=== PATIENT | female | born 2005 | race Caucasian/White ===

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

== ENCOUNTER 2023-04-10 14:03 | Outpatient (CLI) | payer BC, SELFPAY ==
[2023-04-10 16:20] LABS: HCG,Quantitative 98476 mIU/ml (0-5.42)
== END 2023-04-10 23:59 ==
LOC: LAB 14:04
PROVIDERS: Visit Provider Nurse Practitioner Family
DX: Z34.91 Encounter for supervision of normal pregnancy, unspecified, first trimester; Z3A.08 8 weeks gestation of pregnancy
CPT/HCPCS: 36415; 84144; 84702

== ENCOUNTER 2023-04-12 16:45 | Outpatient (CLI) | payer BC, SELFPAY ==
[2023-04-12 17:33] LABS: Basophils % 0.4 % (0.1-2.0); Eosinophils # 0.4 K/mm3 (0.0-0.4); Eosinophils % 4.2 % (0.1-12.0); Hematocrit 38.5 % (37.0-47.0); Hemoglobin 13.5 g/dL (12.2-16.2); Lymphocytes # 2.3 K/mm3 (0.7-4.5); Lymphocytes % 24.5 % (10-50); Mean Corpuscular HGB Conc 35.1 g/dL (31.8-35.4); Mean Corpuscular Hemoglobin 30.9 pg (27.0-31.2); Mean Corpuscular Volume 88.1 fl (81-99); Mean Platelet Volume 9.9 fl (7.4-10.4); Monocytes # 0.4 K/mm3 (0.1-1.0); Monocytes % 4.3 % (1.7-9.3); Neutrophils # 6.4 K/mm3 (1.8-7.8); Neutrophils % 66.6 % (37.0-80.0); Platelet Count 188 K/mm3 (142-424); Red Blood Count 4.37 M/mm3 (4.20-5.40); Red Cell Distribution Width 13.3 % (11.5-17.5); White Blood Count 9.6 K/mm3 (4.5-13.0)
[2023-04-13 11:36] LABS: Rapid Plasma Reagin Ab Titer Non Reactive titer (NonRea<1:1)
[2023-04-14 06:43] LABS: Neisseria gonorrhoeae, NAA Negative (Negative)
[2023-04-15 10:41] LABS: HIV Screen 4th Generation wRfx Non Reactive; Hepatitis B Surface Antigen Negative; Hepatitis C Antibody Non Reactive
[2023-04-15 10:42] LABS: Rubella Antibodies, IgG 1.45
== END 2023-04-12 23:59 ==
LOC: LAB 16:48
PROVIDERS: Visit Provider Obstetrics & Gynecology
DX: Z34.91 Encounter for supervision of normal pregnancy, unspecified, first trimester (principal); Z3A.08 8 weeks gestation of pregnancy
CPT/HCPCS: 36415; 85025; 86593; 86703; 86762; 86850; 87086; 87340; 87380; 87491; 87591; G0432

== ENCOUNTER 2023-04-13 16:01 | Outpatient (CLI) | payer BC, SELFPAY ==
--- NOTE | 2023-04-13 16:04 | US_ITS ---
PROCEDURE: US OB <= 14 WEEKS FETUS CLINICAL INDICATION: US OB Before 14 wks for Dates COMPARISON: No exams were available for comparison FINDINGS: Transvaginal sonographic images of the pelvis were obtained. From her last menstrual period she is 13weeks 3days. An intrauterine gestational sac is present with a pole with a crown-rump length of 2.2cm This correlates to a gestational age of 8weeks 6days. heart tones are present with an FHR of 172bpm. Yolk sac is noted. The yolk sac measures 6.9mm. The right ovary is seen and appears normal. The left ovary is seen and appears normal. A corpus luteum is seen in the left ovary. There is trace fluid in the cul-de-sac. IMPRESSION: 1. Viable fetus within the uterine cavity. There is heart rate activity. 2. The fetus measures 8 weeks 6 days. 3. Both ovaries are seen and appear normal. 4. Her dates are off by 5 weeks and her due date should be revised to reflect this. Her revised DIEGO will be 11/17/2023. Dictated by: Navneet White MD 04/14/2023 12:56 Navneet White MD in OV 04/14/2023 12:56
== END 2023-04-13 23:59 ==
LOC: RAD 16:01
PROVIDERS: Visit Provider Obstetrics & Gynecology
DX: Z34.91 Encounter for supervision of normal pregnancy, unspecified, first trimester (principal); Z3A.08 8 weeks gestation of pregnancy
CPT/HCPCS: 76801

== ENCOUNTER 2023-05-13 00:12 | Emergency (ER) | payer BC, SELFPAY ==
--- NOTE | 2023-05-13 00:16 | HMH.EDGENADL ---
Discharge Plan Disposition Patient Disposition: Home, Self-Care Chief Complaint: Eye Problems Prescriptions Prescriptions: No Action progesterone micronized [Prometrium] 100 mg capsule 100 mg vaginal DAILY 21 Days Qty: 30 2RF Rx Instructions: Please place one tablet vaginally each night until 12 weeks gestation ondansetron 4 mg tablet,disintegrating 4 mg PO Q6H Qty: 30 1RF [id number] acid 1 EACH tablet,chewable 1 tab PO DAILY Activity Restrictions/Add. Instructions Additional Instructions/Restrictions: Use erythromycin ointment 4 times per day for the next few days in case you have a scratch on the eye. This is most likely allergic however, recommend taking xryo-xpi-smeavdz allergy medication and avoiding exposure to the allergen. Please follow-up with your primary care provider. Please return to the emergency department if you develop any new or worsening symptoms or become concerned for your health. Clinical Impressions Clinical Impression: Acute allergic conjunctivitis of left eye Discharge ED Provider: Yosvany Martínez Adult HPI General Stated complaint: Left eye redness Time Seen by Provider: 05/13/23 00:15 History of Present Illness HPI narrative: 17-year-old female, reportedly actively , presents with left eye redness. She reports this happened about 10 minutes ago. She is allergic to dogs and then touched her left eye and then it started getting a little swollen. She reports she feels like there might be something in it. She denies significant pain. She denies vision changes. Related Data Home Medications Medication Instructions Recorded Confirmed vitamin no.115-iron 29 1 tab PO DAILY 07/20/20 05/10/23 mg-folic acid 1 mg chewable tablet Previous Rx's Medication Instructions Recorded progesterone micronized 100 mg 100 mg vaginal DAILY 21 days #30 04/12/23 capsule (Prometrium) caps ondansetron 4 mg disintegrating 4 mg PO Q6H #30 tabs 04/23/23 tablet Allergies Allergy/AdvReac Type Severity Reaction Status Date / Time No Known Allergies Allergy Verified 05/10/23 13:25 [facility] Disclaimer: The information contained in this section may have been updated after the patient was seen, as this information can be updated by other users. Medical History No significant past medical history Surgical History No history of previous surgery Social History Smoking Status: Current every day smoker tobacco type: cigarettes packs per day: 1 second hand exposure: Yes alcohol intake: never substance use type: marijuana current occupational status: other Travel in the last 8 weeks: None household members: family housing: house ROS Obtained: Yes All systems reviewed & no additional complaints except as documented Physical Exam General General appearance: alert and in no apparent distress Head Head exam: atraumatic and normocephalic Eye Eye exam: Present PERRL, EOMI and other (Mild left conjunctival injection and mucous membrane swelling. No evidence of corneal abrasion or foreign body on fluorescein staining.) ENT ENT exam: Present normal oropharynx and normal external ear exam Neck Neck exam: Present normal inspection and full ROM Chest Chest inspection: Present normal inspection and symmetric chest wall rise; Absent tenderness Respiratory Respiratory exam: Present normal lung sounds bilaterally; Absent respiratory distress Cardiovascular Cardiovascular exam: Present regular rate and normal rhythm Abdominal Exam Abdominal exam: Present soft; Absent distention, tenderness or guarding Extremities Exam Extremities exam: Present normal inspection; Absent edema or joint swelling Back Exam Back exam: Present normal inspection; Absent tenderness Neurological Exam Neurological exam: Present alert and oriented X3; Absent motor sensory deficit Psychiatric Psychiatric exam: Present normal affect and normal mood Skin Skin exam: Present warm, dry and normal color Lymphatic Lymphatic Findings: no adenopathy Medical Decision Making Medical Records Medical records reviewed: Yes I reviewed the patient's medical records. Corey Inquiry Pt receiving controlled substance: No Corey was queried for this patient: No Lab Data Lab results reviewed: Yes I reviewed the patient's lab results. Medical Decision Narrative: 17-year-old female, patient complicated with , presents with left eye redness for the last 10 minutes after she touched a dog and then touched her left eye. She is allergic to dogs. Differential diagnosis includes is not limited to allergic conjunctivitis, foreign body, corneal abrasion. Fluorescein staining performed and shows no evidence of corneal abrasion or foreign body. Exam is consistent with allergic conjunctivitis. Low concern for emergent pathology at this time. Patient was given erythromycin ointment out of an abundance of caution and instructed to use [id number]-[id number] antihistamines and avoid exposure to the allergen. Patient discharged in stable condition. Procedures Risk/Benefits of Procedure(s) Were Explained: Yes Critical Care Critical Care Time Critical Care Time: No
[2023-05-13 00:21] VITALS: BP 145/92; PULSE 104; RESP 18; TEMP 36.6; O2SAT 98; BMI 27.8
[2023-05-13] MEDS: ERYTHROMYCIN BASE 1 GM OINT...G. OP (00:30)
[2023-05-13] MEDS: FLUORESCEIN SODIUM 1MG STRIP 1 MG OP (00:30)
[2023-05-13] MEDS: TETRACAINE 0.5% OPTH SOL 15ML OP (00:30)
[2023-05-13 00:44] VITALS: BP 128/81; PULSE 100; RESP 18; TEMP 36.6; O2SAT 98
== END 2023-05-13 00:37 | disposition home or self-care (01) ==
PROVIDERS: Emergency Provider Emergency Medicine
DX: H10.12 Acute atopic conjunctivitis, left eye (principal); F17.210 Nicotine dependence, cigarettes, uncomplicated
CPT/HCPCS: 99283

== ENCOUNTER 2023-07-28 00:25 | Emergency (ER) | payer BC, SELFPAY ==
[2023-07-28] VITALS (9 sets, daily range): BP systolic 98–135; BP diastolic 52–84; PULSE 74–90; RESP 15–20; TEMP 36.6; O2SAT 95–98; BMI 28.9
--- NOTE | 2023-07-28 00:34 | ECG_ITS ---
APPROVED REPORT Exam: Resting ECG HR:90 bpm ECG Measurements Heart Rate 90 AXES IN 129 P 11 QRSd 92 QRS 68 QT 357 T 16 QTc 405 Conclusion SINUS RHYTHM NONSPECIFIC T-WAVE ABNORMALITY BORDERLINE ECG No STEMI Electronically signed by : RADHA NELSON, 07/28/2023 06:07:37
--- NOTE | 2023-07-28 00:58 | XR_ITS ---
PROCEDURE INFORMATION: Exam: XR Chest Exam date and time: 07/28/2023 1:09 AM Age: 18 years old Clinical indication: Pain; Chest pressure; Additional info: Cp TECHNIQUE: Imaging protocol: Radiologic exam of the chest. Views: 1 view. COMPARISON: CR CXR2V XR chest 2V 06/03/2017 9:03 PM FINDINGS: Lungs: Low lung volumes without definite focal airspace consolidation. Pleural spaces: No pneumothorax. Heart/Mediastinum: Unremarkable cardiomediastinal silhouette. Bones/joints: No acute osseous findings. IMPRESSION: Low lung volumes without definite focal airspace consolidation.
[2023-07-28 01:06] LABS: Basophils # 0.1 K/mm3 (0-0.2); Basophils % 0.7 % (0.1-2.0); Eosinophils # 0.3 K/mm3 (0.0-0.4); Eosinophils % 3.2 % (0.1-12.0); Hematocrit 35.8 % (37.0-47.0); Lymphocytes # 2.2 K/mm3 (0.7-4.5); Lymphocytes % 25.2 % (10-50); Mean Corpuscular HGB Conc 33.5 g/dL (31.8-35.4); Mean Corpuscular Hemoglobin 31.6 pg (27.0-31.2); Mean Corpuscular Volume 94.4 fl (81-99); Mean Platelet Volume 9.6 fl (7.4-10.4); Monocytes # 0.4 K/mm3 (0.1-1.0); Monocytes % 4.6 % (1.7-9.3); Neutrophils # 5.7 K/mm3 (1.8-7.8); Neutrophils % 66.3 % (37.0-80.0); Platelet Count 189 K/mm3 (142-424); Red Cell Distribution Width 14.1 % (11.5-17.5); White Blood Count 8.6 K/mm3 (4.5-13.0)
[2023-07-28] MEDS: BELLADONNA ALKALOIDS 60 ML ML PO (01:06)
[2023-07-28 01:07] LABS: Chloride 106 mmol/L (98-107); Potassium 3.7 mmoL/L (3.5-5.1); Sodium 135 mmol/L (136-145)
[2023-07-28 01:09] LABS: Alanine Aminotransferase 159 U/L (12-78); Alkaline Phosphatase 107 U/L (38-126); Aspartate Amino Transferase 174 U/L (14-36); Bilirubin,Total 0.6 mg/dl (0.2-1.3); Blood Urea Nitrogen 5 mg/dl (7-17); Creatinine Clearance Estimated 254 mL/min (50-200); Estimated Glomerular Filt Rate 203 ml/min (>60); GFR (African American) 246 ML/MIN (>60)
[2023-07-28 01:10] LABS: Albumin Level 3.8 g/dl (3.5-5.0); Albumin/Globulin Ratio 1.2 (1.1-1.8); Anion Gap 10.7 mEq/L (5-15); Calcium 9.2 mg/dl (8.4-10.2); Carbon Dioxide 22 mmol/L (22.0-30.0); Globulin 3.1 g/dL (1.3-3.2); Glucose 97 mg/dl (74-100); Lipase 87 U/L (23-300); Total Protein,Serum 6.9 g/dl (6.3-8.2)
--- NOTE | 2023-07-28 01:18 | ED_ITS ---
Discharge Plan Disposition Patient Disposition: Home, Self-Care Condition: Good Prescriptions Prescriptions: New famotidine 20 mg tablet 20 mg PO DAILY Qty: 14 0RF No Action [id number] 1 EACH tablet,chewable 1 tab PO DAILY Referrals Follow up/Referrals: Phoebe Cifuentes DO [Staff Physician] - See instructions (needs close follow up for chest pain, dyspepsia, biliary symptoms in , urine follow up) Ventura Watson MD [Staff Physician] - See instructions (24w , biliary colic, biliary sludge) Matthew Gandhi MD [Staff Physician] - See instructions (24w chest pain) Provider,MD Tru [Primary Care Provider] - See instructions Activity Restrictions/Add. Instructions Additional Instructions/Restrictions: You were evaluated in the ER. You are appropriate for discharge at this time. Take the prescribed famotidine (Pepcid) as directed. Avoid using Tums if possible. Drink plenty of water. Call OB and make an appointment for follow-up as soon as possible. Also follow-up with cardiology and general surgery regarding your chest pain and sludge in the gallbladder. Return to the ER with new, worsening, or otherwise concerning symptoms. Clinical Impressions Clinical Impression: Sludge in gallbladder, Chest pain Discharge ED Provider: Nichole Thorne General Chief Complaint: Chest Pain Stated Complaint: cp past 3 days,thru back,soa,nausea,24wks antepart Time Seen by Provider: 07/28/23 00:46 Mode of Arrival: Ambulatory Source of Information: Patient Limitations: No Limitations Description of Symptoms (Recalled from ER Triage Doc. by RN): Pt presents to ED for CP/epigastric pain X 3 days. Pt is 24 weeks . Pt has no other complaints at this time. Pt is A&O*4. History of Present Illness HPI narrative: 18-year-old female presents to the ER with complaints of what she describes as chest pain however she points to her epigastric region for 3 days. Patient is 24 weeks . She states her pain has been going on for the last 3 to 4 days. She mentioned it to her OB at her most recent follow-up appointment. I reviewed this record and they did not have specific concerns for her discomfort at that time. Patient states she has been taking Tums without significant relief. She states laying down does make it worse, being upright improves it. She states her pain gets significantly worse with eating. She is not having any vomiting. 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 Patient reports to me that she is not having any dysuria or hematuria but states she had a questionable urinary tract infection a few weeks ago in [place]. 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 Review of her most recent OB note demonstrates they were going to send her urine for culture. Related Data Home Medications Medication Instructions Recorded Confirmed vitamin no.115-iron 29 1 tab PO DAILY 07/20/20 07/26/23 mg-folic acid 1 mg chewable tablet Previous Rx's Medication Instructions Recorded famotidine 20 mg tablet 20 mg PO DAILY #14 tabs 07/28/23 Allergies Allergy/AdvReac Type Severity Reaction Status Date / Time No Known Allergies Allergy Verified 07/26/23 10:35 [facility] Disclaimer: The information contained in this section may have been updated after the patient was seen, as this information can be updated by other users. Medical History No significant past medical history Surgical History No history of previous surgery Social History Smoking Status: Never smoker second hand exposure: Yes alcohol intake: never substance use type: marijuana current occupational status: other Travel in the last 8 weeks: None household members: family housing: house ROS Obtained: Yes All systems reviewed & no additional complaints except as documented Constitutional Constitutional: Denies chills, Denies fever(s), Denies headache(s) and Denies weakness Eyes Eyes: Denies change in vision ENT Ears, Nose, Mouth, and Throat: Denies dizziness, Denies headache(s), Denies nasal congestion and Denies sore throat Cardiovascular Cardiovascular: Reports chest pain (Lower chest, epigastric), Denies dyspnea and Denies leg edema Respiratory Respiratory: Denies cough and Denies dyspnea Gastrointestinal Gastrointestingal: Reports abdominal pain, belching, heartburn and nausea; Denies constipation, diarrhea or vomiting Genitourinary Female Genitourinary: Denies dysuria Musculoskeletal Musculoskeletal: Denies arthralgias, Denies myalgias, Denies numbness and Denies tingling Integumentary/Breasts Skin/Breast: Denies change in pigmentation Neurologic Neurologic: Denies dizziness, Denies headache(s), Denies numbness, Denies tingling and Denies weakness Physical Exam General General appearance: alert and in no apparent distress Head Head exam: atraumatic and normocephalic Eye Eye exam: Present PERRL and EOMI ENT ENT exam: Present mucous membranes moist Neck Neck exam: Present normal inspection and full ROM Chest Chest inspection: Present symmetric chest wall rise; Absent tenderness Respiratory Respiratory exam: Present normal lung sounds bilaterally; Absent respiratory distress, wheezes or stridor Cardiovascular Cardiovascular exam: Present regular rate and normal rhythm Abdominal Exam Abdominal exam: Present soft and tenderness (Epigastric, mild right upper quadrant); Absent distention, guarding or rebound Extremities Exam Extremities exam: Present full ROM Back Exam Back exam: Absent CVA tenderness (R) or CVA tenderness (L) Neurological Exam Neurological exam: Present alert and oriented X3; Absent motor sensory deficit Psychiatric Psychiatric exam: Present normal affect and normal mood Skin Skin exam: Present warm and dry HEART Score HEART Score HEART Score assessment performed?: Yes History (anamnesis): Slightly suspicious ECG: Normal Age: <45 years Risk factors: No known risk factors Troponin: </= normal limit HEART Score: 0 Procedures Miscellaneous Procedure Procedure Performed: Limited RUQ ultrasound Indication: Abdominal pain, nausea Identified structures: -Gallbladder -Gallbladder wall -Liver Findings: Sonographic Stubbs sign: Absent Gallstones: Absent Sludge: Present Pericholecystic fluid: Absent Maximal GB wall thickness (mm): [normal is </= 3mm] Normal, 2 mm Common bile duct width (mm): [normal is </= 6mm] Unable to be visualized, not measured Gallbladder width (cm): [normal is < 4cm] Normal Gallbladder length (cm): [normal is < 10cm] Normal Impression: Biliary sludge without findings of cholecystitis Images were saved to permanent archive The study was technically adequate CPT 02503-37 This study was performed by me, and I personally interpreted all images/videos. Based on my clinical judgement, these images were adequate and did not necessitate further imaging. Critical Care Critical Care Time Critical Care Time: No Medical Decision Making Medical Records Medical records reviewed: Yes I reviewed the patient's medical records. MR Comment: See HPI for details of review of recent OB note Corey Inquiry Pt receiving controlled substance: No Vital Signs Vital Signs: 07/28/23 00:28 07/28/23 00:45 07/28/23 00:51 Temperature 97.9 F Temperature Source Oral Pulse Rate 88 90 Pulse Rate [Left] 90 Respiratory Rate 15 15 Blood Pressure 135/84 Blood Pressure [Right Arm] 135/84 Blood Pressure Mean Blood Pressure Mean [Right Arm] 101 02 Sat by Pulse Oximetry 98 98 Oxygen Delivery Method Room Air 07/28/23 01:01 07/28/23 01:35 07/28/23 02:00 Temperature Temperature Source Pulse Rate 84 84 74 Pulse Rate [Left] Respiratory Rate 16 15 20 Blood Pressure 122/80 106/71 L 106/52 L Blood Pressure [Right Arm] Blood Pressure Mean 89 Blood Pressure Mean [Right Arm] 02 Sat by Pulse Oximetry 98 95 95 Oxygen Delivery Method Room Air Room Air 07/28/23 02:30 07/28/23 02:59 Temperature Temperature Source Pulse Rate 86 89 Pulse Rate [Left] Respiratory Rate 17 20 Blood Pressure 98/56 L 103/68 L Blood Pressure [Right Arm] Blood Pressure Mean Blood Pressure Mean [Right Arm] 02 Sat by Pulse Oximetry 95 97 Oxygen Delivery Method Room Air Room Air Lab Data Labs: Lab Results 07/28/23 00:40: WBC 8.6, RBC 3.80 L, Hgb 12.0 L, Hct 35.8 L, MCV 94.4, MCH 31.6 H, MCHC 33.5, RDW 14.1, Plt Count 189, MPV 9.6, Neut % (Auto) 66.3, Lymph % (Auto) 25.2, [place] % (Auto) 4.6, Eos % (Auto) 3.2, Baso % (Auto) 0.7, Neut # (Auto) 5.7, Lymph # (Auto) 2.2, [place] # (Auto) 0.4, Eos # (Auto) 0.3, Baso # (Auto) 0.1, Sodium 135 L, Potassium 3.7, Chloride 106, Carbon Dioxide 22, Anion Gap 10.7, BUN 5 L, Creatinine 0.40 L, Estimated Creat Clear 254, Estimated GFR 203, Est GFR ( Amer) 246, Glucose 97, Calcium 9.2, Total Bilirubin 0.6, A ST 174 H, ALT 159 H, Alkaline Phosphatase 107, Troponin I < 0.01, Total Protein 6.9, Albumin 3.8, Globulin 3.1, Albumin/Globulin Ratio 1.2, Lipase 87 07/28/23 01:33: Urine Color Yellow, Urine Appearance Clear, Urine pH 7.0, Ur Specific [place] 1.015, Urine Protein Negative, Urine Glucose (UA) Negative, Urine Ketones Negative, Urine Blood Negative, Urine Nitrate Negative, Urine Bilirubin Negative, Urine Urobilinogen 1.0, Ur Leukocyte Esterase Trace, Urine RBC None, Urine WBC 3-5, Ur Squamous Epith Cells 3-5, Urine Bacteria Trace 07/28/23 00:40 07/28/23 00:40 Response Orders (Tests/Meds): ED MEDICATIONS Discontinued Medications Generic Name Dose Route Start Last Admin Trade Name Freq PRN Reason Stop Dose Admin Acetaminophen 1,000 mg 07/28/23 01:24 07/28/23 01:36 Acetaminophen 1,000mg/100ml Vial IV 07/28/23 01:25 1,000 mg ONCE ONE Administration Belladonna Alkaloids 60 ml 07/28/23 00:58 07/28/23 01:06 Belladonna Alkaloids 60 Ml Ml PO 07/28/23 00:59 60 ml ONCE ONE Administration Ondansetron HCl 4 mg 07/28/23 01:24 07/28/23 01:36 Ondansetron 4mg/2ml Vial IV 07/28/23 01:25 4 mg ONCE ONE Administration ORDERS Category Date Time Status CXR --portable [XR chest portable] Stat Exams 07/28/23 00:58 Completed POCUS Point of Care (ER Only) Stat Exams 07/28/23 00:58 Taken CBC w/Auto Diff [Complete Blood Count Auto Diff] Stat Lab 07/28/23 00:40 Completed CMP [Comprehensive Metabolic Panel] Stat Lab 07/28/23 00:40 Completed Lipase Stat Lab 07/28/23 00:40 Completed Trop I [Troponin I] Stat Lab 07/28/23 00:40 Completed Troponin I Q3H Lab 07/28/23 04:00 Ordered Troponin I Q3H Lab 07/28/23 07:00 Ordered Urinalysis and Microscopic Stat Lab 07/28/23 01:33 Completed Urine Culture Stat Micro 07/28/23 01:33 Received MDM Narrative Medical Decision Narrative: In summary, this 18year old female G4, P1, 24 weeks presents to the emergency department today with epigastric abdominal pain, chest pain. On initial evaluation patient is hemodynamically stable, afebrile, she has frequent belching and tenderness in the epigastric region without rebound or guarding, nonacute abdomen, reassuring cardiopulmonary exam. Differential diagnosis includes but is not limited to ACS, esophageal spasm, pneumothorax, I considered other etiologies such as dyspepsia, cholecystitis, cholelithiasis, hepatitis, I have increased concerning for esophageal spasm and other findings consistent with gastritis/dyspepsia since patient has postprandial pain. I did consider PE however patient is not tachycardic, hypotensive, I have much lower suspicion for this. Given patient's history of possible UTI during , I also considered this as an etiology for her nausea and belching. Based on these concerns, I ordered cardiac workup, chest x-ray, I also personally performed [id number] bedside ultrasound. ECG personally interpreted demonstrates normal sinus rhythm, rate 90, normal axis, KS and QTc normal, no STEMI. Patient received GI cocktail, Zofran, Ofirmev for treatment. Labs personally reviewed demonstrate no leukocytosis, mild anemia with hemoglobin 12.0, sodium slightly low at 135, potassium and chloride normal, BUN and creatinine with good kidney function, mildly elevated AST and ALT but normal alkaline phosphatase, initial troponin undetectably low at less than 0.01, reassuring against acute cardiac abnormality or PE causing heart strain. Further reassurance against PE. Urinalysis demonstrates contamination with squamous cells, trace bacteria, few WBCs. I sent urine culture, I discussed this with OB and they have a urine ID pending. She does not recommend antibiotics at this time. XR personally interpreted demonstrates no acute intrathoracic abnormality on my personal interpretation. See radiology read for final interpretation Bedside ultrasound demonstrates biliary sludge but no cholecystitis. See procedure note. On reassessment after GI cocktail, patient has had some improvement of symptoms. She then received Zofran and Ofirmev and had further improvement. I discussed this case with OB regarding patient's symptoms and reassuring workup thus far. They are going to schedule the patient for reevaluation to follow-up urine studies as well as further discuss her symptoms. Dr. Cifuentes also recommended prescription for Pepcid. She also recommends follow-up with cardiology just to close the loop about patient's chest pain prior to delivery. I provided the patient referrals for follow-up with cardiology as well as general surgery. She is going to call OB Sunday morning to schedule close follow-up with them. She has ultrasound scheduled for 07/30 with OB. Pepcid was prescribed. Patient was given instructions on symptomatic management, follow up instructions, and return precautions for the emergency department. Patient indicated understanding and was discharged in stable condition.
[2023-07-28 01:23] LABS: Troponin I < 0.01 ng/ml (0.00-0.034)
[2023-07-28] MEDS: ONDANSETRON 4MG/2ML VIAL 4 MG IV (01:36)
[2023-07-28] MEDS: ACETAMINOPHEN 1,000MG/100ML VIAL 1000 MG IV (01:36)
[2023-07-28 01:40] LABS: Appearance,Urine CLEAR (Clear); Bilirubin,Urine Negative (Negative); Blood, Urine Negative (Negative); Color,Urine YELLOW (Yellow); Glucose,Urine (UA) Negative (Negative); Ketones,Urine Negative (Negative); Leukocyte Esterase,Urine TRACE (Negative); Microscopic, Urine URINE MICROSCOPIC (MICROSCOPIC); Nitrate,Urine Negative (Negative); Protein,Urine Negative (Negative); Specific Gravity, Urine 1.015 (1.005-1.030)
[2023-07-28 01:51] LABS: Bacteria,Urine Trace /lpf
== END 2023-07-28 03:18 | disposition home or self-care (01) ==
PROVIDERS: Emergency Provider Emergency Medicine
DX: O26.892 Other specified pregnancy related conditions, second trimester (principal); R07.89 Other chest pain; R10.13 Epigastric pain; K82.8 Other specified diseases of gallbladder; B96.89 Other specified bacterial agents as the cause of diseases classified elsewhere; Z3A.24 24 weeks gestation of pregnancy
CPT/HCPCS: 71045; 80053; 81001; 83690; 84484; 85025; 87086; 93005; 96374; 96375; 99285; J0131; J2405

== ENCOUNTER 2023-07-31 08:19 | Outpatient (CLI) | payer BC, SELFPAY ==
--- NOTE | 2023-07-31 08:23 | US_ITS ---
PROCEDURE: US OB /MATERNAL DETAIL CLINICAL INDICATION: 20 wk + Anatomy Scan US OB Complete COMPARISON: US US OB <= 14 WEEKS FETUS from 04/13/2023 FINDINGS: Transabdominal sonographic images of the pelvis were obtained. From her established due date she is 24 weeks 3 days. Single viable intrauterine gestation. Breech position. Placenta: Anteriorplacenta grade 1. There is an average amount of fluid. The cervix appears satisfactory. Closed and measuring 5.4 cm in length. Complete survey performed and was unremarkable on the submitted images as in PACS. No discrete anomalies identified on survey imaging by technologist. Active fetus. Three-vessel cord with satisfactory umbilical cord insertion. 4- chamber heart noted. Situs, aortic arch, LVOT, RVOT, three-vessel view appear normal. Survey of brain & ventricles Unremarkable. Cerebellum, thalamus, choroid plexus, cisterna magna appear normal. Face and neck survey unremarkable. Profile, nasion, lips and nose appeared normal. Diaphragm and chest views unremarkable. Abdomen: Both kidneys noted and unremarkable. Stomach and bladder noted and satisfactory. Spine: Survey of the spine suboptimal with no anomalies identified nor imaged. Cervical, thoracic, lower spine appear normal. Views were suboptimal. Both arms and legs noted. Amniotic Fluid: Adequate. Due to position Measurements: Average ultrasound age 25weeks. Estimated due date by ultrasound age 0811/13/2023. Estimated weight 740g BPD = 25weeks 3days HC = 24weeks 3days AC = 25weeks 3days FL = 24weeks 2days Growth Percentile= 60 Heart Rate = 139bpm Cerebellum = 23weeks 2days Humerus = 25weeks 0 days HC/AC is 1.07 FL/BPD is 0.69 FL/AC is 0.21 IMPRESSION: 1. Viable fetus in the breech presentation with an anterior placenta grade 1. 2. The fluid is within normal limits. 3. Anatomical scan appears normal. 4. biometry is consistent with the dates. 5. The spine appears normal but we did not get optimal views due to position. Would suggest repeat views in 2 weeks. Dictated by: Navneet White MD 07/31/2023 10:59 Navneet White MD in [facility] 07/31/2023 10:59
== END 2023-07-31 23:59 | disposition home or self-care (01) ==
LOC: RAD 08:20
PROVIDERS: Visit Provider Obstetrics & Gynecology
DX: O09.32 Supervision of pregnancy with insufficient antenatal care, second trimester (principal); Z3A.24 24 weeks gestation of pregnancy; Z36.3 Encounter for antenatal screening for malformations
CPT/HCPCS: 76811

== ENCOUNTER 2023-08-14 15:14 | Outpatient (CLI) | payer BC, SELFPAY | END 2023-08-14 23:59 | disposition home or self-care (01) | LOC: RT 15:15 | PROVIDERS: Visit Provider Physician Assistant | DX: R06.00 Dyspnea, unspecified (principal); R07.9 Chest pain, unspecified; R94.31 Abnormal electrocardiogram [ECG] [EKG]; Z82.49 Family history of ischemic heart disease and other diseases of the circulatory system | CPT/HCPCS: 93225; 93227 ==

== ENCOUNTER 2023-08-15 11:29 | Outpatient (CLI) | payer BC, SELFPAY ==
[2023-08-15 12:03] LABS: Basophils # 0.1 K/mm3 (0-0.2); Basophils % 0.5 % (0.1-2.0); Eosinophils # 0.4 K/mm3 (0.0-0.4); Eosinophils % 3.8 % (0.1-12.0); Hematocrit 34.4 % (37.0-47.0); Hemoglobin 11.7 g/dL (12.2-16.2); Lymphocytes # 2.2 K/mm3 (0.7-4.5); Lymphocytes % 21.7 % (10-50); Mean Corpuscular Hemoglobin 32.1 pg (27.0-31.2); Mean Corpuscular Volume 94.4 fl (81-99); Mean Platelet Volume 9.9 fl (7.4-10.4); Monocytes # 0.3 K/mm3 (0.1-1.0); Monocytes % 3.2 % (1.7-9.3); Neutrophils # 7.3 K/mm3 (1.8-7.8); Neutrophils % 70.8 % (37.0-80.0); Platelet Count 189 K/mm3 (142-424); Red Blood Count 3.65 M/mm3 (4.20-5.40); Red Cell Distribution Width 13.8 % (11.5-17.5); White Blood Count 10.2 K/mm3 (4.5-13.0)
[2023-08-15 12:28] LABS: Glucose,Fasting 118 mg/dl (74-100)
--- NOTE | 2023-08-15 13:06 | US_ITS ---
PROCEDURE: US OB FOLLOW UP CLINICAL INDICATION: Spine of fetus, did not get optimal views COMPARISON: US US OB /MATERNAL DETAIL from 07/31/2023 FINDINGS: Transabdominal sonographic images of the pelvis were obtained. The following parameters are obtained: From her established due date she is 26weeks 4days Viable fetus in the cephalic presentation with an anterior placenta grade 1. The cervix measures 3.4 cm. heart rate: 142bpm bpm. BPD: 27weeks 3days, 67 percentile HC: 27weeks 6days, 65 percentile AC: 26weeks 5days, 46 percentile FL: 26weeks 5days, 38 percentile HC/AC: 1.15 FL/BPD: 0.73 FL/AC: 0.22 Growth percentile: 49 Amniotic fluid index: Appears normal, MVP 4.18 cm. No obvious anomalies evident. profile seen, nasion, stomach, bladder, kidneys, three-vessel cord, four chamber heart appear normal. Cervical, thoracic and lower spine appear normal today. IMPRESSION: 1. Viable fetus in the cephalic presentation with an anterior placenta grade 1. 2. The fluid is within normal limits with an MVP of 4.18 cm. 3. There has been good interval growth with the fetus currently 49th percentile. 4. Limited anatomical scan appears normal. Detailed scan of the spine appears normal. Dictated by: Navneet White MD 08/15/2023 15:19 Navneet White MD in [facility] 08/15/2023 15:19
[2023-08-15 13:49] LABS: Glucose 1 Hour 137 mg/dL (74-100)
== END 2023-08-15 23:59 | disposition home or self-care (01) ==
LOC: RAD 11:31
PROVIDERS: Visit Provider Obstetrics & Gynecology
DX: O26.892 Other specified pregnancy related conditions, second trimester (principal); Z36.2 Encounter for other antenatal screening follow-up; O32.1XX0 Maternal care for breech presentation, not applicable or unspecified; Z3A.25 25 weeks gestation of pregnancy
CPT/HCPCS: 36415; 76816; 82951; 85025

== ENCOUNTER 2023-09-03 13:49 | Outpatient (CLI) | payer BC, SELFPAY ==
--- NOTE | 2023-09-03 13:50 | CA_ITS ---
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 2D Dimensions LVEF (Hurst's) 50.00 % F: 54 - 74 LV Volume 99.00 mL F: 46 - 106 LV Volume Index 56.3 mL/m2 F: 29 - 61 LA Volume 31.60 mL LA Volume Index 17.95 mL/m2 (M/F) 16-34 EF AP4 53.00 % EF AP2 52.3 % EF BP 50.0 % GL Strain -17.6 % M-Mode Dimensions RVDd 2.21 cm (0.9-2.6) LA Diam 2.93 cm (1.9-4.0) LVDd 4.22 cm (3.5-5.7) LVDs 3.15 cm (3.5-5.7) IVSd 0.77 cm (0.6-1.1) PWd 0.60 cm (0.6-1.1) EF (Teich) 50.40% FS 25.40% EDV (Teich) 79.50 mL ESV (Teich) 39.40 mL LV Diastology E Decel Time 150 (160-240 msec) E/A Ratio 1.3 Mitral Valve MV E Max Musa. 94.0 (40-130 cm/s) MV A Velocity 71.0 (40-130 cm/s) E/A Ratio 1.33 MV PHT 44.0 ms Tricuspid Valve TR P. Velocity 170.00 cm/s RAP Estimate 10.00 mmHg RVSP 21.60 mmHg Left Ventricle The left ventricle is normal size. The left ventricular systolic function is normal. The left ventricular ejection fraction is within the normal range. There is normal left ventricular wall thickness. There is normal LV segmental wall motion. The left ventricular diastolic function is normal. LVEF is 55%. Right Ventricle The right ventricle is normal size. The right ventricular systolic function is normal. Atria The left atrium size is normal. The right atrium size is normal. The interatrial septum is not well-visualized. Aortic Valve The aortic valve opens well. There is no aortic valvular stenosis. Trace aortic regurgitation is present. Mitral Valve The mitral valve is normal in structure. No evidence of mitral valve stenosis. Trace mitral valve regurgitation noted. Tricuspid Valve The tricuspid valve leaflets are thin and pliable. Mild tricuspid regurgitation. RVSP is 20-25 mmHg. Pulmonic Valve The pulmonary valve is normal in structure. Mild pulmonic regurgitation. Great Vessels The aortic root is normal in size. The ascending aorta is not well-visualized. IVC is normal in size and collapses >50% with inspiration. Pericardium There is no pericardial effusion. Other Information Study Quality: Fair Conclusion Normal biventricular systolic function. Mild TR, mild PI. Electronically signed by : Peyton Nicole MD 09/04/2023 11:56:03
== END 2023-09-03 23:59 | disposition home or self-care (01) ==
LOC: RT 13:50
PROVIDERS: Visit Provider Physician Assistant
DX: R07.9 Chest pain, unspecified (principal); R06.00 Dyspnea, unspecified; R94.31 Abnormal electrocardiogram [ECG] [EKG]; Z82.49 Family history of ischemic heart disease and other diseases of the circulatory system
CPT/HCPCS: 93306

== ENCOUNTER 2023-09-14 01:14 | Outpatient (CLI) | payer BC, SELFPAY ==
[2023-09-14 01:46] VITALS: BP 115/70; PULSE 96; RESP 16; TEMP 36.9; O2SAT 98; BMI 30.2
[2023-09-14 01:56] LABS: Microscopic, Urine URINE MICROSCOPIC (MICROSCOPIC)
[2023-09-14 01:57] LABS: Bilirubin,Urine Negative (Negative); Blood, Urine Negative (Negative); Color,Urine YELLOW (Yellow); Glucose,Urine (UA) Negative (Negative); Ketones,Urine Negative (Negative); Leukocyte Esterase,Urine 2+ (Negative); Nitrate,Urine Negative (Negative); Protein,Urine Negative (Negative); Specific Gravity, Urine 1.015 (1.005-1.030); Urobilinogen,Urine 0.2 EU/dl (0.2)
[2023-09-14 02:01] LABS: Appearance,Urine Slightly Cloudy (Clear)
[2023-09-14 02:06] LABS: Bacteria,Urine 1+ /lpf
[2023-09-14 02:08] LABS: Barbiturates Screen,Urine Negative ng/ml (<200)
[2023-09-14 02:09] LABS: Amphetamine/Metha Screen,Urine Negative ng/ml (<1000); Benzodiazepines Screen,Urine Negative ng/ml (<200)
[2023-09-14 02:10] LABS: Cocaine Screen,Urine Negative ng/ml (<300); Methadone Screen,Urine Negative ng/ml (<300)
[2023-09-14 02:11] LABS: Cannabinoid Screen,Urine Negative ng/ml (<50)
[2023-09-14 02:12] LABS: Opiate Screen,Urine Negative ng/ml (<300); Phencyclidine Screen,Urine Negative ng/ml (<25)
== END 2023-09-14 02:37 | disposition home or self-care (01) ==
LOC: OBOUT 01:16 → OB 01:18
PROVIDERS: Visit Provider Obstetrics & Gynecology
DX: O36.8190 Decreased fetal movements, unspecified trimester, not applicable or unspecified (principal)
CPT/HCPCS: 59025; 80307; 81001; 87086

== ENCOUNTER 2023-10-19 16:06 | Outpatient (CLI) | payer BC, SELFPAY | END 2023-10-19 23:59 | disposition home or self-care (01) | LOC: LAB.DROPOF 16:06 | PROVIDERS: PCP Obstetrics & Gynecology; Visit Provider Obstetrics & Gynecology | DX: Z34.90 Encounter for supervision of normal pregnancy, unspecified, unspecified trimester (principal); Z3A.19 19 weeks gestation of pregnancy | CPT/HCPCS: 86403 ==

== ENCOUNTER 2023-11-12 01:50 | Inpatient (IN) | payer BC, SELFPAY ==
[2023-11-12] VITALS (8 sets, daily range): BP systolic 117–148; BP diastolic 59–88; PULSE 60–103; RESP 15–17; TEMP 36.4–37; O2SAT 96–100; BMI 31.1; BMI 31.2
[2023-11-12 01:29] LABS: Microscopic, Urine URINE MICROSCOPIC (MICROSCOPIC)
[2023-11-12 01:31] LABS: Blood, Urine Negative (Negative); Glucose,Urine (UA) Negative (Negative); Ketones,Urine 2+ (Negative); Leukocyte Esterase,Urine TRACE (Negative); Nitrate,Urine Negative (Negative); Protein,Urine TRACE (Negative); Specific Gravity, Urine >= 1.030 (1.005-1.030)
[2023-11-12 01:37] LABS: Bilirubin,Urine 1+ (Negative)
[2023-11-12 01:39] LABS: Fetal Membrane Rupture (Rapid) Negative (Negative)
[2023-11-12 01:43] LABS: Barbiturates Screen,Urine Negative ng/ml (<200)
[2023-11-12 01:44] LABS: Amphetamine/Metha Screen,Urine Negative ng/ml (<1000); Benzodiazepines Screen,Urine Negative ng/ml (<200)
[2023-11-12 01:45] LABS: Methadone Screen,Urine Negative ng/ml (<300)
[2023-11-12 01:46] LABS: Cannabinoid Screen,Urine Negative ng/ml (<50); Cocaine Screen,Urine Negative ng/ml (<300)
[2023-11-12 01:47] LABS: Opiate Screen,Urine Negative ng/ml (<300)
[2023-11-12 01:48] LABS: Phencyclidine Screen,Urine Negative ng/ml (<25)
[2023-11-12 01:50] LABS: Appearance,Urine Cloudy (Clear); Color,Urine Dark Yellow (Yellow)
[2023-11-12 01:51] LABS: Bacteria,Urine 1+ /lpf
[2023-11-12 02:26] LABS: Basophils % 0.4 % (0.1-2.0); Eosinophils # 0.1 K/mm3 (0.0-0.4); Eosinophils % 0.9 % (0.1-12.0); Hematocrit 31.7 % (37.0-47.0); Hemoglobin 10.7 g/dL (12.2-16.2); Lymphocytes # 2.5 K/mm3 (0.7-4.5); Lymphocytes % 28.2 % (10-50); Mean Corpuscular HGB Conc 33.9 g/dL (31.8-35.4); Mean Corpuscular Volume 88.5 fl (81-99); Monocytes # 0.4 K/mm3 (0.1-1.0); Monocytes % 4.2 % (1.7-9.3); Neutrophils # 5.8 K/mm3 (1.8-7.8); Neutrophils % 66.3 % (37.0-80.0); Platelet Count 186 K/mm3 (142-424); Red Blood Count 3.58 M/mm3 (4.20-5.40); White Blood Count 8.7 K/mm3 (4.5-13.0)
[2023-11-12 02:32] LABS: Albumin Level 3.7 g/dl (3.5-5.0); Chloride 108 mmol/L (98-107)
[2023-11-12 02:33] LABS: Potassium 3.6 mmoL/L (3.5-5.1); Sodium 135 mmol/L (136-145)
[2023-11-12 02:35] LABS: Blood Urea Nitrogen 3 mg/dl (7-17); Creatinine Clearance Estimated 273 mL/min (50-200); Estimated Glomerular Filt Rate 203 ml/min (>60); GFR (African American) 246 ML/MIN (>60)
[2023-11-12 02:36] LABS: Alanine Aminotransferase 181 U/L (12-78); Albumin/Globulin Ratio 1.1 (1.1-1.8); Alkaline Phosphatase 213 U/L (38-126); Anion Gap 11.6 mEq/L (5-15); Aspartate Amino Transferase 207 U/L (14-36); Bilirubin,Total 0.7 mg/dl (0.2-1.3); Calcium 8.7 mg/dl (8.4-10.2); Carbon Dioxide 19 mmol/L (22.0-30.0); Globulin 3.4 g/dL (1.3-3.2); Glucose 90 mg/dl (74-100); Total Protein,Serum 7.1 g/dl (6.3-8.2)
[2023-11-12 04:56] LABS: Cord Blood PH 7.41 (7.35-7.45)
--- NOTE | 2023-11-12 05:12 | EXP.HP ---
History of Present Illness *Admission Date: 11/12/23 *Reason for visit:: labor *History of present illness: Grace Childress is a 18yo [id number] 39 weeks and 2 days gestation who presented to labor and delivery with suspected ruptured membranes, amnisure negative. She was scheduled for an IOL today. When she was placed on the monitor she had a prolonged decleration to about 130bpm. The recovered. Monitoring was continued and was observed to continue to have an intermittent cat 2 strip with late declerations. Her cervix had only minimally changed from 2cm to 3cm. Decision was made to proceed with delivery. Her has been complicated by being a Cystic fibrosis carrier, FOB unable to be tested. On presentation patient endorsed good movement. B+, antibody negative, rubella immune, hepatitis B negative, hepatitis C negative, RPR negative, HIV negative 1 hour GTT: 137 GBS negative PFSH PFS Disclaimer: The information contained in this section may have been updated after the patient was seen, as this information can be updated by other users. Medical History Family history of ischemic heart disease (IHD) Abnormal electrocardiogram [ECG] [EKG] No significant past medical history Surgical History No history of previous surgery Family History (Updated 11/12/23 @ 02:22 by Phoebe Young RN) Other No significant family history Social History (Updated 11/12/23 @ 02:23 by Phoebe Young RN) Smoking Status: Never smoker second hand exposure: Yes alcohol intake: never substance use type: marijuana current occupational status: unemployed Travel in the last 8 weeks: None household members: family housing: house Review of Systems Review of Systems Review of systems (narrative): Review of Systems Constitutional: Denies fever, chills, and sweats Eyes: Denies vision change/ pain Respiratory: Denies cough and shortness of breath Cardiovascular: Denies chest pain and lightheadedness Gastrointestinal: denies abdominal pain with contractions. Denies nausea, vomiting. Genitourinary: Denies dysuria and incontinence Musculoskeletal: Denies shoulder pain and back pain Neurological: Denies change in speech or headaches Meds Home Medications and Allergies Home Medications ?Medication ?Instructions ?Recorded ?Confirmed ?Type vitamin no.115-iron 29 1 tab PO DAILY 07/20/20 11/12/23 History mg-folic acid 1 mg chewable tablet New Prescriptions to Start Prescriptions: Allergies Allergy/AdvReac Type Severity Reaction Status Date / Time No Known Allergies Allergy Verified 11/09/23 09:17 Exam Data for Last 24 hours Vital signs and Labs for Last 24 Hours: Temp Pulse Resp BP O2 Del Method 98.6 F 103 H 17 124/71 Room Air 11/12/23 01:27 11/12/23 01:27 11/12/23 01:27 11/12/23 01:27 11/12/23 01:27 Laboratory Results - last 24 hr 11/12/23 01:10: Urine Color Dark yellow, Urine Appearance Cloudy, Urine pH 6.0, Ur Specific [place] >= 1.030, Urine Protein Trace, Urine Glucose (UA) Negative, Urine Ketones 2+, Urine Blood Negative, Urine Nitrate Negative, Urine Bilirubin 1+ A, Urine Urobilinogen 1.0, Ur Leukocyte Esterase Trace, Urine RBC None, Urine WBC 5-10, Ur Squamous Epith Cells 5-10, Urine Bacteria 1+, Membrane Rupture Negative, Urine Opiates Screen Negative, Urine Methadone Screen Negative, Ur Barbituates Screen Negative, Ur Phencyclidine Scrn Negative, Ur Amphetamines Screen Negative, U Benzodiazepines Scrn Negative, Urine Cocaine Screen Negative, U Marijuana (THC) Screen Negative 11/12/23 02:15: WBC 8.7, RBC 3.58 L, Hgb 10.7 L, Hct 31.7 L, MCV 88.5, MCH 30.0, MCHC 33.9, RDW 14.0, Plt Count 186, MPV 11.0 H, Neut % (Auto) 66.3, Lymph % (Auto) 28.2, [place] % (Auto) 4.2, Eos % (Auto) 0.9, Baso % (Auto) 0.4, Neut # (Auto) 5.8, Lymph # (Au
--- NOTE | 2023-11-12 05:26 | EXP.OP.NOTE ---
Date of procedure: 11/12/23 Pre-op Diagnosis:: 1. 39 weeks 2days gestation, Johnson 2. Cystic fibrosis carrier 3. Nonreassuring heart tones 4. Remote from delivery 5. GBS negative 6. Rh Positive Post-op Diagnosis:: 1. 39 weeks 2days gestation, Johnson 2. Cystic fibrosis carrier 3. Nonreassuring heart tones 4. Remote from delivery 5. GBS negative 6. Rh Positive Procedure performed:: Primary Delivery Surgeon:: Phoebe Cifuentes DO Film Vault Supervisor(s):: Sadaf Mendieta HUMANE AGENT:: Vince Olson Anesthesia: spinal Estimated blood loss (mL): 700 Operative findings:: 1. Live viable male infant: Nelida. Weight: 7pounds 9ounces. Apgars 8 and 9 at 1 and 5 minutes respectively 2. Normal-appearing fallopian tubes and ovaries bilaterally 3. Arterial cord pH: 7.41 Operative note:: Medications: 2 g of Ancef, 500mg IV Azithromycin, 1g tranexamic acid Summary: Procedure explained in its entirety. The patient was counseled on the risks and benefits of section including bleeding, vascular injury, infection, and injury to the surrounding structures. Hemorrhage requiring life saving blood transfusion resulting in blood born viral infection or allergic reaction was explained and the patient consented to blood transfusion. Possible need for further operative measures prolonging recovery time and hospitalization reviewed to include hysterectomy. Procedure explained in its entirety and patient had no further questions. Consented to procedure. The patient was taken back to the operating room where adequate spinal anesthesia was obtained. Pneumatic compression stockings applied to lower extremities. Above-listed antibiotics were administered for infection prophylaxis. She was placed in the dorsal supine position Urinary catheter was placed and found to be draining clear urine. The patient was prepped and draped in sterile fashion. Anesthesia was tested and and found to be adequate. A Pfannenstiel skin incision was made with the scalpel. Subcutaneous bleeding vessels were cauterized with the bovie. The incision was taken down to the fascia with the bovie. The fascia was knicked in the midline and sharply extended laterally. The superior aspect of the fascia was grasped with Maryjo clamps and the rectus muscle was taken down with the Bovie. The rectus muscle was sharply dissected from the midline with Mayos. This process was repeated inferiorly. The rectus muscles were in the midline, peritoneum was identified and entered bluntly. Jalil manactor was placed and the bladder was noted to be out of the operative field. A bladder flap was created with Metzenbaum scissors and Georgian pickups. The lower uterine segment was easily identified, sharply incised, and entered bluntly with the surgeon's index finger. Incision was then extended in a superior and inferior fashion by blunt separation. Membranes were ruptured revealing meconium stained fluid. The fetus was in cephalic presentation. The head was carefully elevated out of the pelvis. Fundal pressure was applied when head was brought into incision. The infants head was delivered without difficulty. The shoulder and body followed without complication. Delivery occurred at 0442. The mouth and nose were suctioned with a bulb. The umbilical cord was clamped and cut after approximately one minute of delayed cord clamping. was taken to warmer for evaluation by the cork insulator. Cord blood and gas was collected. The placenta was delivered via fundal massage. IV Pitocin was initiated. Inside of the uterus was gently cleared of blood and clots with lap sponge. The hysterotomy was closed with #1 Vicryl in a running locked fashion. It was felt there was >500mL of blood loss and QBL was not yet calculated so decision was made to give TXA. Dr. Mendieta arrived after the first layer of the hysterotomy was closed. There was a small area of bleeding at the left apex that was made hemostatic wi
--- NOTE | 2023-11-12 05:36 | P.PNANES_ITS ---
[facility] Disclaimer: The information contained in this section may have been updated after the patient was seen, as this information can be updated by other users. Medical History Family history of ischemic heart disease (IHD) Abnormal electrocardiogram [ECG] [EKG] No significant past medical history Surgical History No history of previous surgery Family History Other No significant family history Social History Smoking Status: Never smoker second hand exposure: Yes alcohol intake: never substance use type: marijuana current occupational status: unemployed Travel in the last 8 weeks: None household members: family housing: house [facility] Anesthesia Checklist Patient Identification Patient Identification: Arm Band and Verbal (Name & ) Structural Data Admitted From: Inpatient Planned Operative Procedure/s: Primary C/S Consent for Planned Operative Procedure(s) Verified: Yes Verified Documents: Surgical Consent and History and Physical NPO Status Verified Time NPO: 00:00 Chart Verification Results Verified: CBC Additional verifications Patient : Yes Anesthesia Reactions: No Airway Assessment Mallampati Score:: Class II C-Spine Mobility Assessed: Yes TMJ Mobility Assessed: Yes Dentition: Good Dentition Neurological Assessment Level of Consciousness: Awake Hx Seizures: No Numbness or tingling in extremities: No Anesthesia Plan Anesthesia Risk discussed: Yes Anesthesia Plan: Verified ASA Class: II (E) Anesthesia Type: Spinal
--- NOTE | 2023-11-12 12:15 | EXP.ANES.II ---
[facility] Anesthesia Record Part II Anesthesia Record Part II Discharge Time: 06:00 Destination: Obstetric PACU nurse assessment reviewed?: Yes Patient Condition:: Good Anesthesia Complications:: None Swallowing reflex intact?: Yes Airway Patency: Patent Cyanosis?: No Blood Pressure: 134/60 SaO2: 96 Respiratory Rate: 16 Pulse Rate: 85 Temperature: 98.3 F Mental Status: Alert & Oriented Pain level:: 0 Nausea and/or vomitting:: None Intake, IV Amount: 0 Hydration: Adequate
[2023-11-13 05:39] VITALS: BP 118/77; PULSE 83; RESP 16; TEMP 36.7; O2SAT 99
[2023-11-13 06:57] LABS: Basophils % 0.4 % (0.1-2.0); Eosinophils # 0.2 K/mm3 (0.0-0.4); Hematocrit 27.3 % (37.0-47.0); Hemoglobin 8.8 g/dL (12.2-16.2); Lymphocytes # 2.3 K/mm3 (0.7-4.5); Lymphocytes % 24.9 % (10-50); Mean Corpuscular HGB Conc 32.2 g/dL (31.8-35.4); Mean Corpuscular Hemoglobin 29.1 pg (27.0-31.2); Mean Corpuscular Volume 90.6 fl (81-99); Monocytes # 0.5 K/mm3 (0.1-1.0); Monocytes % 5.1 % (1.7-9.3); Neutrophils # 6.3 K/mm3 (1.8-7.8); Neutrophils % 67.6 % (37.0-80.0); Platelet Count 146 K/mm3 (142-424); Red Blood Count 3.01 M/mm3 (4.20-5.40); White Blood Count 9.3 K/mm3 (4.5-13.0)
[2023-11-13 09:00] VITALS: BP 111/71; PULSE 88; RESP 16; TEMP 36.6; O2SAT 98
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
[2023-11-13 12:20] LABS: Rapid Plasma Reagin Ab Titer Non Reactive titer (NonRea<1:1)
--- NOTE | 2023-11-13 17:11 | EXP.PN ---
Subjective *Date: 11/13/23 *Time: 17:11 Interval history: Grace is a G4, P2022 day #1 following a primary delivery at 39wks gestation. Routine delivery and course. She is doing well, sitting up in bed, and pumping this morning. She does feel tearful and very stressed and anxious. She has showered and is passing flatus -Reports pain is well-controlled -Reports she is tolerating p.o. without nausea or vomiting. -Reports her lochia is scant. -She is breast-feeding her male infant -Ambulating, voiding difficulty or dysuria. Denies chest pain shortness of breath or pain in her legs. No further complaints at this time. Exam Data for Last 24 hours Vital signs and Labs for Last 24 Hours: Temp Pulse Resp BP Pulse Ox O2 Del Method 97.8 F 88 16 111/71 98 Room Air 11/13/23 09:00 11/13/23 09:00 11/13/23 09:00 11/13/23 09:00 11/13/23 09:00 11/13/23 09:00 Laboratory Results - last 24 hr 11/12/23 02:15: RPR Titer Non reactive 11/13/23 06:15: WBC 9.3, RBC 3.01 L, Hgb 8.8 L, Hct 27.3 L, MCV 90.6, MCH 29.1, MCHC 32.2, RDW 14.0, Plt Count 146, MPV 11.0 H, Neut % (Auto) 67.6, Lymph % (Auto) 24.9, [place] % (Auto) 5.1, Eos % (Auto) 2.0, Baso % (Auto) 0.4, Neut # (Auto) 6.3, Lymph # (Auto) 2.3, [place] # (Auto) 0.5, Eos # (Auto) 0.2, Baso # (Auto) 0.0 I & O for Last 24 hours: Intake & Output 11/10/23 11/11/23 11/12/23 11/13/23 23:59 23:59 23:59 23:59 Intake Total 0 / 0 Balance 0 / 0 Weight 170 lb 0.01 oz Narrative: General: patient is alert oriented in no acute distress and responds appropriately to questions. Appears to be in minimal pain. Sitting up in the chair and doing well HEENT: NCAT, EOMI, moist mucous membranes, neck supple with full ROM Cardiovascular: RRR +S1/S2, no murmurs or rubs Pulmonary: Clear to auscultation bilaterally, nonlabored breathing, symmetric chest rise Abdominal: Fundus below the umbilicus, firm, and tenderness appropriate for the period. Extremities: trace edema, no tenderness or cyanosis noted Skin: Normal turgor, intact, warm. Negative for erythema, pallor, petechia, or lesions well-healing Pfannenstiel skin incision open to air. No signs of erythema, drainage, or infection. Neurologic: Negative for sensory or motor deficit Psychiatric: Normal affect, normal thought process, good judgment and insight, no depression or anxious mood appreciated. Assessment and Plan *Assessment and plan (1) 39 weeks gestation of : Status: Acute Category: Medical Code(s): Z3A.39 - 39 weeks gestation of (2) Non-reassuring electronic monitoring tracing: Status: Acute Category: Medical Code(s): O36.8390 - Maternal care for abnormalities of the heart rate or rhythm, unspecified trimester, not applicable or unspecified (3) Gallbladder disease: Status: Acute Category: Medical Code(s): K82.9 - Disease of gallbladder, unspecified (4) Depression: Status: Acute Category: Medical Code(s): F32.A - Depression, unspecified (5) delivery delivered: Status: Acute Category: Medical Code(s): O82 - Encounter for delivery without indication (6) Anxiety: Status: Acute Category: Medical Code(s): F41.9 - Anxiety disorder, unspecified (7) Cystic fibrosis carrier: Status: Acute Category: Medical Code(s): Z14.1 - Cystic fibrosis carrier (8) Anemia: Status: Acute Qualifiers: Other causes of anemia: acute posthemorrhagic Anemia type: other cause Qualified Code(s): D62 - Acute posthemorrhagic anemia Category: Medical Code(s): D64.9 - Anemia, unspecified Plan Stable. POD#1 s/p PCS -Doing well. VSS. Serial lochia and fundal checks. -Continue with perineal ice packs for discomfort -Hemoglobin: 10.7--> 8.8 - asymptomatic anemia noted. Vitals st
[2023-11-14 08:03] VITALS: BP 119/65; PULSE 93; RESP 16; TEMP 36.7; O2SAT 99
--- NOTE | 2023-11-14 12:20 | EXP.PN ---
Subjective *Date: 11/14/23 *Time: 12:20 Interval history: Grace is a G4, P2022 day #2 following a primary delivery at 39wks gestation. Routine delivery and course. She is sleeping this morning when i saw her and difficult to arouse. Infant being cared for at nursing station. unable to obtain interval hx as patient is too tired to keep her eyes open. Per nursing pain is contolled, she is tolerating p.o., and her bleeding is appropriate. -She is breast-feeding her male infant Exam Data for Last 24 hours Vital signs and Labs for Last 24 Hours: Temp Pulse Resp BP Pulse Ox O2 Del Method 98.1 F 93 H 16 119/65 99 Room Air 11/14/23 08:03 11/14/23 08:03 11/14/23 08:03 11/14/23 08:03 11/14/23 08:03 11/14/23 08:03 Laboratory Results - last 24 hr 11/12/23 02:15: RPR Titer Non reactive I & O for Last 24 hours: Intake & Output 11/11/23 11/12/23 11/13/23 11/14/23 23:59 23:59 23:59 23:59 Intake Total 0 / 0 Balance 0 / 0 Weight 170 lb 0.01 oz Narrative: General: patient is alert oriented in no acute distress and responds appropriately to questions. Appears to be in minimal pain. Sitting up in the chair and doing well HEENT: NCAT, EOMI, moist mucous membranes, neck supple with full ROM Cardiovascular: RRR +S1/S2, no murmurs or rubs Pulmonary: Clear to auscultation bilaterally, nonlabored breathing, symmetric chest rise Abdominal: Fundus below the umbilicus, firm, and tenderness appropriate for the period. Extremities: trace edema, no tenderness or cyanosis noted Skin: Normal turgor, intact, warm. Negative for erythema, pallor, petechia, or lesions well-healing Pfannenstiel skin incision open to air. No signs of erythema, drainage, or infection. healing well Neurologic: Negative for sensory or motor deficit Psychiatric: Normal affect, normal thought process, good judgment and insight, no depression or anxious mood appreciated. Assessment and Plan *Assessment and plan (1) 39 weeks gestation of : Status: Acute Category: Medical Code(s): Z3A.39 - 39 weeks gestation of (2) Non-reassuring electronic monitoring tracing: Status: Acute Category: Medical Code(s): O36.8390 - Maternal care for abnormalities of the heart rate or rhythm, unspecified trimester, not applicable or unspecified (3) Gallbladder disease: Status: Acute Category: Medical Code(s): K82.9 - Disease of gallbladder, unspecified (4) Depression: Status: Acute Category: Medical Code(s): F32.A - Depression, unspecified (5) delivery delivered: Status: Acute Category: Medical Code(s): O82 - Encounter for delivery without indication (6) Anxiety: Status: Acute Category: Medical Code(s): F41.9 - Anxiety disorder, unspecified (7) Cystic fibrosis carrier: Status: Acute Category: Medical Code(s): Z14.1 - Cystic fibrosis carrier (8) Anemia: Status: Acute Qualifiers: Anemia type: other cause Other causes of anemia: acute posthemorrhagic Qualified Code(s): D62 - Acute posthemorrhagic anemia Category: Medical Code(s): D64.9 - Anemia, unspecified Plan Stable. POD#2 s/p PCS -Doing well. VSS. Serial lochia and fundal checks. -Continue with perineal ice packs for discomfort -Hemoglobin: 10.7--> 8.8 - asymptomatic anemia noted. Vitals stable. Continue monitoring. DC with Fe -B+/antibody negative -, male infant -Desires circumcision, consents signed and risks reviewed -Contraception: undecided -Follow-up 2 weeks for routine visit -Dispo: home in 1-3 days pending mother/infant status behavioral health consulted for pt voiced concerns for depression/ rage. I did discuss with the patient at length throughout the the risks of depre
--- NOTE | 2023-11-14 17:20 | PC.NURSE ---
Addendum entered by Mikaela Waddell RN 11/14/23 18:55: 18:30 - per DCBS worker Angélica Zelaya, pt. okay to discharge home with NB. No prevention plan/safety plan needed, DCBS will follow up at home. Nurse v/u. Original Note: Angélica Young DCBS worker in room.
--- NOTE | 2023-11-14 17:26 | EXP.BH.CONS ---
History of Present Illness *Admission Date: 11/12/23 *Reason for visit:: depression *History of present illness: I was consulted on patient regarding depression. Interviewed in her room. Boyfriend at bedside. -she is alert and oriented -was up burping the baby when I walked in the room She states that this is her 2nd baby. -she has another little boy; he will be 3 years old next month -he will not be in the home -she states that it is very complicated; she doesn't see him -that the baby is currently with the baby's father's sister -that when baby was almost 1 years old; she was having a very hard time -the baby's father didn't have anything to do with her; through her or the after care of baby -she didn't have a job; no money; and was facing being homeless -so she asked if the baby's aunt would keep him for a little bit -she states that she then went to [place] for a while -with her current boyfriend -cause he has an aunt that lives down there and they let them stay down there rent free and was helping them get back up on their feet -she states that while down there the baby's aunt took her to court to get guardianship of her 1st baby -she attended these by zoom; cause she was still in [place] -that the court took custody from her and gave it to the baby's aunt -she states that she hopes she will be able to get him back eventually -when they were in [place]; she found out that she was again with the baby that she just delivered Reports that she moved back up here to [place] in April 2023. -they currently live with her mom; the patient and her boyfriend do -it is them; her mom; step-father; and 2 younger brothers -she states that she is in her old room that was hers in high school -doesn't have to pay rent; just focus on the baby -reports she has a good support at home -her boyfriend works evening shift at [employer] She denies that she has struggled with depression or anidty in the past. -that she has had some since being here -cause the baby was having some heart rate issues -she had to have an emergency -cord was wrapped around his neck -she states that she didn't have any issues with depression or anxiety before this With her 1st baby she was a single mom and did everything by herself. -now she has a supportive partner -so she watches him and this makes her anxious -cause he does things with the baby different than she would -she states that she feels he does it wrong; and she is having to learn to let it go -state that her [employer]IVE put her on zoloft in her 3rd trimester of -she got this from the pharmacy but never took this -cause she wanted to stay as healthy for baby as possible -she states that she might take it now -she is not sure; when she gets home -she is willing to come back and see me to check on her mental health -denies ever having any SI/SH/HI -denies ever engaging in SH -boyfriend reports that he will be home with her for a few days cause he has time off from his job [facility] [facility] Disclaimer: The information contained in this section may have been updated after the patient was seen, as this information can be updated by other users. Medical History (Updated 11/13/23 @ 17:16 by Phoebe Cifuentes DO) Cystic fibrosis carrier Family history of ischemic heart disease (IHD) Abnormal electrocardiogram [ECG] [EKG] No significant past medical history Surgical History No history of previous surgery Family History Other No significant family history Social History Smoking Status: Never smoker second hand exposure: Yes alcohol intake: never substance use type: marijuana current occupational status: unemployed Travel in the last 8 weeks: None household members: family dorinda
--- NOTE | 2023-11-15 09:15 | EXP.DC.SUM ---
General Admission date:: 11/12/23 Discharge date: 11/15/23 HPI HPI HPI: Grace Childress is a 18yo [id number] 39 weeks and 2 days gestation who presented to labor and delivery with suspected ruptured membranes, amnisure negative. She was scheduled for an IOL today. When she was placed on the monitor she had a prolonged decleration to about 130bpm. The infant recovered. Monitoring was continued and infant was observed to continue to have an intermittent cat 2 strip with late declerations. Her cervix had only minimally changed from 2cm to 3cm. Decision was made to proceed with delivery. Her has been complicated by being a Cystic fibrosis carrier, FOB unable to be tested. On presentation patient endorsed good movement. B+, antibody negative, rubella immune, hepatitis B negative, hepatitis C negative, RPR negative, HIV negative 1 hour GTT: 137 GBS negative Hospital Course Hospital Course Hospital Course: Grace is a G4, P2022 day #3 following a primary delivery at 39wks gestation. Routine delivery and course. Patient is caring for her this morning. Reports that she is very very tired and just feels so fatigued and like she cannot wake up and is in a constant drowsy state. She is breast-feeding and supplementing with formula. Patient reports her pain is controlled. She does endorse some crampy abdominal pain. She is tolerating p.o. She is ambulating and voiding without difficulty. Her bleeding is appropriate. It was noted that she scored a 14 on her ED PS. She was consulted with behavioral health. We have struggled with this throughout and she was prescribed Zoloft which she did not start. She will have short interval follow-up. Baby blues and depression reviewed with the patient in detail on multiple days during her admission and prior to discharge. Patient will follow-up if she has any difficulties in the immediate period bonding with baby, or severe anxiety or depression. Patient voiced understanding Patient desires discharge home today. Routine discharge structures reviewed with patient in detail and she voiced understanding. Printed instructions were also reviewed with the patient. She will have short interval follow-up is aware to call the office with any questions or concerns Exam Data for Last 24 hours Vital signs and Labs for Last 24 Hours: Temp Pulse Resp BP Pulse Ox O2 Del Method 98.1 F 93 H 16 119/65 99 Room Air 11/14/23 08:03 11/14/23 08:03 11/14/23 08:03 11/14/23 08:03 11/14/23 08:03 11/14/23 08:03 I & O for Last 24 hours: Intake & Output 11/12/23 11/13/23 11/14/23 11/15/23 23:59 23:59 23:59 23:59 Intake Total 0 / 0 Balance 0 / 0 Weight 170 lb 0.01 oz Narrative: General: patient is alert oriented in no acute distress and responds appropriately to questions. Appears to be in minimal pain. Sitting up in the chair and doing well HEENT: NCAT, EOMI, moist mucous membranes, neck supple with full ROM Cardiovascular: RRR +S1/S2, no murmurs or rubs Pulmonary: Clear to auscultation bilaterally, nonlabored breathing, symmetric chest rise Abdominal: Fundus below the umbilicus, firm, and tenderness appropriate for the period. Extremities: trace edema, no tenderness or cyanosis noted Skin: Normal turgor, intact, warm. Negative for erythema, pallor, petechia, or lesions well-healing Pfannenstiel skin incision open to air. No signs of erythema, drainage, or infection. healing well Neurologic: Negative for sensory or motor deficit Psychiatric: Normal affect, normal thought process, good judgment and insight, no depression or anxious mood appreciated. DS: Diagnosis Discharge Diagnosis (1) Depression: Status: Acute Code(s): F32.A - Depression, unspecified Meds Home Medications and Allergies Home Medications ?Medication ?Instructions ?Recorded ?Confirmed ?Type prenata
== END 2023-11-15 14:33 | disposition home or self-care (01) | DRG 788 ==
LOC: OBOUT 01:51 → OB 01:51
PROVIDERS: Admitting Provider Obstetrics & Gynecology; Visit Provider Obstetrics & Gynecology
PROC: 10D00Z1 Extraction of Products of Conception, Low, Open Approach (ICD-10-PCS; CPT 59514; principal; 2023-11-12 04:30)
DX: O76 Abnormality in fetal heart rate and rhythm complicating labor and delivery (principal); Z3A.39 39 weeks gestation of pregnancy; Z14.1 Cystic fibrosis carrier; Z37.0 Single live birth; O99.344 Other mental disorders complicating childbirth; F32.A Depression, unspecified; O90.6 Postpartum mood disturbance
CPT/HCPCS: 59514; 36415; 59025; 80053; 80307; 81001; 82800; 84112; 85025; 86593; 86850; 94761; C9290; G0283; J0456; J1170; J1885; J2405; J7050; J7120

== ENCOUNTER 2024-06-08 23:19 | Emergency (ER) | payer OTHER, SELFPAY ==
[2024-06-08 23:37] VITALS: BP 149/96; PULSE 100; RESP 20; TEMP 36.9; O2SAT 99; BMI 26.5
[2024-06-08 23:47] LABS: Microscopic, Urine URINE MICROSCOPIC (MICROSCOPIC)
[2024-06-08 23:50] LABS: Bilirubin,Urine Negative (Negative); Blood, Urine LARGE (Negative); Glucose,Urine (UA) Negative (Negative); Ketones,Urine Negative (Negative); Leukocyte Esterase,Urine MODERATE (Negative); Nitrate,Urine Negative (Negative); Protein,Urine 30 (Negative); Specific Gravity, Urine 1.015 (1.005-1.030); Urobilinogen,Urine 0.2 EU/dl (0.2)
[2024-06-08 23:53] LABS: Appearance,Urine Clear (Clear); Color,Urine Amber (Yellow)
[2024-06-08 23:59] LABS: RBC,Urine 50-100 #/hpf (0-3); WBC,Urine 20-50 #/hpf (0-3)
[2024-06-09] LABS: Bacteria,Urine Trace /lpf
--- NOTE | 2024-06-09 00:19 | PC.NURSE ---
Pelvic exam done by MD with RN assistance . Pt tolerated well
[2024-06-09] MEDS: CEFDINIR 300MG CAPSULE 300 MG PO (00:25)
--- NOTE | 2024-06-09 00:28 | HMH.EDGENADL ---
Discharge Plan Disposition Patient Disposition: Home, Self-Care Condition: Good Prescriptions Prescriptions: New cefdinir 300 mg capsule 300 mg PO BID 7 Days Qty: 14 0RF No Action [id number] 1 EACH tablet,chewable 1 tab PO DAILY acetaminophen 500 mg tablet 500 mg PO Q6H PRN (Reason: fever or pain) Qty: 30 3RF ferrous sulfate 325 mg (65 mg iron) tablet,delayed release (DR/EC) 325 mg PO DAILY Qty: 30 3RF sennosides [Senna Lax] 8.6 mg Tablet 8.6 mg PO BIDP PRN (Reason: Constipation) Qty: 60 2RF ibuprofen 800 mg tablet 800 mg PO Q8H PRN (Reason: pain) Qty: 60 2RF oxycodone 5 mg tablet 5 mg PO Q8H PRN (Reason: pain) Qty: 20 0RF simethicone 125 mg tablet 125 mg PO DAILY PRN (Reason: abdominal distention) Qty: 60 2RF Referrals Follow up/Referrals: Phoebe Cifuentes DO [Staff Physician] - See instructions (please see for follow up of hematuria, STD concerns) Lorri Galan APRN [Nurse Practitioner] - See instructions (Patient would like to discuss depression, relationship problems) Provider,Referral, MD [Primary Care Provider] - See instructions Activity Restrictions/Add. Instructions Additional Instructions/Restrictions: You were evaluated in the ER and are appropriate for discharge at this time. Take the prescribed antibiotics as directed, do not skip doses, do not stop taking them early. If your antibiotics need to be changed or if you have to be on additional medications after the other urine studies result, you will receive a phone call. Please make an appointment with Dr. Cifuentes for reevaluation. Also call Lorri Galan office for a counseling appointment. Return to the ER with any new, worsening, or otherwise concerning symptoms. Clinical Impressions Clinical Impression: UTI (urinary tract infection), Hematuria Instructions Patient Instructions: DI for Acute Abdominal Pain Print Language Print Language: Syriac Discharge ED Provider: Nichole Thorne Adult HPI General Chief complaint: Abdominal Pain Stated complaint: abd pain, pain and blood with urination Time Seen by Provider: 06/08/24 23:43 Mode of Arrival: Ambulatory Source of Information: Patient Description of Symptoms (Recalled from ER Triage Doc. by RN): Pt states she has had low abdominal pain today as well as blood in her urine Pt also concerned about STI History of Present Illness HPI narrative: Otherwise healthy 18-year-old female presents to the ER with dysuria, hematuria, urgency, frequency. Patient reports she started having symptoms in the last 24 hours and has noticed blood in her urine so she came to the ER. She thinks it may be a urinary tract infection but also is concerned for possible STD. She states she slept with a lexy approximately 1 month ago and had bumps on her legs in a rash pattern after that. She states this is resolving but she was worried with the blood in her urine it could be related to STD. She has had mild nausea but no other associated symptoms. No fevers, chills, chest pain, difficulty breathing, cough, congestion, vomiting, back pain, or other associated symptoms. Related Data Home Medications ?Medication ?Instructions ?Recorded ?Confirmed vitamin no.115-iron 29 1 tab PO DAILY 07/20/20 11/12/23 mg-folic acid 1 mg chewable tablet Previous Rx's ?Medication ?Instructions ?Recorded acetaminophen 500 mg tablet 500 mg PO Q6H PRN fever or pain 11/15/23 #30 tabs ferrous sulfate 325 mg (65 mg 325 mg PO DAILY #30 tabs 11/15/23 iron) tablet,delayed release ibuprofen 800 mg tablet 800 mg PO Q8H PRN pain #60 tabs 11/15/23 oxycodone 5 mg tablet 5 mg PO Q8H PRN pain #20 tabs 11/15/23 sennosides 8.6 mg tablet (Senna 8.6 mg PO BIDP PRN Constipation 11/15/23 Lax) #60 tabs simethicone 125 mg tablet 125 mg PO DAILY PRN abdominal 11/15/23 distention #60 tabs cefdinir 300 mg capsule 300 mg PO BID 7 days #14 caps 06/09/24 Allergies Allergy/AdvReac Type Severity Reaction Status Date / Time No Known Allergies Allergy Verified 11/09/23 09:17 [facility] Disclaimer: The information contained in this section may have been updated after the patient was seen, as this information can be updated by other users. Medical History (Updated 06/09/24 @ 00:25 by Nichole Thorne MD) Family history of ischemic heart disease (IHD) Abnormal electrocardiogram [ECG] [EKG] No significant past medical history Surgical History No history of previous surgery Family History Other No significant family history Social History Smoking Status: Never smoker second hand exposure: Yes alcohol intake: never substance use type: marijuana current occupational status: unemployed Travel in the last 8 weeks: None household members: family housing: house Have you lived/traveled outside US in past 30 days?: No Contact w/someone who lives/traveled outside US past 30 days?: No Exposure to someone with infectious disease in past 14 days?: No Do you have a fever (greater than 100.4 F or 38 C)?: No Have you tested positive for COVID-19: No Exposed to someone with COVID-19 in past 14 days?: No Do you have a sore throat?: No Do you have a cough?: No Do you have any weakness?: No Do you have any diarrhea?: No Are you experiencing any unusual bleeding?: No Do you have any muscle aches/pain?: No Do you have any abdominal pain?: Yes Are you experiencing loss of taste or smell?: No Other Medical History Have you received the Flu Vaccine for this season: No Have you received the Pneumonia Vaccine: No ROS Obtained: Yes Systems reviewed as appropriate & no additional complaints except as documented Per HPI Physical Exam General General appearance: alert and in no apparent distress Head Head exam: atraumatic and normocephalic Eye Eye exam: Present PERRL and EOMI ENT ENT exam: Present mucous membranes moist Neck Neck exam: Present normal inspection and full ROM Chest Chest inspection: Present symmetric chest wall rise Respiratory Respiratory exam: Present normal lung sounds bilaterally; Absent respiratory distress, wheezes or stridor Cardiovascular Cardiovascular exam: Present regular rate and normal rhythm Abdominal Exam Abdominal exam: Present soft and tenderness (Mild suprapubic); Absent distention, guarding or rebound External exam: Present normal external exam; Absent erythema, tenderness, swelling or lesions Speculum exam: Present normal speculum exam and erythema; Absent vaginal discharge, cervical discharge or vaginal bleeding Bimanual exam: Present normal bimanual exam Extremities Exam Extremities exam: Present full ROM Back Exam Back exam: Absent CVA tenderness (R) or CVA tenderness (L) Neurological Exam Neurological exam: Present alert and oriented X3; Absent motor sensory deficit Psychiatric Psychiatric exam: Present normal affect and normal mood Skin Skin exam: Present warm and dry Medical Decision Making Medical Records Medical records reviewed: Yes I reviewed the patient's medical records. Screening: Per USPSTF and CDC recommendations, given the prevalence of disease in our region, it is our hospital?s policy to screen for HIV and viral Hepatitis for all patients aged 18 and over and those with ongoing risk factors. Corey Inquiry Pt receiving controlled substance: No Vital Signs: 06/08/24 23:37 Temperature 98.4 F Temperature Source Oral Pulse Rate [Right Brachial] 100 H Respiratory Rate 20 Blood Pressure [Right Arm] 149/96 H Blood Pressure Mean [Right Arm] 113 Blood Pressure Source [Right Arm] Automatic Cuff Blood Pressure Position [Right Arm] Sitting 02 Sat by Pulse Oximetry 99 Oxygen Delivery Method Room Air Lab Data Lab Results 06/08/24 23:35: Urine Color Lacy, Urine Appearance Clear, Urine pH 6.0, Ur Specific [place] 1.015, Urine Protein 30, Urine Glucose (UA) Negative, Urine Ketones Negative, Urine Blood Large, Urine Nitrate Negative, Urine Bilirubin Negative, Urine Urobilinogen 0.2, Ur Leukocyte Esterase Moderate, Urine RBC 50-100, Urine WBC 20-50, Ur Squamous Epith Cells None, Urine Bacteria Trace Orders (Tests/Meds): ED MEDICATIONS Discontinued Medications Generic Name Dose Route Start Last Admin Trade Name Freq PRN Reason Stop Dose Admin Cefdinir 300 mg 06/09/24 00:22 06/09/24 00:25 Cefdinir 300mg Capsule PO 06/09/24 00:23 300 mg DAILY ONE Administration ORDERS Category Date Time Status HIV Combo Routine Lab 06/08/24 23:41 Ordered Hepatitis C Ab Qual. W/ RFX Routine Lab 06/08/24 23:41 Ordered Urinalysis and Microscopic Stat Lab 06/08/24 23:35 Completed Urine Chlam/Gono/Trich, PREMA Stat Lab 06/08/24 23:35 Received Urine Culture Stat Micro 06/08/24 23:35 Received Medical Decision Narrative: In summary, this 18-year-old female presents to the emergency department today with concerns of dysuria, hematuria, urgency Frequency. On initial evaluation patient is hemodynamically stable, afebrile, resting comfortably, mild suprapubic tenderness to palpation without rebound or guarding, no evidence of peritonitis, no CVA tenderness, exam was performed demonstrating no lesions, no chancres, no abnormal vaginal discharge, swelling, or irritation. Differential diagnosis includes but is not limited to urinary tract infection, also consider the possibility of STI like gonorrhea, chlamydia, trichomonas though I have lower suspicion for these. I had originally considered the possibility of syphilis and herpes zoster since patient was concerned about rash on her legs but there is no evidence of these and her description of a rash is not consistent with either of those. Based on these concerns, I ordered urinary studies including STI testing. I personally interpreted demonstrates findings of infection including multiple WBCs, RBCs, and bacteria. Nitrate negative. Patient was treated with cefdinir. I had shared decision-making discussion with her about starting empiric treatment for STD versus waiting for the results. She would prefer to wait for results at this time to avoid antibiotic resistance and unnecessary antibiotic treatment. I believe this is reasonable. Patient was offered Azo but states she has this at home. I prescribed cefdinir for outpatient management. Patient reports she has been dealing with depression and would like to see a therapist, she denies suicidal or homicidal ideation. I referred her to Lorri Galan for this purpose. She states she follows with Dr. Cifuentes with OB and I instructed her to follow-up with her closely to review labs and ensure her hematuria resolves. Patient was given instructions on symptomatic management, follow up instructions, and return precautions for the emergency department. Patient indicated understanding and was discharged in stable condition. Critical Care Critical Care Time Critical Care Time: No
[2024-06-09 00:30] VITALS: BP 140/80; PULSE 80; RESP 20; TEMP 36.8; O2SAT 98
[2024-06-10 04:50] LABS: Chlamydia trachomatis Negative (Negative); Neisseria gonorrhoeae Negative (Negative); Trichomonas vaginalis Negative (Negative)
--- NOTE | 2024-06-13 08:09 | PC.NURSE ---
Discussed urine culture with , no new orders
== END 2024-06-09 00:31 | disposition home or self-care (01) ==
PROVIDERS: Emergency Provider Emergency Medicine
DX: N39.0 Urinary tract infection, site not specified (principal); R10.30 Lower abdominal pain, unspecified; R31.9 Hematuria, unspecified; R30.0 Dysuria; R35.0 Frequency of micturition; R11.0 Nausea
CPT/HCPCS: 81001; 87086; 87088; 87186; 87491; 87591; 87661; 99283

== ENCOUNTER 2024-10-20 01:41 | Emergency (ER) | payer OTHER, SELFPAY ==
[2024-10-20 01:50] VITALS: BP 136/95; PULSE 91; RESP 16; TEMP 37.2; O2SAT 99; BMI 26.5
--- OUTSIDE RECORDS SUMMARY | 2024-10-20 01:54 | XMS_ITS | Encounter Summary ---
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 Name Role Phone Unavailable Primary Care Provider Unavailabl e Encounter Details Date Type Department Care Team (Late st Contact Info) Description 12/11/2020 Transcribed Document [facility] Family Medicine [facility] [place] [address] ProviderJimbo MD [address] [place] [address] Social History Tobacco Use Types Packs/Day Years Used Date Smoking Tobacco: Never Assessed Comments Unknown Sex and Gender Information Value Date Recorded Sex Assigned at Female 09/13/2021 5:08 PM CDT Legal Sex Female 5:08 PM CDT Gender Identity Female 09/13/2021 5:08 PM CDT Sexual Orientation Not on file documented as of this encounter Miscellaneous Notes * Cerner Conversion Note - Jimbo ProviderMD - 12/11/2020 8:45 AM CDT Initial Discharge Planning Entered On: 12/11/2020 8:59 EDT Performed On: 12/11/2020 8:45 EDT by ALANNAH ROSAS SW Initial Assessment I Previously Documented Living Environment : No qualifying data available. Living Situation : Home Patient Lives With : Significant other(s), Other: sig. other's parents Is the Patient a Caregiver at Home? : Yes Emergency Contact #1 : Yeni Lamb Emergency Contact #1 Emergency Contact #1 Relationship : mother Enter Doctors Name : Dr. Rojas Does Patient have PCP Listed? : Yes Legal Guardian : No ALANNAH ROSAS SW - 12/11/2020 8:45 EDT Initial Assessment II Sensory and Motor Deficits : None Current Home Treatments and Equipment : None ALANNAH ROSAS SW - 12/11/2020 8:45 EDT Discharge Needs I Anticipated Discharge Date : 12/12/2020 EDT Anticipated Discharge To, CM : Home independently Current Home Treatment/Equipment : Current Home Treatment/Equipment No qualifying data available. Post Acute/Home Treatments : None Documentation Status Complete : Yes ALANNAH ROSAS SW - 12/11/2020 8:45 EDT Discharge Needs II Professional Skilled Services : Professional Skilled Services No qualifying data available. Services and Community Resources : [facility] Children [facility] (WIC), Other: [facility] Needs Assistance with Transportation : No Patient Discharge Goal : Home ALANNAH ROSAS SW - 12/11/2020 8:45 EDT Narrative Note Narrative Note : Met with pt to assess needs/provide support. Pt is 15 year old female who delivered her first child, a male she named Moisés. Pt reports she is currently residing with [facility] and his parents at this time at [address] [place] [address] [address] in [facility]. Prior to that she was living with her mother, Yeni, in [place]. She reports that she has been able to get all she needs for infant's care. She has been struggling with , however has been working with . PAU is familiar with pt as PAU spoke with pt during a visit regarding some anxiety and depression she was having during . During that time, PAU spoke with pts mother about getting pt into counselling and she agreed to do so. Discussed this with pt. She states she has not yet gotten a counselor but still desires this. With pts permission, PAU called and scheduled appoitnment with yamil Gordon for at 1pm. Pt aware and states she has transportation to this. pt states she is currently in the [facility] program and has WIC in place. She Plans to use Dr. solomon for pediatricain. She states she has good support. She denies any other needs at this time. km ALANNAH ROSASPAU - 12/11/2020 9:16 EDT documented in this encounter Plan of Treatment Not on file documented as of this encounter Visit Diagnoses Not on filedocumented in this encounter
--- OUTSIDE RECORDS SUMMARY | 2024-10-20 01:54 | XMS_ITS | Encounter Summary ---
Author Organization [employer] ([place], [place], [place], [place]) Address [address] [place] [address] Care Team Providers Care Plasma Center Nurse Name Role Phone Unavailable Primary Care Provider Unavailabl e Encounter Details Date Type Department Care Team (Late st Contact Info) Description 12/09/2020 Transcribed Document [facility] [place] [facility] [place] [address] ProviderJimbo MD [facility] [place] [address] Social History Tobacco Use Types Packs/Day Years Used Date Smoking Tobacco: Never Assessed Comments Unknown Sex and Gender Information Value Date Recorded Sex Assigned at Female 09/13/2021 5:08 PM CDT Legal Sex Female 5:08 PM CDT Gender Identity Female 09/13/2021 5:08 PM CDT Sexual Orientation Not on file documented as of this encounter Miscellaneous Notes * Cerkendall Conversion Note - Jimbo ProviderMD - 12/09/2020 9:24 AM CDT Patient: GRACE ARDON Age: 15 years Sex: Female : 2005 Associated Diagnoses: None Author: LAURITA SMART MD-LASER CUTTER Preprocedure diagnosis: 1. 15-year-old 1 at 40-0/7 weeks gestational age in active spontaneous labor 2. Teenage Postprocedure diagnosis: Same Procedure: nonstress test Findings: 120/reactive/no decels/moderate variability [place]: Contractions every 2-5 minutes Plan: Admit for labor documented in this encounter Plan of Treatment Not on file documented as of this encounter Visit Diagnoses Not on filedocumented in this encounter
--- OUTSIDE RECORDS SUMMARY | 2024-10-20 01:54 | XMS_ITS | Encounter Summary ---
Author Organization [employer] ([place], [place], [place], [place]) Address [address] [place] [address] Care Team Providers Care Commercial Loan Processor Name Role Phone Unavailable Primary Care Provider Unavailabl e Encounter Details Date Type Department Care Team (Late st Contact Info) Description 11/28/[address] [facility] [place] [facility] [place] [address] ProviderJimbo MD [address] [place] [address] Social History Tobacco Use Types [...] Cerner Conversion Note - Jimbo ProviderMD - 11/28/2020 12:02 AM CDT [place] [id number] GRACE ARDON :2005 Visit Time:11/27/2020 Your Visit Summary Your Care Team Admitting Physician - SULTANA ROJAS, DO Attending Physician - SULTANA ROJAS, DO Primary Care Physician - SULTANA ROJAS, DO Referring Physician - SULTANA ROJAS, DO Your Diagnosis 38 weeks gestation of Encounter for supervision of normal first , unspecified trimester, Encounter for supervision of normal first , unspecified trimester False labor after 37 weeks of gestation without delivery Supervision of normal first teen in third trimester Vaginal discharge during in third trimester These Are Your Goals No qualifying data available. Discharge Vitals Temperature 36.8 ??C Respiratory Rate 16 Blood Pressure 126/82 What to do next Instructions From Your Care Team Discharge Activity: Discharge Activity: Rest and relax today Diet: Discharge Diet: Drink 8-10 glasses water/day Follow-Up Appointments Follow Up with SULTANA ROJAS When Within 3 to 5 days Comments Keep your scheduled office appointment this week. Call Dr Rojas for regular contractions every 5 minutes, any leaking of water, bleeding, abdominal pain, uterine pain, fever or decreased movement. Where: [address] [id number]- [employer] (1) Medications What How Much When Instructions Next Dose multivitamin, (PNV ) Every Day Take your medications faithfully. Do NOT skip medication. Do NOT stop taking medications without the direction of a physician. Carry a list of your medications with you at all times, and take this medication list with you to your first follow up visit. Report any side effects. Avoid herbal remedies unless discussed with your physician. As part of your treatment plan, your physician may have prescribed a limited course of a controlled substance. This medication may be given to help people with moderate or severe pain or for other medical conditions, but there are risks involved with treatment. Common side effects may include nausea, constipation, drowsiness, sweating, itching, dry mouth, and rash. More serious side effects may include cognitive and motor impairment, like problems with thinking, concentrating, alertness, and movement (e.g. slowed reflexes), and driving and operating heavy machinery can be dangerous. It is important for you to talk to your physician if you have these side effects or questions. These controlled substances can produce physical dependence and be habit-forming if taken for an extended period of time, which means that the body has gotten used to them and may experience withdrawal symptoms if they are abruptly stopped. Withdrawal symptoms can include runny nose, sweating, goose bumps, diarrhea, abdominal cramping, rapid heartbeat, difficulty sleeping, and nervousness. Please dispose of unused and medications per your retail pharmacy guidance. Allergies No Known Allergies No Known Medication Allergies Immunizations This Visit No Immunizations [employer] Third Trimester of The third trimester of is from week 28 through week 40 (months 7 through 9). This trimester is when your unborn baby (fetus) is growing very fast. At the end of the ninth month, the unborn baby is about 20 inches long. It weighs about 6???10 pounds. Body changes during your third trimester During the third trimester, your body will continue to go through many changes. The changes vary from woman to woman. Physical changes ??? Your weight will continue to increase. You may gain 25???35 pounds (11???16 kg) by the end of the . ??? You may start to get stretch troncoso on your hips, belly (abdomen), and breasts. ??? Your breasts will continue to grow and get more tender. ??? Your hair may get thicker or thinner, or it may have a different texture. Your hair will likely return to normal after your baby is born. ??? Your belly button may stick out. ??? You may notice more swelling in your hands, face, or ankles. Health changes ??? You may start to have or continue to have heartburn. ??? You may get or continue to have trouble pooping (constipation). ??? You may get hemorrhoids. These are swollen veins in the butt that can itch or get painful. ??? You may begin to have swollen veins (varicose veins) in your legs. ??? You may have more body aches in the pelvis, back, or thighs. ??? You may have more tingling or numbness in your hands, arms, and legs. The skin on your belly may also feel numb. ??? You may feel short of breath as your womb (uterus) gets bigger. Other changes ??? You may pee (urinate) more often. ??? You may have more problems sleeping. ??? You may notice the fetus dropping, or moving lower in your belly. ??? You may have more fluid coming from your vagina. ??? Your joints may feel loose, and you may have pain around your pelvic bone. What to expect at visits You will see your doctor every 2 weeks until week 36. After week 36, you will see your doctor every week. During these visits, your doctor will: ??? Do a physical exam. This includes checking: ? Your weight. ? The baby's heartbeat. ? Your cervix, if you are near your due date. ??? Do tests, such as: ? Blood tests. ? Group B streptococcus test. ? A nonstress test (NST). The NST checks the health of your baby to make sure there are no signs of problems. ??? Ask you questions about your health, your , and your plan. What are the signs of labor? If you have any of these signs, call your doctor right away, even if it is before your due date. ??? Cramps in the belly. ??? Regular tightenings or contractions. These contractions may start at 10 minutes apart and get stronger and more frequent with time. ??? Contractions that start on the top of the womb and spread down to the lower belly and the back. ??? More pressure in the pelvis and dull pain in the lower back. ??? A watery or bloody mucus that comes from the vagina. ??? Water breaking. This could be a slow trickle or a gush. Let your doctor know if it has a color or strange odor. What is false labor? False labor is a condition in which you feel small, irregular contractions that usually go away with rest, changing position, or drinking water. Contractions may last for hours, days, or even weeks before true labor sets in. See your doctor if these contractions: ??? Come at regular periods of time. ??? Get stronger. ??? Get painful. Follow these instructions at home: Medicines ??? Take [id number] and prescription medicines only as told by your doctor. Some medicines are safe and some medicines are not safe during . ??? Take a vitamin that contains at least 600 micrograms (mcg) of folic acid. Eating and drinking ??? Eat healthy meals that include: ? Fresh fruits and vegetables. ? Whole grains. ? Good sources of protein, such as meat, eggs, or tofu. ? Low-fat dairy products. ??? Avoid raw meat and uncooked cheese. ??? If you do not get enough calcium from the food you eat, talk to your doctor about taking a daily calcium supplement. ??? Eat 4 or 5 small meals rather than 3 large meals a day. ??? You may need to take these actions to prevent or treat trouble pooping: ? Drink enough fluids to keep your pee (urine) pale yellow. ? Take iqzq-csu-oqjuqvf or prescription medicines. ? Eat foods that are high in fiber. These include beans, whole grains, and fresh fruits and vegetables. ? Limit foods that are high in fat and sugar. These include fried or sweet foods. Activity ??? Exercise only as told by your doctor. Stop exercising if you start to have cramps in your womb. ??? Avoid heavy lifting. ??? Do not exercise if it is too hot or too humid, or if you are in a place of great height (high altitude). ??? Wear low-heeled shoes. Sit and stand up straight. ??? You may continue to have sex unless your doctor tells you not to. Relieving pain and discomfort ??? Take breaks often, and rest with your legs raised (elevated) if you have leg cramps or low back pain. ??? Take warm water baths (sitz baths) to soothe pain or discomfort caused by hemorrhoids. Use hemorrhoid cream if your doctor approves. ??? Wear a good support bra if your breasts are tender. ??? If you develop bulging, swollen veins in your legs: ? Wear support hose or compression stockings as told by your doctor. ? Raise your feet for 15 minutes, 3???4 times a day. ? Limit salt in your food. care ??? Write down your questions. Take them to your visits. ??? Keep all your visits as told by your doctor. This is important. Safety ??? Do not travel far distances unless you must, and only if your doctor says it is okay. ??? Do not use hot tubs, steam rooms, or saunas. ??? Do not drink alcohol. ??? Do not cross your legs for long periods of time. ??? Do not douche or use tampons or scented sanitary pads. ??? Wear your seat belt at all times when driving. ??? Talk to your doctor if you are concerned about domestic abuse. Preparing for your baby's arrival To prepare for the arrival of your baby: ??? Take classes. ??? Visit the hospital and tour the maternity area. ??? Buy a rear-facing car seat. Learn how to install it in your car. ??? Prepare the baby's room. Take out all pillows and stuffed animals from the baby's crib. These items can prevent the baby from breathing well. General instructions ??? Avoid cat litter boxes and soil used by cats. These carry germs that can cause defects in the baby and can cause a loss of your baby (miscarriage) or stillbirth. ??? Do not use any products that contain nicotine or tobacco, such as cigarettes, e-cigarettes, and chewing tobacco. If you need help quitting, ask your doctor. You may get counseling or other support to help you quit. ??? Do not use herbal medicines, street drugs, or medicines that were not given by your doctor. Chemicals in these products can affect your baby. Where to find more information ??? [place] Association: americanpregnancy.org Contact a doctor if: ??? You have a fever. ??? You have mild cramps or pressure in your lower belly. ??? You have a nagging pain in your belly area. ??? You vomit, or you have watery poop (diarrhea). ??? You have bad smelling fluid coming from your vagina. ??? You have pain when you pee, or your pee smells bad. ??? You have a headache that does not go away when you take medicine. ??? You have changes in how you see, or you see spots in front of your eyes. Get help right away if: ??? Your water breaks. ??? You have regular contractions that are less than 5 minutes apart. ??? You are spotting or bleeding from your vagina. ??? You have very bad belly cramps or pain. ??? You have trouble breathing. ??? You have chest pain. ??? You have not felt the baby move as told by your doctor. Summary ??? The third trimester is from week 28 through week 40 (months 7 through 9). This is the time when your unborn baby is growing very fast. ??? During this time, your discomfort may increase as you gain weight and as your baby grows. ??? Get ready for the arrival of your baby by taking classes, getting all the baby items ready, and preparing the baby's room. ??? Get help right away if you are bleeding from your vagina, you have chest pain and trouble breathing, or you have not felt your baby move as told by your doctor. This information is not intended to replace advice given to you by your health care provider. Make sure you discuss any questions you have with your health care provider. Document Revised: 11/25/2019 Document Reviewed: 11/25/2019 [employer]So Protect Me Patient Education ?? 2020 DGTS. Emergency Awareness and Preventative Care STROKE is an EMERGENCY Every Minute Counts Act FAST and Check for these signs: FACE Does the face look uneven? ARM Does one arm drift down? SPEECH Does their speech sound strange? TIME Call at any sign of stroke Stroke Risk Factors Atrial Fibrillation (irregular heartbeat) Diabetes Family history of stroke Heart Disease Heavy alcohol use High Blood Pressure High Cholesterol Physical inactivity and obesity Smoking Cigarette Smoking The facts are clear, cigarette smoking will shorten your life. Smoking can cause many illnesses along the way. As a healthcare provider, we recommend that you stop smoking. Assistance with quitting is available by contacting 0-984-PJTW-NOW. This is a free resource providing counseling, support, and referral. Or you may contact your personal physician. National Suicide Prevention Lifeline: The National Suicide Prevention Lifeline is a national network of local crisis centers that provides free and confidential emotional support to people in suicidal crisis or emotional distress 24 hours a day, 7 days a week. Don't Wait! Stop a Heart Attack Before it Starts What is a heart attack? A heart attack is damage or to a part of the heart from severely decreased or lack of blood flow to the heart. Over time, arteries can become narrow from the buildup of fat and cholesterol, which is called plaque. The plaque can rupture causing a blood clot to form. When the blood clot forms, the artery can become severely narrowed or completely blocked, causing a heart attack. Heart attack is the leading cause of in the [place]. 85% of muscle damage occurs within the first 2 hours. Delay in the recognition of heart attack symptoms increases the chances of . Know the early symptoms of a heart attack: Nausea Feeling of fullness in chest Jaw Pain Pain that travels down one or both arms Fatigue/being tired Anxiety Back Pain Chest pressure, squeezing, or discomfort Shortness of breath Sweating, or a cold sweat Feeling of impending doom There are unusual signs of a heart attack, too! Women, the elderly, and diabetics may present with atypical symptoms: Fainting/dizziness Weakness Confusion Risk Factors for a Heart Attack Some heart disease risk factors, such as age and family history, cannot be changed. Others, like smoking and lack of exercise, can be changed. Smoking High Cholesterol High Blood Pressure Family History Obesity Age Gender (Males are at higher risk) Lack of Exercise Diabetes Diet Stress Excessive Alcohol Intake If you or someone you know is experiencing the signs and symptoms of a heart attack, DON???T DELAY. Call immediately and seek help. If someone collapses, perform CPR! Do not attempt to drive if you are having symptoms of heart attack. Hands-Only CPR Why Hands-Only CPR? Hands-Only CPR has been shown to be as effective as conventional CPR for cardiac arrests that occur outside of a hospital. Survival depends on immediately receiving CPR from someone nearby. How do you perform Hands-Only CPR? There are two easy steps: Call if you see a teen or adult collapse Push hard and fast in the center of the chest at a beat of 100 beats per minute. Save a life! 4 WAYS TO GET AHEAD OF SEPSIS SEPSIS is a MEDICAL EMERGENCY. Time matters! Infections put you and your family at risk for a life-threatening condition called sepsis. Sepsis is the body's extreme response to an infection. It is life-threatening, and without timely treatment, sepsis can rapidly lead to tissue damage, organ failure, and . Sepsis happens when an infection you already have-in your skin, lungs, urinary tract or somewhere else-triggers a chain reaction throughout your body. 1 PREVENT INFECTIONS Take good care of chronic conditions. Talk to your doctor about getting the recommended vaccines. 2 PRACTICE GOOD HYGIENE Wash your hands frequently. Keep cuts or open sores clean and covered until they are healed. 3 KNOW THE SYMPTOMS Confusion or disorientation Shortness of breath High heart rate Fever, shivering, or feeling very cold Extreme pain or discomfort Clammy or sweaty skin 4 ACT FAST Get medical care IMMEDIATELY if you suspect sepsis or if you have an infection that is not getting better or is getting worse. To learn more about sepsis and how to prevent infections, visit www.cdc.gov/sepsis. Test Results Laboratory or Other Results This Visit (last charted value for your 11/27/2020 visit) Urinalysis 11/27/2020 10:58 PM Ur RBC: None Seen Urine Nitrite: Negative Urine Leukocyte Esterase: Small Urine Appearance: Clear Urine Glucose Dipstick: Negative Urine Blood Dipstick: Negative Urine Urobilinogen Dipstick: 1.0 EU/dL -- Normal range between ( 0.2 and 1.0 ) Urine Protein Dipstick: Negative Ur Bacteria: Trace Ur Squamous Epithelial Cells: 2-5 /HPF Urine Color: Yellow Ur WBC: 2-5 /HPF Urine Ketones Dipstick: Negative Ur Mucous: Trace Urine pH Dipstick: 6.0 -- Normal range between ( 6.0 and 8.0 ) Urine Bilirubin Dipstick: Negative Urine Specific [place]: 1.015 -- Normal range between ( 1.005 and 1.030 ) Urine Type.: U CleanCatch Toxicology 11/27/2020 10:58 PM UDS Amp: Negative UDS Shaniqua: Negative UDS Benzo: Negative UDS Taya: Negative UDS Meth: Negative UDS Opi: Negative UDS Oxy: Negative UDS PCP: Negative UDS TCA: Negative UDS THC: Negative Buprenorphine Screen, Urine: Negative Heroin Metab (6AM) by LC-MS/MS, Urine: Negative SpGravity, Urine: 1.015 Propoxyphene, Urine: Negative UDS pH: 6.4 UDS Creatinine, Toxicology: 70.4 mg/dL Maternal Screening 11/27/2020 10:58 PM Amniotic Fluid ROM: Negative Patient Name:EVIE ARDONKenia JAIME I have received and understand this information and was given the opportunity to ask questions. Patient/Wafer Cutter Name: Patient/Wafer Cutter Signature: Relationship to Patient: Clinician/Hospital Wafer Cutter Signature: Date: Electronically signed by Clyde, [facility] Conversion Flame Channeler Charlotte at 07/03/2022 6:23 PM CDT documented in this encounter Plan of Treatment Not on file documented as of this encounter Visit Diagnoses Not on filedocumented in this encounter
--- OUTSIDE RECORDS SUMMARY | 2024-10-20 01:54 | XMS_ITS | Encounter Summary ---
Author Organization [employer] ([place], [place], [place], [place]) Address [address] [place] [address] Care Team Providers Care Volcanologist Name Role Phone Unavailable Primary Care Provider Unavailabl e Encounter Details Date Type Department Care Team (Late st Contact Info) Description 12/09/[address] [facility] [place] [facility] [place] [address] ProviderJimbo MD [facility] [place] [address] Social History Tobacco Use Types [...] Cerner Conversion Note - Jimbo ProviderMD - 12/09/2020 6:53 AM CDT Admission Data, OB Entered On: 12/09/2020 7:00 EDT Performed On: 12/09/2020 6:53 EDT by Rosi Barnhart, Nurse RN Advance Directive Patient has Advance Directive *Q : No, patient refuses Advance Directive information Rosi Barnhart Nurse RN - 12/09/2020 6:53 EDT Height and Weight Height Source : Measured Height Entry Format : Gazelle Height, Feet : 5 ft(Converted to: 152 cm, 60 Inch) Clinical Height : 157.48 cm Height, Inches : 2 Inch(Converted to: 0 ft 2 Inch, 5.08 cm) Weight Source : Standing scale Weight Entry Format : Gazelle Weight, Pounds : 160 lb Clinical Dosing Weight : 72.73 kg Body Surface Area (BSA) : 1.74 m2 Body Mass Index : 29.3 kg/m2 (HI) [place] Body Weight (IBW) : 49.73 kg Rosi Barnhart, Nurse RN - 12/09/2020 6:53 EDT Health Histories Smoking Status : Never (less than 100 in lifetime; none in last 30 days) Smokeless Tobacco Status : Never Rosi Barnhart, Nurse RN - 12/09/2020 6:53 EDT Social History (As Of: 12/09/2020 07:00:53 EDT) Anemia Management Care Prior to 32 wks? : Prior to 32 wks Received Iron Transufsion : No Rosi Barnhart Nurse RN - 12/09/2020 6:53 EDT Gestational Age Gestational Age Person Gestational Age At : 40 weeks Method : Comment : Tetanus Immunization Status Previous Tetanus Immunizations : No qualifying data available. Tetanus Immunization : Less than 5 years Rosi Barnhart Nurse RN - 12/09/2020 6:53 EDT Influenza Vaccine Asmt, Adult Previous Vaccines from Immunization Schedule : No qualifying data available. Influenza Immunization, Current Season : Outside of influenza season Rosi Barnhart, Nurse RN - 12/09/2020 6:53 EDT Pneumococcal Vaccine Previous Vaccines from Immunization Schedule : No qualifying data available. Pneumonia Immunization Received : No Pneumococcal Risk Assessment < Age 65 : None Rosi Barnhart Nurse RN - 12/09/2020 6:53 EDT Order Details Transport Mode Order Detail : Ambulatory Isolation Precautions Order Detail : Standard Precautions Order Detail : 1 IV Order Detail : 0 Oxygen Order Detail : 0 Nurse Collect Order Detail : 0 Lift/Transfer : Independent Central Line Order Detail : No Room Service : Appropriate Arterial Line : No Patient Needs Meds Crushed/Liquid : No Rosi Barnhart, Nurse RN - 12/09/2020 6:53 EDT Vital Measurements Temperature Source : Oral Temperature Mode : Fahrenheit Temperature, Fahrenheit : 97.8 Deg F Clinical Temperature, C : 36.6 Deg C Pulse Method : Non-Invasive BP Device Pulse Source : Apical Peripheral Pulse Rate : 75 bpm Pulse Rhythm : Regular Respiratory Rate : 18 Breaths/Min Blood Pressure Location : Arm, right upper Blood Pressure Source : Non-Invasive BP Device Blood Pressure Position : Sitting Systolic Blood Pressure : 128 mmHg Diastolic Blood Pressure : 81 mmHg Rosi Barnhart Nurse RN - 12/09/2020 6:53 EDT Infectious Disease History Does patient have symptoms of COVID-19? : No Has the Patient Been Tested for COVID-19 in the last 14 days? : No, Patient stated Does the Patient state known exposure to a COVID-19 positive case in the last 14 days? : No Patient Vaccinated for COVID-19 : Not vaccinated Does Patient want a COVID-19 Vaccine? : No Rosi Barnhart, Nurse RN - 12/09/2020 6:53 EDT Infectious Disease Risk Screening Grid Cough < 2 wks of unknown origin : NO Cough > 2 weeks : NO Blood in Sputum : NO Fever or self-reported Fever : Yes Rash of unknown origin : NO Headache : NO Stiff neck : NO Night Sweats : NO Unexplained Weight Loss : NO Diarrhea (3 episode per day) : NO Rosi Barnhart, Nurse RN - 12/09/2020 6:53 EDT Physical contact outside [place] in the last 30 days : No Hospitalized in Foreign Country : No Infectious Disease History : None INF Disease TB Screening Calc : 1 INF Disease Recent Travel Calc : 0 Rosi Barnhart, Nurse RN - 12/09/2020 6:53 EDT [place] Suicide Severity Rating Scale (C-SSRS) CSSRS Past Month Wish to be : No CSSRS Past Month Suicidal Thoughts : No CSSRS Lifetime Suicide Behavior : No Suicide Severity Rating Score : 0 Suicide Severity Rating : No Additional Care Required at this time Rosi Barnhart Nurse RN - 12/09/2020 6:53 EDT documented in this encounter Plan of Treatment Not on file documented as of this encounter Visit Diagnoses Not on filedocumented in this encounter
--- OUTSIDE RECORDS SUMMARY | 2024-10-20 01:54 | XMS_ITS | Encounter Summary ---
Author Organization [employer] ([place], [place], [place], [place]) Address [address] [place] [address] Care Team Providers Care Clinical Business Analyst Name Role Phone Unavailable Primary Care Provider Unavailabl e Encounter Details Date Type Department Care Team (Late st Contact Info) Description 12/11/2020 Transcribed Document [facility] [place] [facility] [place] [address] ProviderJimbo MD [address] [place] [address] Social History Tobacco Use Types Packs/Day [...] Conversion Note - Jimbo ProviderMD - 12/11/2020 11:58 AM CDT Patient: GRACE CHILDRESS Age: 15 Years Sex: Female : 2005 Admit Date 12/09/2020 06:16 Discharge Date No Discharge Date on Record Primary Care Provider BETHANY RUELAS PRIM DR Discharge Diagnosis (spontaneous vaginal delivery) 12/09/2020 O80 ICD-10-CM High risk teen in third trimester 12/09/2020 O09.893 ICD-10-CM Procedures vaginal delivery Reason for Hospitalization childbirth Hospital Course as expected Vital Signs VSS, afebrile Physical Exam FF at u-1, lochia small, perineum intact Discharge Disposition Home Discharge Follow Up SULTANA DE ANDA - Within 6 weeks Discharge Medications (1) Active PNV , Oral, Daily Code Status Start: 12/09/20 20:20:00 EDT, Full Code, Continuous Order Condition on Discharge baby with mom Consulting Physicians No Consulting Physician on Record. Current Diet Order Diet, Adult - Ordered -- Start: 12/09/20 20:20:00 EDT, Regular Diet, Isolation: Standard Precautions Pending Labs No Labs on Record Time Spent on Discharge 15 minutes documented in this encounter Plan of Treatment Not on file documented as of this encounter Visit Diagnoses Not on filedocumented in this encounter
--- OUTSIDE RECORDS SUMMARY | 2024-10-20 01:54 | XMS_ITS | Encounter Summary ---
Author Organization [employer] ([place], [place], [place], [place]) Address [address] [place] [address] Care Team Providers Care Camp Cook Name Role Phone Unavailable Primary Care Provider Unavailabl e Encounter Details Date Type Department Care Team (Late st Contact Info) Description 12/09/[address] [facility] [place] [facility] [place] [address] ProviderJimbo MD [address] [place] [address] Social History Tobacco Use Types Packs/Day [...] Conversion Note - Jimbo ProviderMD - 12/09/2020 7:58 PM CDT Patient: GRACE CHILDRESS Age: 15 Years Sex: Female : 2005 Admit Date 12/09/2020 06:16 DELIVERY NOTE PREOPERATIVE DIAGNOSIS(ES): 15 yo G1 at 40 0/7, depression, labor POSTOPERATIVE DIAGNOSIS(ES): Same PROCEDURE: Spontaneous vaginal delivery. SURGEON: Dr. Milena Rojas ANESTHESIA: None COMPLICATIONS: None apparent. ESTIMATED BLOOD LOSS: 300 INDICATIONS: Labor SPECIMENS: None. FINDINGS: 1. Male infant at 1924, Apgars of 8,9 at 1, 5 minutes respectively. weight 3426 g. 2. An intact placenta that was disposed of. 3. Lacerations: abrasions-right labial and left sulcal that were not repaired at the patient's request PROCEDURE IN DETAIL: The patient did present to Labor and Delivery triage in spontaneous labor. She did have artificial rupture of membranes at 1252 with clear fluid. She proceeded to complete dilation and at 1924 delivered a live male over an intact perineum. Apgars 8, 9. weight 3426 g. Nuchal and body cord was noted, nuchal was double clamped and cut on the perineum. Cord blood was obtained and sent to the lab for analysis. The placenta did deliver at 1927 with trailing membranes and a three-vessel cord that was disposed of. An exam did reveal abrasions-left sulcal and right labial. The patient declined repair, but they were hemostatic. Please note that IV Pitocin was started following delivery of the placenta. No repair necessary for abrasions. The patient and her did remain in her room in stable condition. documented in this encounter Plan of Treatment Not on file documented as of this encounter Visit Diagnoses Not on filedocumented in this encounter
--- OUTSIDE RECORDS SUMMARY | 2024-10-20 01:54 | XMS_ITS | Encounter Summary ---
Author Organization [employer] ([place], [place], [place], [place]) Address [address] [place] [address] Care Team Providers Care Cad Developer Name Role Phone Unavailable Primary Care Provider Unavailabl e Encounter Details Date Type Department Care Team (Late st Contact Info) Description 12/08/2020 Transcribed Document [facility] [place] [facility] [place] [address] ProviderJimbo MD [address] [place], [place] [id number] Social History Tobacco Use Types Packs/Day Years Used Date Smoking Tobacco: Never Assessed Comments Unknown Sex and Gender Information Value Date Recorded Sex Assigned at Female 09/13/2021 5:08 PM CDT Legal Sex Female 5:08 PM CDT Gender Identity Female 09/13/2021 5:08 PM CDT Sexual Orientation Not on file documented as of this encounter Miscellaneous Notes * Cerner Conversion Note - Historical ProviderMD - 12/08/2020 4:12 AM CDT Stroke/Warfarin Instructions Entered On: 12/08/2020 4:12 EDT Performed On: 12/08/2020 4:12 EDT by Cassia Nava Stroke/Warfarin Instructions Stroke/TIA Discharge Ins : N/A Warfarin Discharge Ins : N/A Cassia Nava - 12/08/2020 4:12 EDT documented in this encounter Plan of Treatment Not on file documented as of this encounter Visit Diagnoses Not on filedocumented in this encounter
--- OUTSIDE RECORDS SUMMARY | 2024-10-20 01:54 | XMS_ITS | Encounter Summary ---
Author Organization [employer] ([place], [place], [place], [place]) Address [address] [place] [address] Care Team Providers Care Conference Translator Name Role Phone Unavailable Primary Care Provider Unavailabl e Encounter Details Date Type Department Care Team (Late st Contact Info) Description 12/08/2020 Transcribed Document [facility] [place] [facility] [place] [address] ProviderJimbo MD [address] [place] [address] Social History Tobacco Use Types [...] Cerner Conversion Note - Jimbo ProviderMD - 12/08/2020 4:15 AM CDT [place] [id number] GRACE ARDON :2005 Visit Time:12/07/2020 Your Visit Summary Your Care Team Admitting Physician - SULTANA ROJAS, Attending Physician - SULTANA ROJAS, DO Primary Care Physician - BETHANY RUELAS DR Referring Physician - JESSENIA, SELF REFERRED Your Diagnosis 39 weeks gestation of False labor after 37 weeks of gestation without delivery Supervision of normal first teen in third trimester These Are Your Goals No qualifying data available. Discharge Vitals Temperature 36.8 ??C Respiratory Rate 16 Blood Pressure 117/60 What to do next Instructions From Your Care Team Discharge Activity: Discharge Activity: Rest and relax today Diet: Discharge Diet: Drink 8-10 glasses water/day Follow-Up Appointments Follow Up with SULTANA ROJAS When Within 1 day Comments Keep your office appointment today at 2:45. Call Dr Rojas or return for regular contractions every 5 minutes, leaking water, bleeding, abdominal pain, uterine pain, fever or decreased movement. Where: [address] [facility] (1) Medications What How Much When Instructions [...] This Visit No Immunizations Found Education Materials Signs and Symptoms of Labor Labor is your body's natural process of moving your baby, placenta, and umbilical cord out of your uterus. The process of labor usually starts when your baby is full-term, between 37 and 40 weeks of . How will I know when I am close to going into labor? As your body prepares for labor and the of your baby, you may notice the following symptoms in the weeks and days before true labor starts: ??? Having a strong desire to get your home ready to receive your new baby. This is called nesting. Nesting may be a sign that labor is approaching, and it may occur several weeks before . Nesting may involve cleaning and organizing your home. ??? Passing a small amount of thick, bloody mucus out of your vagina (normal bloody show or losing your mucus plug). This may happen more than a week before labor begins, or it might occur right before labor begins as the opening of the cervix starts to widen (dilate). For some women, the entire mucus plug passes at once. For others, smaller portions of the mucus plug may gradually pass over several days. ??? Your baby moving (dropping) lower in your pelvis to get into position for (lightening). When this happens, you may feel more pressure on your bladder and pelvic bone and less pressure on your ribs. This may make it easier to breathe. It may also cause you to need to urinate more often and have problems with bowel movements. ??? Having practice contractions ([place] contractions) that occur at irregular (unevenly spaced) intervals that are more than 10 minutes apart. This is also called false labor. False labor contractions are common after exercise or sexual activity, and they will stop if you change position, rest, or drink fluids. These contractions are usually mild and do not get stronger over time. They may feel like: ? A backache or back pain. ? Mild cramps, similar to menstrual cramps. ? Tightening or pressure in your abdomen. Other early symptoms that labor may be starting soon include: ??? Nausea or loss of appetite. ??? Diarrhea. ??? Having a sudden burst of energy, or feeling very tired. ??? Mood changes. ??? Having trouble sleeping. How will I know when labor has begun? Signs that true labor has begun may include: ??? Having contractions that come at regular (evenly spaced) intervals and increase in intensity. This may feel like more intense tightening or pressure in your abdomen that moves to your back. ? Contractions may also feel like rhythmic pain in your upper thighs or back that comes and goes at regular intervals. ? For first-time mothers, this change in intensity of contractions often occurs at a more gradual pace. ? Women who have given before may notice a more rapid progression of contraction changes. ??? Having a feeling of pressure in the vaginal area. ??? Your water breaking (rupture of membranes). This is when the sac of fluid that surrounds your baby breaks. When this happens, you will notice fluid leaking from your vagina. This may be clear or blood-tinged. Labor usually starts within 24 hours of your water breaking, but it may take longer to begin. ? Some women notice this as a gush of fluid. ? Others notice that their underwear repeatedly becomes damp. Follow these instructions at home: ??? When labor starts, or if your water breaks, call your health care provider or nurse care line. Based on your situation, they will determine when you should go in for an exam. ??? When you are in early labor, you may be able to rest and manage symptoms at home. Some strategies to try at home include: ? Breathing and relaxation techniques. ? Taking a warm bath or shower. ? Listening to music. ? Using a heating pad on the lower back for pain. If you are directed to use heat: ? Place a towel between your skin and the heat source. ? Leave the heat on for 20???30 minutes. ? Remove the heat if your skin turns bright red. This is especially important if you are unable to feel pain, heat, or cold. You may have a greater risk of getting burned. Get help right away if: ??? You have painful, regular contractions that are 5 minutes apart or less. ??? Labor starts before you are 37 weeks along in your . ??? You have a fever. ??? You have a headache that does not go away. ??? You have bright red blood coming from your vagina. ??? You do not feel your baby moving. ??? You have a sudden onset of: ? Severe headache with vision problems. ? Nausea, vomiting, or diarrhea. ? Chest pain or shortness of breath. These symptoms may be an emergency. If your health care provider recommends that you go to the hospital or center where you plan to deliver, do not drive yourself. Have someone else drive you, or call emergency services (911 in the [place] Summary ??? Labor is your body's natural process of moving your baby, placenta, and umbilical cord out of your uterus. ??? The process of labor usually starts when your baby is full-term, between 37 and 40 weeks of . ??? When labor starts, or if your water breaks, call your health care provider or nurse care line. Based on your situation, they will determine when you should go in for an exam. This information is not intended to replace advice given to you by your health care provider. Make sure you discuss any questions you have with your health care provider. Document Revised: 12/03/2017 Document Reviewed: 08/10/2017 [employer] Patient Education ?? 2020 [employer]. Emergency Awareness and Preventative Care STROKE is [...] Assistance with quitting is available by contacting 9-358-LTBY-NOW. This is a free resource providing counseling, [...] This Visit (last charted value for your 12/07/2020 visit) No Laboratory or Other Results This Visit Patient Name:GRACE ARDON I have received and understand this information and was given the opportunity to ask questions. Patient/Clinical Assistant Name: Patient/Clinical Assistant Signature: Relationship to Patient: Clinician/Hospital Clinical Assistant Signature: Date: documented in this encounter Plan of Treatment Not on file documented as of this encounter Visit Diagnoses Not on filedocumented in this encounter
--- OUTSIDE RECORDS SUMMARY | 2024-10-20 01:54 | XMS_ITS | Encounter Summary ---
Author Organization [employer] ([place], [place], [place], [place]) Address [address] [place] [address] Care Team Providers Care Grinder Set Up Operator Thread Tool Name Role Phone Unavailable Primary Care Provider Unavailabl e Encounter Details Date Type Department Care Team (Late st Contact Info) Description 12/09/2020 Transcribed Document [facility] [place] [facility] [place] [address] ProviderJimbo MD [address] [place] [address] Social History Tobacco Use Types Packs/Day [...] Conversion Note - Jimbo ProviderMD - 12/09/2020 9:20 AM CDT Patient: GRACE ARDON Age: 15 Years Sex: Female : 2005 Chief Complaint Contractions Primary Care Provider BETHANY RUELAS DR History of Present Illness Patient presented with contractions beginning during the night. She denies vaginal bleeding or leakage of fluid. She states her contractions are becoming more intense and more frequent. She has had care with Dr. Rojas. has been uncomplicated. Review of Systems Constitutional: No fevers, chills, sweats Eye: No recent visual problems, denies blurry vision HEENT: No ear pain, nasal congestion, sore throat, voice changes Respiratory: No shortness of breath, cough, pain on breathing Cardiovascular: No Chest pain, palpitations Gastrointestinal: No nausea, vomiting, diarrhea, constipation Genitourinary: No hematuria, dysuria, lesions on genitalia Otoniel/Lymph: Negative for bruising, no edema Endocrine: Negative for excessive thirst, excessive hunger, heat or cold intolerance Musculoskeletal: No joint pain, muscle pain, decreased range of motion Integumentary: No rash, pruritus, abrasions, lesions Neurologic: No weakness, numbness, frequent headaches Psychiatric: No anxiety, depression, mood changes Vital Signs T: 36.6 ??C HR: 75(Peripheral) RR: 18 BP: 128/81 HT: 157.48 cm WT: 72.73 kg BMI: 29.3 Oxygen Settings (Last) No qualifying data available. Physical Exam General: No acute distress, awake and oriented x3 HEENT: Normocephalic atraumatic, moist mucous membranes Eyes: Pupils equal round reactive to light and accommodation, extraocular muscles intact Respiratory: Normal work of breathing, good air movement Abdomen: Gravid, soft, nontender Pelvic exam: Normal external female genitalia, no lesions, no leakage of fluid Cervix: Initially 2 cm dilated and 50% effaced, per the nurse at presentation around 6:45 AM. Now, 3-4 cm dilated, 80% effaced, -2 Cephalic by palpation of sutures Extremities: No calf tenderness, no lower extremity edema Psychiatric: Good judgment and insight, normal affect and mood Neurologic: Cranial nerves II through XII intact, no deficits Skin: No rashes or lesions Assessment/Plan Assessment: 1. 15-year-old 1 at 40-0/7 weeks gestational age in active spontaneous labor 2. status reassuring 3. GBS negative Plan: 1. We will admit for labor. Augment if necessary. Patient had epidural upon request. I have discussed this patient with Dr. Rojas, who agrees with the plan. Management from this point as per primary MOTOR SETTER. High risk teen in third trimester Orders: acetaminophen, 650 mg, Oral, Tab, Q4H, PRN for Pain (Mild 1-3), Routine, Start 12/09/20 9:48:00 EDT, 12/09/20 9:48:00 EDT acetaminophen, 1,000 mg, Oral, Tab, Q4H, PRN for Fever, Routine, Start 12/09/20 9:48:00 EDT, 12/09/20 9:48:00 EDT Al hydroxide/Mg hydroxide/simethicone, 30 mL, Oral, Liquid, Q8H, PRN for Heartburn, Routine, Start 12/09/20 9:48:00 EDT butorphanol, 2 mg, IV Push, Inj, Q2H, PRN for Pain (Moderate 4-6), Routine, Start 12/09/20 9:48:00 EDT, 12/09/20 9:48:00 EDT carboprost, 250 mcg, IntraMuscular, Inj, Q15Min, PRN for Other (See Comment), Routine, Start 12/09/20 9:48:00 EDT, 12/09/20 9:48:00 EDT Lactated Ringers Injection intravenous solution 1,000 mL, 1,000 mL, Bag Volume (mL) = 1,000, IntraVENous, Rate = 125 mL/Hr, start date 12/09/20 9:48:00 EDT, Routine, 1.78, m2 Lactated Ringers Injection intravenous solution 1,000 mL, 1,000 mL, Bag Volume (mL) = 1,000, IntraVENous, Rate = 1,000 mL/Hr, start date 12/09/20 9:48:00 EDT, Routine, X 1 Time(s), Stop 12/09/20 10:47:00 EDT, 1.78, m2 methylergonovine, 0.2 mg, IntraMuscular, Inj, 1-Time, PRN for Other (See Comment), Routine, Start 12/09/20 9:48:00 EDT, 12/09/20 9:48:00 EDT miSOPROStol, 1,000 mcg, Oral, Tab, 1-Time, PRN for Other (See Comment), Routine, Start 12/09/20 9:48:00 EDT, 12/09/20 9:48:00 EDT ondansetron, 4 mg, IV Push, Inj, Q4H, PRN for Other (See Comment), Routine, Start 12/09/20 9:48:00 EDT, 12/09/20 9:48:00 EDT oxytocin, 10 Units, IntraMuscular, Inj, 1-Time, PRN for Other (See Comment), Routine, Start 12/09/20 9:48:00 EDT, 12/09/20 9:48:00 EDT oxytocin 20 Units + Lactated Ringers Premix Diluent 1,000 mL, 1,000 mL, Bag Volume (mL) = 1,000, IntraVENous, start date 12/09/20 9:48:00 EDT, Routine, titrate, 1.78, m2 oxytocin 20 Units + Lactated Ringers Premix Diluent 1,000 mL, 1,000 mL, Bag Volume (mL) = 1,000, IntraVENous, start date 12/09/20 9:48:00 EDT, Routine, after delivery of placenta, 999, 1.78, m2 promethazine, 12.5 mg, IV Push, Inj, Q4H, PRN for Nausea, Routine, Start 12/09/20 9:48:00 EDT, 12/09/20 9:48:00 EDT terbutaline, 0.25 mg, SubCutaneous, Inj, 1-Time, PRN for Other (See Comment), Routine, Start 12/09/20 9:48:00 EDT, 12/09/20 9:48:00 EDT ABORh Admit to Inpatient Antibody Screen - Tube CBC w/ Auto Diff Consult to Physician Digital Cervical Exam DVT VTE Prophylaxis Education Electronic Heart Rate External and TOCO Epidural Catheter Management Facility Protocol Scalp Electrode Intrauterine Pressure Catheter Insertion/Management Intrauterine Resuscitative Actions Lab Order Instructions to Nursing Nitrous Oxide/Oxygen Notify Provider of Change in Patient Condition NPO (immediate) OB UDSC Peripheral IV Insertion Peripheral IV Management Pulse Oximetry Spot Check (Nursing) Resuscitation Status Up Ad Paulina Urinary Catheter Insertion Urinary Catheter Insertion Urinary Catheter Management Vital Signs Weight (Routine) VTE Prophylaxis - Medical No VTE Prophylaxis Orders. Problem List/Past Medical History Ongoing Suicide risk Historical 21 weeks gestation of Procedure/Surgical History Denies Home Medications (1) Active PNV , Oral, Daily Allergies No Known Allergies No Known Medication Allergies Social History Denies tobacco, alcohol, drug use Family History Noncontributory Diagnostic Results NST: 120/reactive/moderate variability/no decelerations Tocometry: Contractions every 2-5 minutes Lab Results Test Name Test Result Date/Time Urine Type. U CleanCatch 12/09/2020 07:40 EDT Urine Color YELLOW2 12/09/2020 07:40 EDT Urine Appearance CLEAR2 12/09/2020 07:40 EDT Urine Specific [place] 1.024 12/09/2020 07:40 EDT Urine pH Dipstick 6.0 12/09/2020 07:40 EDT Urine Leukocyte Esterase TRACE2 (Abnormal) 12/09/2020 07:40 EDT Urine Nitrite NEGATIVE2 12/09/2020 07:40 EDT Urine Protein Dipstick NEGATIVE2 12/09/2020 07:40 EDT Urine Glucose Dipstick NEGATIVE2 12/09/2020 07:40 EDT Urine Ketones Dipstick NEGATIVE2 12/09/2020 07:40 EDT Urine Urobilinogen Dipstick 1.0 12/09/2020 07:40 EDT Urine Bilirubin Dipstick NEGATIVE2 12/09/2020 07:40 EDT Urine Blood Dipstick NEGATIVE2 12/09/2020 07:40 EDT Ur RBC None Seen 12/09/2020 07:40 EDT Ur WBC 2-5 (Abnormal) 12/09/2020 07:40 EDT Ur Bacteria Trace (Abnormal) 12/09/2020 07:40 EDT Ur Mucous 1+ (Abnormal) 12/09/2020 07:40 EDT Ur Squamous Epithelial Cells 2-5 (Abnormal) 12/09/2020 07:40 EDT Urine Culture if Indicated Culture Ordered 12/09/2020 07:40 EDT UDS pH 6.1 12/09/2020 07:40 EDT UDS Amp AUNEG 12/09/2020 07:40 EDT UDS Sahniqua AUNEG 12/09/2020 07:40 EDT UDS Benzo AUNEG 12/09/2020 07:40 EDT UDS Taya AUNEG 12/09/2020 07:40 EDT UDS Meth AUNEG 12/09/2020 07:40 EDT UDS Opi AUNEG 12/09/2020 07:40 EDT UDS Oxy AUNEG 12/09/2020 07:40 EDT UDS PCP AUNEG 12/09/2020 07:40 EDT UDS TCA AUNEG 12/09/2020 07:40 EDT UDS THC AUNEG 12/09/2020 07:40 EDT Buprenorphine Screen, Urine AUNEG 12/09/2020 07:40 EDT Heroin Metab (6AM) by LC-MS/MS, Urine AUNEG 12/09/2020 07:40 EDT Propoxyphene, Urine AUNEG 12/09/2020 07:40 EDT SpGravity, Urine 1.021 12/09/2020 07:40 EDT UDS Creatinine, Toxicology 141.6 mg/dL 12/09/2020 07:40 EDT SARS-CoV-2 (COVID19 PCR) Negative2 12/09/2020 07:40 EDT Additional Documentation Code Status Start: 12/09/20 9:18:00 EDT, Full Code, Continuous Order documented in this encounter Plan of Treatment Not on file documented as of this encounter Visit Diagnoses Not on filedocumented in this encounter
--- OUTSIDE RECORDS SUMMARY | 2024-10-20 01:54 | XMS_ITS | Encounter Summary ---
Author Organization [employer] ([place], [place], [place], [place]) Address [address] [place] [address] Care Team Providers Care Lasting Floorworker Name Role Phone Unavailable Primary Care Provider Unavailabl e Encounter Details Date Type Department Care Team (Late st Contact Info) Description 12/08/2020 Transcribed Document [facility] [place] [facility] [place] [address] ProviderJimbo MD [address] [place] [address] Social History Tobacco Use Types Packs/Day Years Used Date Smoking Tobacco: Never Assessed Comments Unknown Sex and Gender Information Value Date Recorded Sex Assigned at Female 09/13/2021 5:08 PM CDT Legal Sex Female 5:08 PM CDT Gender Identity Female 09/13/2021 5:08 PM CDT Sexual Orientation Not on file documented as of this encounter Miscellaneous Notes * Aayushner Conversion Note - Jimbo ProviderMD - 12/08/2020 4:12 AM CDT Nursing Discharge Summary Entered On: 12/08/2020 4:13 EDT Performed On: 12/08/2020 4:12 EDT by Cassia Nava Discharge Documentation Discharge Date/Time : 12/08/2020 4:15 EDT Patient Disposition, General : Discharge Discharge To : Home with ambulatory/outpatient follow-up Mode Of Departure, General Discharge : Ambulatory Accompanied By, Discharge : Care provider IV Discontinued : Not applicable Personal Belongings With Patient : Yes Pt's Own Supply of Medications Returned : No patient supply of medications to return Prescriptions Given to Patient : No Medications Given to Patient : No Discharge Instructions Reviewed With, Opportunity For Questions Given : Patient Patient Education Completed : Yes Teaching Method : Explanation, Printed materials Teaching Evaluation : Verbalizes understanding Cassia Nava - 12/08/2020 4:12 EDT Electronically signed by [employer] [facility] Conversion Seam Checker Cerner at 07/03/2022 6:38 PM CDT documented in this encounter Plan of Treatment Not on file documented as of this encounter Visit Diagnoses Not on filedocumented in this encounter
--- OUTSIDE RECORDS SUMMARY | 2024-10-20 01:54 | XMS_ITS | Encounter Summary ---
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 Name Role Phone Unavailable Primary Care Provider Unavailabl e Encounter Details Date Type Department Care Team (Late st Contact Info) Description 12/11/2020 Transcribed Document [facility] [place] [facility] [place] Formerly [facility], [facility] [place] [address] ProviderJimbo MD [address] [place] [address] Social History Tobacco Use Types [...] Conversion Note - Jimbo ProviderMD - 12/11/2020 1:36 PM CDT [place] [id number] GRACE ARDON :2005 Visit Time:12/09/2020 Your Visit Summary Your Care Team Admitting Physician - SULTANA DE ANDA DO Attending Physician - USLTANA DE ANDA, Primary Care Physician - BETHANY RUELAS DR Referring Physician - JESSENIA, SELF REFERRED Your Diagnosis 40 weeks gestation of Depression during in third trimester High risk teen in third trimester (spontaneous vaginal delivery) These Are Your Goals Patient Discharge Goal Patient Discharge Goal: Home What to do next Instructions From Your Care Team You have an appointment at [facility] for counseling on Sunday, December 15 at 1:00 pm. Please arrive 30 minutes early to complete new patient paperwork. Address is in [facility] at [address], [place], [place]. Phone number is to change appointment or for 24 hour crisis line. Follow-Up Appointments Follow Up with SULTANA DE ANDA When Within 6 weeks Where: [address] [place] [address]- Business (1) Medications What How Much When Instructions [...] medications per your retail pharmacy guidance. Allergies Bananas Carrots Coconut Kiwi No Known Medication Allergies Education Materials Care After Vaginal Delivery This sheet gives you information about how to care for yourself from the time you deliver your baby to up to 6???12 weeks after delivery ( period). Your health care provider may also give you more specific instructions. If you have problems or questions, contact your health care provider. Follow these instructions at home: Vaginal bleeding ??? It is normal to have vaginal bleeding (lochia) after delivery. Wear a sanitary pad for vaginal bleeding and discharge. ? During the first week after delivery, the amount and appearance of lochia is often similar to a menstrual period. ? Over the next few weeks, it will gradually decrease to a dry, yellow-brown discharge. ? For most women, lochia stops completely by 4???6 weeks after delivery. Vaginal bleeding can vary from woman to woman. ??? Change your sanitary pads frequently. Watch for any changes in your flow, such as: ? A sudden increase in volume. ? A change in color. ? Large blood clots. ??? If you pass a blood clot from your vagina, save it and call your health care provider to discuss. Do not flush blood clots down the toilet before talking with your health care provider. ??? Do not use tampons or douches until your health care provider says this is safe. ??? If you are not , your period should return 6???8 weeks after delivery. If you are feeding your child breast milk only (exclusive ), your period may not return until you stop . Perineal care ??? Keep the area between the vagina and the anus (perineum) clean and dry as told by your health care provider. Use medicated pads and pain-relieving sprays and creams as directed. ??? If you had a cut in the perineum (episiotomy) or a tear in the vagina, check the area for signs of infection until you are healed. Check for: ? More redness, swelling, or pain. ? Fluid or blood coming from the cut or tear. ? Warmth. ? Pus or a bad smell. ??? You may be given a squirt bottle to use instead of wiping to clean the perineum area after you go to the bathroom. As you start healing, you may use the squirt bottle before wiping yourself. Make sure to wipe gently. ??? To relieve pain caused by an episiotomy, a tear in the vagina, or swollen veins in the anus (hemorrhoids), try taking a warm sitz bath 2???3 times a day. A sitz bath is a warm water bath that is taken while you are sitting down. The water should only come up to your hips and should cover your buttocks. Breast care ??? Within the first few days after delivery, your breasts may feel heavy, full, and uncomfortable (breast engorgement). Milk may also leak from your breasts. Your health care provider can suggest ways to help relieve the discomfort. Breast engorgement should go away within a few days. ??? If you are : ? Wear a bra that supports your breasts and fits you well. ? Keep your nipples clean and dry. Apply creams and ointments as told by your health care provider. ? You may need to use breast pads to absorb milk that leaks from your breasts. ? You may have uterine contractions every time you breastfeed for up to several weeks after delivery. Uterine contractions help your uterus return to its normal size. ? If you have any problems with , work with your health care provider or review consultant. ??? If you are not : ? Avoid touching your breasts a lot. Doing this can make your breasts produce more milk. ? Wear a good-fitting bra and use cold packs to help with swelling. ? Do not squeeze out (express) milk. This causes you to make more milk. Intimacy and sexuality ??? Ask your health care provider when you can engage in sexual activity. This may depend on: ? Your risk of infection. ? How fast you are healing. ? Your comfort and desire to engage in sexual activity. ??? You are able to get after delivery, even if you have not had your period. If desired, talk with your health care provider about methods of control (contraception). Medicines ??? Take hogw-kur-ebpyqvk and prescription medicines only as told by your health care provider. ??? If you were prescribed an antibiotic medicine, take it as told by your health care provider. Do not stop taking the antibiotic even if you start to feel better. Activity ??? Gradually return to your normal activities as told by your health care provider. Ask your health care provider what activities are safe for you. ??? Rest as much as possible. Try to rest or take a nap while your baby is sleeping. Eating and drinking ??? Drink enough fluid to keep your urine pale yellow. ??? Eat high-fiber foods every day. These may help prevent or relieve constipation. High-fiber foods include: ? Whole grain cereals and breads. ? Brown rice. ? Beans. ? Fresh fruits and vegetables. ??? Do not try to lose weight quickly by cutting back on calories. ??? Take your vitamins until your checkup or until your health care provider tells you it is okay to stop. Lifestyle ??? Do not use any products that contain nicotine or tobacco, such as cigarettes and e-cigarettes. If you need help quitting, ask your health care provider. ??? Do not drink alcohol, especially if you are . General instructions ??? Keep all follow-up visits for you and your baby as told by your health care provider. Most women visit their health care provider for a checkup within the first 3???6 weeks after delivery. Contact a health care provider if: ??? You feel unable to cope with the changes that your child brings to your life, and these feelings do not go away. ??? You feel unusually sad or worried. ??? Your breasts become red, painful, or hard. ??? You have a fever. ??? You have trouble holding urine or keeping urine from leaking. ??? You have little or no interest in activities you used to enjoy. ??? You have not breastfed at all and you have not had a menstrual period for 12 weeks after delivery. ??? You have stopped and you have not had a menstrual period for 12 weeks after you stopped . ??? You have questions about caring for yourself or your baby. ??? You pass a blood clot from your vagina. Get help right away if: ??? You have chest pain. ??? You have difficulty breathing. ??? You have sudden, severe leg pain. ??? You have severe pain or cramping in your lower abdomen. ??? You bleed from your vagina so much that you fill more than one sanitary pad in one hour. Bleeding should not be heavier than your heaviest period. ??? You develop a severe headache. ??? You faint. ??? You have blurred vision or spots in your vision. ??? You have bad-smelling vaginal discharge. ??? You have thoughts about hurting yourself or your baby. If you ever feel like you may hurt yourself or others, or have thoughts about taking your own life, get help right away. You can go to the nearest emergency department or call: ??? Your local emergency services (911 in the [place] ??? A suicide crisis helpline, such as the National Suicide Prevention Lifeline at . This is open 24 hours a day. Summary ??? The period of time right after you deliver your up to 6???12 weeks after delivery is called the period. ??? Gradually return to your normal activities as told by your health care provider. ??? Keep all follow-up visits for you and your baby as told by your health care provider. This information is not intended to replace advice given to you by your health care provider. Make sure you discuss any questions you have with your health care provider. Document Revised: 03/08/2018 Document Reviewed: 12/17/2017 [employer] Patient Education ?? 2020 [employer]. Baby Blues The period begins right after the of a baby. During this time, there is often a lot of corrine and excitement. It is also a time of many changes in the life of the parents. No matter how many times a mother gives , each child brings new challenges to the family, including different ways of relating to one another. It is common to have feelings of excitement along with confusing changes in moods, emotions, and thoughts. You may feel happy one minute and sad or stressed the next. These feelings of sadness usually happen in the period right after you have your baby, and they go away within a week or two. This is called the baby blues. What are the causes? There is no known cause of baby blues. It is likely caused by a combination of factors. However, changes in hormone levels after childbirth are believed to trigger some of the symptoms. Other factors that can play a role in these mood changes include: ??? Lack of sleep. ??? Stressful life events, such as poverty, caring for a loved one, or of a loved one. ??? Genetics. What are the signs or symptoms? Symptoms of this condition include: ??? Brief changes in mood, such as going from extreme happiness to sadness. ??? Decreased concentration. ??? Difficulty sleeping. ??? Crying spells and tearfulness. ??? Loss of appetite. ??? Irritability. ??? Anxiety. If the symptoms of baby blues last for more than 2 weeks or become more severe, you may have depression. How is this diagnosed? This condition is diagnosed based on an evaluation of your symptoms. There are no medical or lab tests that lead to a diagnosis, but there are various questionnaires that a health care provider may use to identify women with the baby blues or depression. How is this treated? Treatment is not needed for this condition. The baby blues usually go away on their own in 1???2 weeks. Social support is often all that is needed. You will be encouraged to get adequate sleep and rest. Follow these instructions at home: Lifestyle ??? Get as much rest as you can. Take a nap when the baby sleeps. ??? Exercise regularly as told by your health care provider. Some women find yoga and walking to be helpful. ??? Eat a balanced and nourishing diet. This includes plenty of fruits and vegetables, whole grains, and lean proteins. ??? Do little things that you enjoy. Have a cup of tea, take a bubble bath, read your favorite magazine, or listen to your favorite music. ??? Avoid alcohol. ??? Ask for help with airplane cabin attendant, cooking, grocery shopping, or running errands. Do not try to do everything yourself. Consider hiring a brushing operator to help. This is a professional who specializes in providing support to new mothers. ??? Try not to make any major life changes during or right after giving . This can add stress. General instructions ??? Talk to people close to you about how you are feeling. Get support from your partner, family members, friends, or other new moms. You may want to join a support group. ??? Find ways to cope with stress. This may include: ? Writing your thoughts and feelings in a journal. ? Spending time outside. ? Spending time with people who make you laugh. ??? Try to stay positive in how you think. Think about the things you are grateful for. ??? Take xodn-mpq-hssixoh and prescription medicines only as told by your health care provider. ??? Let your health care provider know if you have any concerns. ??? Keep all visits as told by your health care provider. This is important. Contact a health care provider if: ??? Your baby blues do not go away after 2 weeks. Get help right away if: ??? You have thoughts of taking your own life (suicidal thoughts). ??? You think you may harm the baby or other people. ??? You see or hear things that are not there (hallucinations). Summary ??? After giving , you may feel happy one minute and sad or stressed the next. Feelings of sadness that happen right after the baby is born and go away after a week or two are called the baby blues. ??? You can manage the baby blues by getting enough rest, eating a healthy diet, exercising, spending time with supportive people, and finding ways to cope with stress. ??? If feelings of sadness and stress last longer than 2 weeks or get in the way of caring for your baby, talk to your health care provider. This may mean you have depression. This information is not intended to replace advice given to you by your health care provider. Make sure you discuss any questions you have with your health care provider. Document Revised: 06/27/2019 Document Reviewed: 05/01/2017 [employer] Patient Education ?? 2020 [email or web address] and Mastitis Mastitis is inflammation of the breast tissue. It can occur in women who are . This can make painful. Mastitis will sometimes go away on its own, especially if it is not caused by an infection (if it is noninfectious mastitis). A health care provider will help determine if medical treatment is needed. Treatment may be needed if the condition is caused by a bacterial infection (infectious mastitis). What are the causes? This condition is often associated with a blocked milkduct, which can happen when too much milk builds up in the breast. Causes of excess milk in the breast can include: ??? Poor latch. If your child is not latched on to your breast properly, he or she may not empty your breast completely while . ??? Allowing too much time to pass between feedings. ??? Wearing a bra or other clothing that is too tight. This puts extra pressure on your milk ducts so milk does not flow through them as it should. ??? Milk remaining in the breast because it is overfilled (engorged). ??? Stress and tiredness (fatigue). Mastitis is often caused by a bacterial infection. Bacteria may enter the breast tissue through cuts, cracks, or openings in the skin near the nipple area. Cracks in the skin often develop when your child does not latch on properly to your breast. What are the signs or symptoms? Symptoms of this condition include: ??? Swelling, redness, tenderness, and pain in an area of your breast. These usually affect the upper part of the breast, toward the armpit region. In most cases, these symptoms affect only one breast. In some cases, the symptoms may occur in both breasts at the same time and affect a larger portion of breast tissue. ??? Swelling of the glands under your arm on the same side. ??? Fatigue, headache, and flu-like muscle aches. ??? Fever. ??? Rapid pulse. Symptoms usually last 2???5 days. Breast pain and redness are at their worst on day 2 and day 3, and they usually go away by day 5. If an infection is left to worsen, a collection of pus (abscess) may develop. How is this diagnosed? This condition is usually diagnosed based on: ??? Your symptoms. ??? A physical exam. In some cases, tests may be done, such as: ??? Blood tests to determine whether your body is fighting a bacterial infection. ??? Mammogram or ultrasound tests to rule out other problems or diseases. ??? Fluid tests. If an abscess has developed, the fluid in the abscess may be removed with a needle. The fluid may be analyzed to determine whether bacteria are present. ??? Breast milk testing. A sample of your breast milk may be tested for bacteria. How is this treated? This condition will sometimes go away on its own with continued or pumping. Your health care provider may choose to wait 24 hours after first seeing you to decide whether treatment is needed. If treatment is needed, it may include: ??? Continuing to breastfeed or pump from both breasts to allow adequate milk flow and prevent an abscess from forming. Strategies to support include: ? from the affected side first. ? Using breast massage. ? Applying warmth to the affected area before . This can help with milk flow. Try a warm cloth or warm shower. ??? Self-care, such as rest and drinking more fluids. ??? Pain medicine. ??? Antibiotic medicine to treat a bacterial infection. ??? Using a needle to remove fluid from an abscess if one has developed. Follow these instructions at home: Medicines ??? Take zgiq-nin-pgyqweu and prescription medicines only as told by your health care provider. ??? If you were prescribed an antibiotic medicine, take it as told by your health care provider. Do not stop taking the antibiotic even if you start to feel better. tips ??? Continue to empty your breasts as often as possible, either by or using an electric breast pump. This is very important for preventing mastitis or treating it if it develops. Ask your health care provider whether you need to change your or pumping routine. ??? If directed, apply moist heat to the affected area of your breast right before or pumping. Use the heat source that your health care provider recommends. ??? During , empty the first breast completely before going to the other breast. If your child is not emptying your breasts completely, use a breast pump to empty your breasts. ??? Use breast massage during feeding or pumping sessions. ??? If directed, put ice on the affected area of your breast right after or pumping. To do this: ? Put ice in a plastic bag. ? Place a towel between your skin and the bag. ? Leave the ice on for 20 minutes. Breast care ??? Keep your nipples clean and dry. ??? If you go back to work, pump your breasts while at work to stay on your nursing schedule. ??? Do not allow your breasts to become engorged. ??? Do not wear a tight or underwire bra. Wear a soft, supportive bra. ??? Check your nipples for any cracks or blisters. If you find any, talk with your health care provider or specialist (review consultant) for treatment. General instructions ??? Drink enough fluid to keep your urine pale yellow. This is especially important if you have a fever. ??? Get plenty of rest. ??? Wash your hands often with soap and water for at least 20 seconds. ??? Wash pump parts with hot and soapy water. ??? Keep all follow-up visits as told by your health care provider. This is important. Where to find more information ??? La [employer]ec[employer]: llli.org Contact a health care provider if: ??? You have pus-like discharge from your breast. ??? You have a fever. ??? Your symptoms do not improve within 2 days of starting treatment. ??? Your symptoms return after you have recovered from a breast infection. Get help right away if: ??? Your pain and swelling are getting worse. ??? You have pain that is not controlled with medicine. ??? You have a red line going from your breast toward your armpit. Summary ??? Mastitis is inflammation of the breast tissue. It is often caused by a blocked milk duct or bacteria. ??? If needed, treatment may include continuing to breastfeed or pump, applying warmth or cold and other strategies, self-care, and medicines. ??? If you were prescribed an antibiotic medicine, take it as told by your health care provider. Do not stop taking the antibiotic even if you start to feel better. ??? Continue to empty your breasts as often as possible either by or using an electric breast pump. This information is not intended to replace advice given to you by your health care provider. Make sure you discuss any questions you have with your health care provider. Document Revised: 01/13/2020 Document Reviewed: 01/13/2020 [email or web address] Patient Education ?? 2020 [employer]. Choosing to breastfeed is one of the best decisions you can make for yourself and your baby. A change in hormones during causes your breasts to make breast milk in your milk-producing glands. Hormones prevent breast milk from being released before your baby is born. They also prompt milk flow after . Once has begun, thoughts of your baby, as well as his or her sucking or crying, can stimulate the release of milk from your milk-producing glands. Benefits of Research shows that offers many health benefits for infants and mothers. It also offers a cost-free and convenient way to feed your baby. For your baby ??? Your first milk (colostrum) helps your baby's digestive system to function better. ??? Special cells in your milk (antibodies) help your baby to fight off infections. ??? Breastfed babies are less likely to develop asthma, allergies, obesity, or type 2 diabetes. They are also at lower risk for sudden syndrome (SIDS). ??? Nutrients in breast milk are better able to meet your baby???s needs compared to formula. ??? Breast milk improves your baby's brain development. For you ??? helps to create a very special patrick between you and your baby. ??? is convenient. Breast milk costs nothing and is always available at the correct temperature. ??? helps to burn calories. It helps you to lose the weight that you gained during . ??? makes your uterus return faster to its size before . It also slows bleeding (lochia) after you give . ??? helps to lower your risk of developing type 2 diabetes, osteoporosis, rheumatoid arthritis, cardiovascular disease, and breast, ovarian, uterine, and endometrial cancer later in life. basics Starting ??? Find a comfortable place to sit or lie down, with your neck and back well-supported. ??? Place a pillow or a rolled-up blanket under your baby to bring him or her to the level of your breast (if you are seated). Nursing pillows are specially designed to help support your arms and your baby while you breastfeed. ??? Make sure that your baby's tummy (abdomen) is facing your abdomen. ??? Gently massage your breast. With your fingertips, massage from the outer edges of your breast inward toward the nipple. This encourages milk flow. If your milk flows slowly, you may need to continue this action during the feeding. ??? Support your breast with 4 fingers underneath and your thumb above your nipple (make the letter C with your hand). Make sure your fingers are well away from your nipple and your baby???s mouth. ??? Stroke your baby's lips gently with your finger or nipple. ??? When your baby's mouth is open wide enough, quickly bring your baby to your breast, placing your entire nipple and as much of the areola as possible into your baby's mouth. The areola is the colored area around your nipple. ? More areola should be visible above your baby's upper lip than below the lower lip. ? Your baby's lips should be opened and extended outward (flanged) to ensure an adequate, comfortable latch. ? Your baby's tongue should be between his or her lower gum and your breast. ??? Make sure that your baby's mouth is correctly positioned around your nipple (latched). Your baby's lips should create a seal on your breast and be turned out (everted). ??? It is common for your baby to suck about 2???3 minutes in order to start the flow of breast milk. Latching Teaching your baby how to latch onto your breast properly is very important. An improper latch can cause nipple pain, decreased milk supply, and poor weight gain in your baby. Also, if your baby is not latched onto your nipple properly, he or she may swallow some air during feeding. This can make your baby fussy. Burping your baby when you switch breasts during the feeding can help to get rid of the air. However, teaching your baby to latch on properly is still the best way to prevent fussiness from swallowing air while . Signs that your baby has successfully latched onto your nipple ??? Silent tugging or silent sucking, without causing you pain. 's lips should be extended outward (flanged). ??? Swallowing heard between every 3???4 sucks once your milk has started to flow (after your let-down milk reflex occurs). ??? Muscle movement above and in front of his or her ears while sucking. Signs that your baby has not successfully latched onto your nipple ??? Sucking sounds or smacking sounds from your baby while . ??? Nipple pain. If you think your baby has not latched on correctly, slip your finger into the corner of your baby???s mouth to break the suction and place it between your baby's gums. Attempt to start again. Signs of successful Signs from your baby ??? Your baby will gradually decrease the number of sucks or will completely stop sucking. ??? Your baby will fall asleep. ??? Your baby's body will relax. ??? Your baby will retain a small amount of milk in his or her mouth. ??? Your baby will let go of your breast by himself or herself. Signs from you ??? Breasts that have increased in firmness, weight, and size 1???3 hours after feeding. ??? Breasts that are softer immediately after . ??? Increased milk volume, as well as a change in milk consistency and color by the fifth day of . ??? Nipples that are not sore, cracked, or bleeding. Signs that your baby is getting enough milk ??? Wetting at least 1???2 diapers during the first 24 hours after . ??? Wetting at least 5???6 diapers every 24 hours for the first week after . The urine should be clear or pale yellow by the age of 5 days. ??? Wetting 6???8 diapers every 24 hours as your baby continues to grow and develop. ??? At least 3 stools in a 24-hour period by the age of 5 days. The stool should be soft and yellow. ??? At least 3 stools in a 24-hour period by the age of 7 days. The stool should be seedy and yellow. ??? No loss of weight greater than 10% of weight during the first 3 days of life. ??? Average weight gain of 4???7 oz (113???198 g) per week after the age of 4 days. ??? Consistent daily weight gain by the age of 5 days, without weight loss after the age of 2 weeks. After a feeding, your baby may spit up a small amount of milk. This is normal. frequency and duration Frequent feeding will help you make more milk and can prevent sore nipples and extremely full breasts (breast engorgement). Breastfeed when you feel the need to reduce the fullness of your breasts or when your baby shows signs of hunger. This is called on demand. Signs that your baby is hungry include: ??? Increased alertness, activity, or restlessness. ??? Movement of the head from side to side. ??? Opening of the mouth when the corner of the mouth or cheek is stroked (rooting). ??? Increased sucking sounds, smacking lips, cooing, sighing, or squeaking. ??? Ilcv-ay-xmxro movements and sucking on fingers or hands. ??? Fussing or crying. Avoid introducing a pacifier to your baby in the first 4-6 weeks after your baby is born. After this time, you may choose to use a pacifier. Research has shown that pacifier use during the first year of a baby's life decreases the risk of sudden infant syndrome (SIDS). Allow your baby to feed on each breast as long as he or she wants. When your baby unlatches or falls asleep while feeding from the first breast, offer the second breast. Because newborns are often sleepy in the first few weeks of life, you may need to awaken your baby to get him or her to feed. times will vary from baby to baby. However, the following rules can serve as a guide to help you make sure that your baby is properly fed: ??? Newborns (babies 4 weeks of age or younger) may breastfeed every 1???3 hours. ??? Newborns should not go without for longer than 3 hours during the day or 5 hours during the night. ??? You should breastfeed your baby a minimum of 8 times in a 24-hour period. Breast milk pumping Pumping and storing breast milk allows you to make sure that your baby is exclusively fed your breast milk, even at times when you are unable to breastfeed. This is especially important if you go back to work while you are still , or if you are not able to be present during feedings. Your review consultant can help you find a method of pumping that works best for you and give you guidelines about how long it is safe to store breast milk. Caring for your breasts while you breastfeed Nipples can become dry, cracked, and sore while . The following recommendations can help keep your breasts moisturized and healthy: ??? Avoid using soap on your nipples. ??? Wear a supportive bra designed especially for nursing. Avoid wearing underwire-style bras or extremely tight bras (sports bras). ??? Air-dry your nipples for 3???4 minutes after each feeding. ??? Use only cotton bra pads to absorb leaked breast milk. Leaking of breast milk between feedings is normal. ??? Use lanolin on your nipples after . Lanolin helps to maintain your skin's normal moisture barrier. Pure lanolin is not harmful (not toxic) to your baby. You may also hand express a few drops of breast milk and gently massage that milk into your nipples and allow the milk to air-dry. In the first few weeks after giving , some women experience breast engorgement. Engorgement can make your breasts feel heavy, warm, and tender to the touch. Engorgement peaks within 3???5 days after you give . The following recommendations can help to ease engorgement: ??? Completely empty your breasts while or pumping. You may want to start by applying warm, moist heat (in the shower or with warm, water-soaked hand towels) just before feeding or pumping. This increases circulation and helps the milk flow. If your baby does not completely empty your breasts while , pump any extra milk after he or she is finished. ??? Apply ice packs to your breasts immediately after or pumping, unless this is too uncomfortable for you. To do this: ? Put ice in a plastic bag. ? Place a towel between your skin and the bag. ? Leave the ice on for 20 minutes, 2???3 times a day. ??? Make sure that your baby is latched on and positioned properly while . If engorgement persists after 48 hours of following these recommendations, contact your health care provider or a review consultant. Overall health care recommendations while ??? Eat 3 healthy meals and 3 snacks every day. Well-nourished mothers who are need an additional 450???500 calories a day. You can meet this requirement by increasing the amount of a balanced diet that you eat. ??? Drink enough water to keep your urine pale yellow or clear. ??? Rest often, relax, and continue to take your vitamins to prevent fatigue, stress, and low vitamin and mineral levels in your body (nutrient deficiencies). ??? Do not use any products that contain nicotine or tobacco, such as cigarettes and e-cigarettes. Your baby may be harmed by chemicals from cigarettes that pass into breast milk and exposure to secondhand smoke. If you need help quitting, ask your health care provider. ??? Avoid alcohol. ??? Do not use illegal drugs or marijuana. ??? Talk with your health care provider before taking any medicines. These include toxw-ggo-ffopdze and prescription medicines as well as vitamins and herbal supplements. Some medicines that may be harmful to your baby can pass through breast milk. ??? It is possible to become while . If control is desired, ask your health care provider about options that will be safe while your baby. Where to find more information: [employer]: www.llli.org Contact a health care provider if: ??? You feel like you want to stop or have become frustrated with . ??? Your nipples are cracked or bleeding. ??? Your breasts are red, tender, or warm. ??? You have: ? Painful breasts or nipples. ? A swollen area on either breast. ? A fever or chills. ? Nausea or vomiting. ? Drainage other than breast milk from your nipples. ??? Your breasts do not become full before feedings by the fifth day after you give . ??? You feel sad and depressed. ??? Your baby is: ? Too sleepy to eat well. ? Having trouble sleeping. ? More than 1 week old and wetting fewer than 6 diapers in a 24-hour period. ? Not gaining weight by 5 days of age. ??? Your baby has fewer than 3 stools in a 24-hour period. ??? Your baby's skin or the white parts of his or her eyes become yellow. Get help right away if: ??? Your baby is overly tired (lethargic) and does not want to wake up and feed. ??? Your baby develops an unexplained fever. Summary ??? offers many health benefits for infant and mothers. ??? Try to breastfeed your infant when he or she shows early signs of hunger. ??? Gently tickle or stroke your baby's lips with your finger or nipple to allow the baby to open his or her mouth. Bring the baby to your breast. Make sure that much of the areola is in your baby's mouth. Offer one side and burp the baby before you offer the other side. ??? Talk with your health care provider or review consultant if you have questions or you face problems as you breastfeed. This information is not intended to replace advice given to you by your health care provider. Make sure you discuss any questions you have with your health care provider. Document Revised: 05/30/2018 Document Reviewed: 04/06/2017 Elsevier Patient Education ?? 2020 Elsevier Inc. Emergency Awareness and Preventative Care STROKE is [...] Assistance with quitting is available by contacting 6-988-ONRI-NOW. This is a free resource providing counseling, support, and referral. Or you may contact your personal physician. trueAnthem Suicide Prevention Lifeline: The National Suicide Prevention [...] This Visit (last charted value for your 12/09/2020 visit) Hematology 12/10/2020 4:00 AM WBC: 12.3 K/uL -- Normal range between ( 3.9 and 10.0 ) RBC: 3.09 Million/uL -- Normal range between ( 3.93 and 5.22 ) Hct: 25.6 % -- Normal range between ( 34.1 and 44.9 ) Hgb: 8.2 Gram/dL -- Normal range between ( 11.2 and 15.7 ) Platelet Count: 149 K/uL -- Normal range between ( 163 and 369 ) MCH: 26.5 pg -- Normal range between ( 25.6 and 32.2 ) MCHC: 32.0 Gram/dL -- Normal range between ( 32.3 and 36.5 ) MCV: 82.8 fL -- Normal range between ( 79.0 and 94.8 ) Slide Review: No RDW: 12.3 % -- Normal range between ( 11.6 and 14.4 ) MPV: 13.2 fL -- Normal range between ( 9.4 and 12.4 ) 12/09/2020 10:16 AM Eos %: 1.9 % -- Normal range between ( 1.0 and 7.0 ) [place] #: 0.58 K/uL -- Normal range between ( 0.24 and 0.82 ) Eos #: 0.22 K/uL -- Normal range between ( 0.04 and 0.54 ) [place] %: 5.1 % -- Normal range between ( 4.7 and 12.5 ) Baso %: 0.3 % -- Normal range between ( 0.0 and 1.0 ) Baso #: 0.03 K/uL -- Normal range between ( 0.01 and 0.08 ) Neut %: 72.7 % -- Normal range between ( 34.0 and 71.0 ) Neut #: 8.30 K/uL -- Normal range between ( 1.56 and 6.13 ) Lymph %: 19.6 % -- Normal range between ( 19.3 and 53.0 ) Lymph #: 2.24 K/uL -- Normal range between ( 1.18 and 3.74 ) IG#: 0 x10(3)/uL IG%: 0 % -- Normal range between ( 0 and 1 ) Urinalysis 12/09/2020 7:40 AM Ur RBC: None Seen Urine Nitrite: Negative Urine Leukocyte Esterase: Trace Urine Appearance: Clear Urine Glucose Dipstick: Negative Urine Blood Dipstick: Negative Urine Urobilinogen Dipstick: 1.0 EU/dL -- Normal range between ( 0.2 and 1.0 ) Urine Protein Dipstick: Negative Ur Bacteria: Trace Ur Squamous Epithelial Cells: 2-5 /HPF Urine Color: Yellow Ur WBC: 2-5 /HPF Urine Ketones Dipstick: Negative Ur Mucous: 1+ Urine pH Dipstick: 6.0 -- Normal range between ( 6.0 and 8.0 ) Urine Bilirubin Dipstick: Negative Urine Specific Accident: 1.024 -- Normal range between ( 1.005 and 1.030 ) Urine Type.: U CleanCatch Urine Culture if Indicated: Culture Ordered Microbiology 12/09/2020 7:40 AM Urine Culture: See Result SARS-CoV-2 (COVID19 PCR): Negative Blood Bank 12/09/2020 10:16 AM ABO/Rh: B POS Antibody Screen (Tube): Negative ABSC 12/09/2020 9:56 AM ABO/Rh Repeat: B POS Toxicology 12/09/2020 7:40 AM UDS Amp: Negative UDS Shaniqua: Negative UDS Benzo: Negative UDS Taya: Negative UDS Meth: Negative UDS Opi: Negative UDS Oxy: Negative UDS PCP: Negative UDS TCA: Negative UDS THC: Negative Buprenorphine Screen, Urine: Negative Heroin Metab (6AM) by LC-MS/MS, Urine: Negative SpGravity, Urine: 1.021 Propoxyphene, Urine: Negative UDS pH: 6.1 UDS Creatinine, Toxicology: 141.6 mg/dL Patient Name:GRACE ARDON ADDISON I have received and understand this information and was given the opportunity to ask questions. Patient/C4 Planner Name: Patient/C4 Planner Signature: Relationship to Patient: Clinician/Hospital C4 Planner Signature: Date: Electronically signed by Clyde, Mark Conversion Certified Medical Transcriptionist Cerner at 07/03/2022 6:27 PM CDT documented in this encounter Plan of Treatment Not on file documented as of this encounter Visit Diagnoses Not on filedocumented in this encounter
--- OUTSIDE RECORDS SUMMARY | 2024-10-20 01:54 | XMS_ITS | Referral Summary ---
Author Organization [employer] ([place], [place], [place], [place]) Address [address] [place] [address] Care Team Providers Care Gill Box Operator Name Role Phone Unavailable Primary Care Provider Unavailabl e Social History Tobacco Use Types Packs/Day Years Used Date Smoking Tobacco: Never Assessed Comments Unknown Sex and Gender Information Value Date Recorded Sex Assigned at Female 09/13/2021 5:08 PM CDT Legal Sex Female 5:08 PM CDT Gender Identity Female 09/13/2021 5:08 PM CDT Sexual Orientation Not on file Plan of Treatment Not on file
--- OUTSIDE RECORDS SUMMARY | 2024-10-20 01:54 | XMS_ITS | Encounter Summary ---
Author Organization [employer] ([place], [place], [place], [place]) Address [address] [place] [address] Care Team Providers Care Chief Clinical Officer Name Role Phone Unavailable Primary Care Provider Unavailabl e Encounter Details Date Type Department Care Team (Late st Contact Info) Description 08/03/2020 Transcribed Document [facility] Family [place] [facility] [place] [address] ProviderJimbo MD [address] [place] [address] Social History Tobacco Use Types [...] Cerner Conversion Note - Historical ProviderMD - 08/03/2020 1:59 AM CDT Patient: GRACE CHILDRESS Age: 15 Years Sex: Female : 2005 History of Present Illness No maternal information available. 15 yo G1 at 21 5/7 weeks, patient of Dr Rojas, c/o spotting. She saw pink discharge on tissue after urinating on two occasions this evening. Denies overt vaginal bleeding. Reports white vaginal discharge. No odor, itching or burning. Denies pelvic pain or dysuria. Denies intercourse recently. Fetus has been moving normally. No h/o STDs. Has never had a pelvic examination. Her mother is with her this morning. Review of Systems Constitutional: [No fevers, chills, sweats] Eye: [No recent visual problems, eye discharge, eye pain, redness] HEENT: [No ear pain, nasal congestion, sore throat, voice changes] Respiratory: [No shortness of breath, cough, pain on breathing, sputum production] Cardiovascular: [No Chest pain, palpitations, syncope, shortness of breath while laying flat] Gastrointestinal: [No nausea, vomiting, diarrhea, constipation] Genitourinary: [No hematuria, dysuria, incontinence, lesions on genitalia] Otoniel/Lymph: [Negative for bruising tendency, swollen lymph glands, nosebleeds, history of anticoagulation] Endocrine: [Negative for excessive thirst, excessive hunger, excessive urination, heat or cold intolerance] Musculoskeletal: [No back pain, neck pain, joint pain, muscle pain, decreased range of motion] Integumentary: [No rash, pruritus, abrasions, lesions] Neurologic: [No weakness, numbness, frequent headaches, tremors, blackouts] Psychiatric: [No anxiety, depression, mood changes, hallucinations] Physical Exam Vitals & Measurements T: 36.9 ??C HR: 87(Peripheral) RR: 18 BP: 109/63 HT: 157.48 cm WT: 57.76 kg cooperative, normal behavior General Appearance A&O NAD HEENT NCAT Chest normal air movement Heart RR Abdomen Fundal height S=D Abdomen soft, NT Extremities no edema Pelvic Effacement Dilation fundus soft, NT speculum placed os closed, no bleeding, not friable no lesions yellow discharge in vagina no blood seen cervix closed, thick, firm Assessment/Plan 1. Spotting during in second trimester O26.852 2. 21 weeks gestation of Z3A.21 3. Viable in second trimester Z34.92 Plan: Discussed results of exam and lab with patient and her mother. No acute findings. Questions addressed Home Follow up with Dr Rojas for other lab results this week (Send out labs) Vaginal rest Orders: .Urinalysis Microscopic Assign Outpatient Status Chlamydia Trachomatis/GC by Aptima, Sendout Culture Urine DVT VTE Prophylaxis Education Electronic Heart Rate External and TOCO Facility Protocol Nonstress Test OB UDSC Resuscitation Status Trichomonas PCR Up Ad Paulina Vital Signs Allergies No Known Medication Allergies Medications Inpatient No active inpatient medications Home PNV , Oral, Daily Problem List/Past Medical History Ongoing No qualifying data Historical No qualifying data none Procedure/Surgical History none Social History Document (if any) Cultural/Tenriism beliefs that would affect medical care: single, lives with mother Family History [employer] Chemist History negative Transfusion History none Lab Results No qualifying data available Urinalysis Urine Color: YELLOW2 (08/03/20 02:01:00) Urine Appearance: CLEAR2 (08/03/20 02:01:00) Urine Bilirubin Dipstick: NEGATIVE2 (08/03/20 02:01:00) Urine Blood Dipstick: NEGATIVE2 (08/03/20 02:01:00) Urine Glucose Dipstick: NEGATIVE2 (08/03/20 02:01:00) Urine Ketones Dipstick: NEGATIVE2 (08/03/20 02:01:00) Urine Leukocyte Esterase: SMALL2 Abnormal (08/03/20 02:01:00) Urine Nitrite: NEGATIVE2 (08/03/20 02:01:00) Urine pH Dipstick: 6 (08/03/20 02:01:00) Urine Protein Dipstick: NEGATIVE2 (08/03/20 02:01:00) Urine Specific [place]: 1.018 (08/03/20 02:01:00) Urine Type.: U CleanCatch (08/03/20 02:01:00) Urine Urobilinogen Dipstick: 1.0 (08/03/20 02:01:00) Electronic Monitoring FHR 140 by doppler documented in this encounter Plan of Treatment Not on file documented as of this encounter Visit Diagnoses Not on filedocumented in this encounter
--- OUTSIDE RECORDS SUMMARY | 2024-10-20 01:54 | XMS_ITS | Encounter Summary ---
Author Organization [employer] ([place], [place], [place], [place]) Address [address] [place] [address] Care Team Providers Care Garment Folder Name Role Phone Unavailable Primary Care Provider Unavailabl e Encounter Details Date Type Department Care Team (Late st Contact Info) Description 12/11/2020 Transcribed Document [facility] [place] [address] ProviderJimbo MD [address] [place], [place] [id number] Social History Tobacco Use Types Packs/Day Years Used Date Smoking Tobacco: Never Assessed Comments Unknown Sex and Gender Information Value Date Recorded Sex Assigned at Female 09/13/2021 5:08 PM CDT Legal Sex Female 5:08 PM CDT Gender Identity Female 09/13/2021 5:08 PM CDT Sexual Orientation Not on file documented as of this encounter Miscellaneous Notes * Cerner Conversion Note - Historical ProviderMD - 12/11/2020 1:35 PM CDT Nursing Discharge Summary Entered On: 12/11/2020 13:36 EDT Performed On: 12/11/2020 13:35 EDT by MYRTLE ACOSTA Discharge Documentation Patient Disposition, General : Discharge Discharge To : Home with ambulatory/outpatient follow-up Mode Of Departure, General Discharge : Private vehicle Accompanied By, Discharge : Significant other IV Discontinued : Yes Personal Belongings With Patient : Yes Prescriptions Given to Patient : No Discharge Instructions Reviewed With, Opportunity For Questions Given : Patient Patient Education Completed : Yes Teaching Method : Explanation, Printed materials Teaching Evaluation : Verbalizes understanding MYRTLE ACOSTA - 12/11/2020 13:35 EDT documented in this encounter Plan of Treatment Not on file documented as of this encounter Visit Diagnoses Not on filedocumented in this encounter
--- OUTSIDE RECORDS SUMMARY | 2024-10-20 01:54 | XMS_ITS | Encounter Summary ---
Author Organization [employer] by [employer] ([place], [place], [place], [place]) Address [address] [place] [address] Care Team Providers Care Baster Hand Name Role Phone Unavailable Primary Care Provider Unavailabl e Encounter Details Date Type Department Care Team (Late st Contact Info) Description 12/08/2020 Transcribed Document [facility] [place] Family Medicine Formerly [facility] [place] [address] ProviderJimbo MD [address] [place] [address] Social History Tobacco Use Types [...] Conversion Note - Jimbo ProviderMD - 12/08/2020 4:13 AM CDT Patient: GRACE ARDON Age: 15 years Sex: Female : 2005 Associated Diagnoses: None Author: CLOVIS BROWNE MD [facility] ANTHONY x History and Physical / Note r Consult Patient's personal physician: Bob Date:12/08/2020 Time:04:10 hours Allergies: x None r See EMR dated today, reviewed no additions or deletions. Chief Complaint: contractions since 20:15 HPI: Age:15 Ab:0 PT:0 L:0 CS X:0 VD X:0 DIEGO:12/09/2020 EGA: 39w6d Known Dx and/or conditions: teen Started: Patient began having contractions at approximately 2014, initially irregular but proceeded to every 5 to 6 minutes. Contractions have not become stronger but somewhat irregular. Patient denies bleeding, leaking water, fever, abdominal pain, uterine pain. Patient was 1 to 2 cm 60% effaced and -3 station at last exam Worse: x Nothing, : Better x Nothing, Frequency: Q 6-9 min: Pain Severity: /10 r Recent coitus xNo N/V/D/C x No dysuria/urgency x No change dsg or bloody show x No fever x No headache x No vision change x No SOB Membranes x Intact rRuptured r Questioned Date: 12/08 Time: Color: Odor: Past Medical History: x See EMR. reviewed, additions below Family History: rSee EHR, reviewed Medical Conditions: Anxiety/depression Social History: r See EHR, reviewed Tobacco 0 ETOH 0 Drugs 0 Surgical Conditions: None Medications: x See EHR/PNR, reviewed vitamins Review of Systems: x See EHR/PNR, reviewed Gynecological Conditions: None x Negative Constitutional, Cardiovascular, Respiratory, GI/, Psychiatric r Reviewed Obstetrical Conditions: x Negative HEENT/Neuro/musculoskeletal/skin-breast/lymphatic r reviewed Physical Exam: Vital Signs: r AFVSS T=98.3, BP = 117/60, P = 102, R = 16 x WDWN r BMI x Thin x NAD rMild distress r Mod distress rSevere distress x A&O X3 HEENT:Normocephalic x PEERLA/EMOI Heart: x Normal rate x No murmur x No arrhythmia Abdomen: x Gravid x Soft x Non-tender in all quadrants SKIN: x Warm and Dry r Rash Uterus: x Nontender Fundus/MICA x No hernias, hepatomegaly, splenomegaly Musculoskeletal: x Edema x No Calf Tenderness Lungs: x Normal excursion, no audible wheezing x Vulva, vagina, bladder NL ? Show present Neuro: x Motor/Sensory equal & Intact Reflexes: 1+/1+ Back: x No CVA TTP x No Flank TTP Cervix: 2/80/-2/VTX/I r Appears in active labor x Not appearing in active labor Pelvis: Adequate by: r Clinical pelvimetry r Trial r EFW r Limited OB US: Nitrazine: r + r - Pooling: r + r - Valsalva: r + r - FERN: r+ r - UA: fFN: r + r - r Wet prep: r Neg, r BV, r Trichomonas, r Yeast r GC/Chlamydia Other: Observe x4 hours Repeat cervical exam x2 equals 2/90/-2/vertex/intact Interim Treatments: PO hydration, Monitor, contractions remained irregular q. 6-9 -10-7 minutes after oral hydration EHR and/or PNR reviewed, r no additional relevant information found r additional relevant information found Imaging Studies, r Reviewed computer images. r Discussed studies with: Laboratory: r Reviewed computer documentation. x Patient's condition discussed with local attending physician Dr. Vazquez Impression and/or Diagnosis: 39/6 weeks gestation; 1. False labor 2. Teen Plan: See [place] for home instructions, medications and follow-up plans Discussed options of further observation versus discharge home in false labor versus prodromal early labor. Patient decided to be discharged home. Detailed discussion of labor instructions, including returning for contractions every 5 minutes, any leaking of water, bleeding, abdominal pain, uterine pain, fever, or decreased movement. Patient has follow-up office appointment today at [facility] with Dr. Rojas. Rx: r Second opinion recommendations: See [place] Progress Notes r BabyHugger Abdominal Support recommended Ending time: Total [id number] time: Signature: Procedure: NST Start time: End time: FM: good r reduced r none r Baseline:130 Variability:moderate Acceleration:to 170 Decelerationsnone Contractions:irregular Q 6-10-9 minutes : x Reactive NST ? Non-Reactive NST Category:__1_ Signature:Clovis Browne Electronically signed by Clyde [facility] Conversion Train Master [place] at 07/03/2022 6:32 PM CDT documented in this encounter Plan of Treatment Not on file documented as of this encounter Visit Diagnoses Not on filedocumented in this encounter
--- OUTSIDE RECORDS SUMMARY | 2024-10-20 01:54 | XMS_ITS | Encounter Summary ---
Author Organization [employer] ([place], [place], [place], [place]) Address [address] [place] [address] Care Team Providers Care Senior Sourcing Manager Name Role Phone Unavailable Primary Care Provider Unavailabl e Encounter Details Date Type Department Care Team (Late st Contact Info) Description 08/03/2020 Transcribed Document [facility] [place] Family Medicine formerly [facility] [place] [address] ProviderJimbo MD formerly [facility] [place] [address] Social History Tobacco Use Types [...] Conversion Note - Historical ProviderMD - 08/03/2020 1:25 AM CDT Admission Data, OB Entered On: 08/03/2020 1:43 EDT Performed On: 08/03/2020 1:25 EDT by Anjelica Voss Advance Directive Patient has Advance Directive *Q : No, patient refuses Advance Directive information Anjelica Voss - 08/03/2020 1:25 EDT Height and Weight Height Source : Stated Height Entry Format : [place] Height, Feet : 5 ft(Converted to: 152 cm, 60 Inch) Clinical Height : 157.48 cm Height, Inches : 2 Inch(Converted to: 0 ft 2 Inch, 5.08 cm) Weight Source : Stated [place] Body Weight (IBW) : 49.73 kg Anjelica Voss - 08/03/2020 1:25 EDT Health Histories Smoking Status : Never (less than 100 in lifetime; none in last 30 days) Smokeless Tobacco Status : Former smokeless tobacco user, quit more than 30 days ago Anjelica Voss 08/03/2020 1:25 EDT Social History (As Of: 08/03/2020 01:43:45 EDT) Estimated Weight Type of Weight Measurement Est : [place] Weight, est lb : 127 lb(Converted to: 58 kg) Weight, est oz : 1 oz Estimated Clinical Dosing Weight : 57.76 kg Anjelica Voss 08/03/2020 1:25 EDT Influenza Vaccine Asmt, Adult Previous Vaccines from Immunization Schedule : No qualifying data available. Influenza Immunization, Current Season : Outside of influenza season Anjelica Voss 08/03/2020 1:25 EDT Pneumococcal Vaccine Previous Vaccines from Immunization Schedule : No qualifying data available. Pneumonia Immunization Received : No Pneumococcal Risk Assessment < Age 65 : None Anjelica Voss 08/03/2020 1:25 EDT Order Details Transport Mode Order Detail : Ambulatory Isolation Precautions Order Detail : Standard Precautions Order Detail : 1 IV Order Detail : 0 Oxygen Order Detail : 0 Nurse Collect Order Detail : 0 Lift/Transfer : Independent Central Line Order Detail : No Room Service : Appropriate Arterial Line : No Patient Needs Meds Crushed/Liquid : No Anjelica Voss 08/03/2020 1:25 EDT Vital Measurements Temperature Source : Oral Temperature Mode : Fahrenheit Temperature, Fahrenheit : 98.5 Deg F Clinical Temperature, C : 36.9 Deg C Pulse Method : Non-Invasive BP Device Peripheral Pulse Rate : 87 bpm Pulse Rhythm : Regular Respiratory Rate : 18 Breaths/Min Blood Pressure Source : Non-Invasive BP Device Blood Pressure Position : Side, Right Systolic Blood Pressure : 109 mmHg Diastolic Blood Pressure : 63 mmHg Anjelica Voss 08/03/2020 1:25 EDT Infectious Disease History Has the patient ever been tested for COVID-19? : No, Patient stated Does patient have symptoms of COVID-19? : No COVID19 Screening : No Experiencing Infectious Disease Symptoms : No symptoms Physical contact outside [place] in the last 30 days : No Infectious Disease History : None Tuberculosis Symptoms : None Anjelica Voss Lane 08/03/2020 1:25 EDT [place] Suicide Severity Rating Scale (C-SSRS) CSSRS Past Month Wish to be : No CSSRS Past Month Suicidal Thoughts : No CSSRS Lifetime Suicide Behavior : No Suicide Severity Rating Score : 0 Suicide Severity Rating : No Additional Care Required at this time Thoughts of Harming/Killing Others : No Anjelica Voss - 08/03/2020 1:25 EDT documented in this encounter Plan of Treatment Not on file documented as of this encounter Visit Diagnoses Not on filedocumented in this encounter
--- OUTSIDE RECORDS SUMMARY | 2024-10-20 01:54 | XMS_ITS | Encounter Summary ---
Author Organization [employer] ([place], [place], [place], [place]) Address [address] [place] [address] Care Team Providers Care Waste Water Worker Name Role Phone Unavailable Primary Care Provider Unavailabl e Encounter Details Date Type Department Care Team (Late st Contact Info) Description 12/10/2020 Transcribed Document [facility] [place] [facility] [place] [address] ProviderJimbo MD [address] [place] [address] Social History Tobacco Use Types [...] Cerner Conversion Note - Jimbo ProviderMD - 12/10/2020 10:19 AM CDT Patient: GRACE CHILDRESS Age: 15 Years Sex: Female : 2005 Assessment/Plan s/p vaginal delivery breast feeding desires discharge in am Subjective States she is doing well, breast feeding fair, Vital Signs VSS, afebirle Physical Exam FF at u, off to right some, massaged firmly and only minimal bleeding, encouraged to get up to void frequesntly Lochia small Perineum intact Medications aluminum hydroxide/magnesium hydroxide/simethicone 200 mg-200 mg-20 mg/5 mL oral suspension, 30 mL, Oral, Q4H, PRN Ambien, 5 mg= 1 Tab, Oral, At Bedtime, PRN Cytotec, 1000 mcg= 5 Tab, Rectal, 1-Time, PRN Dermoplast 20% topical spray, 1 [place], Topical, Q4H, PRN ferrous sulfate, 325 mg= 1 Tab, Oral, BID With Meals Hemabate, 250 mcg= 1 mL, IntraMuscular, 1-Time, PRN hydrocortisone-pramoxine 1%-1% rectal cream, 1 Application, Rectal, Q4H, PRN ibuprofen, 600 mg= 1 Tab, Oral, Q6H lanolin topical ointment, 1 Application, Topical, See Comment, PRN measles/mumps/rubella virus vaccine, 0.5 mL, SubCutaneous, 1-Time, PRN Methergine, 0.2 mg= 1 mL, IntraMuscular, 1-Time, PRN Mylicon, 80 mg= 1 Tab, Chew, Q4H, PRN Pepcid, 20 mg= 1 Tab, Oral, Q12H, PRN Percocet 5/325 oral tablet, 1 Tab, Oral, Q4H, PRN Percocet 5/325 oral tablet, 2 Tab, Oral, Q4H, PRN Pitocin, 10 Units= 1 mL, IntraMuscular, 1-Time, PRN Senokot S, 1 Tab, Oral, BID tetanus/diphth/pertuss (Tdap) adult/adol, 0.5 mL, IntraMuscular, 1-Time, PRN Tucks 50% topical pad, 1 Each, Topical, See Comment, PRN Lab Results Test Name Test Result Date/Time WBC 12.3 K/uL (High) 12/10/2020 04:00 EDT RBC 3.09 Million/uL (Low) 12/10/2020 04:00 EDT Hgb 8.2 Gram/dL (Low) 12/10/2020 04:00 EDT Hct 25.6 % (Low) 12/10/2020 04:00 EDT MCV 82.8 fL 12/10/2020 04:00 EDT MCH 26.5 pg 12/10/2020 04:00 EDT MCHC 32.0 Gram/dL (Low) 12/10/2020 04:00 EDT Platelet Count 149 K/uL (Low) 12/10/2020 04:00 EDT MPV 13.2 fL (High) 12/10/2020 04:00 EDT RDW 12.3 % 12/10/2020 04:00 EDT Slide Review No 12/10/2020 04:00 EDT Electronically signed by Clyde, [facility] Conversion [place] Hand Cerner at 07/03/2022 6:24 PM CDT documented in this encounter Plan of Treatment Not on file documented as of this encounter Visit Diagnoses Not on filedocumented in this encounter
--- OUTSIDE RECORDS SUMMARY | 2024-10-20 01:54 | XMS_ITS | Encounter Summary ---
Author Organization [employer] ([place], [place], [place], [place]) Address [address] [place] [address] Care Team Providers Care Plaster Patternmaker Name Role Phone Unavailable Primary Care Provider Unavailabl e Encounter Details Date Type Department Care Team (Late st Contact Info) Description 12/08/2020 Transcribed Document [facility] [place] [address] ProviderJimbo MD [address] [place] [address] Social History Tobacco Use Types Packs/Day Years Used Date Smoking Tobacco: Never Assessed Comments Unknown Sex and Gender Information Value Date Recorded Sex Assigned at Female 09/13/2021 5:08 PM CDT Legal Sex Female 5:08 PM CDT Gender Identity Female 09/13/2021 5:08 PM CDT Sexual Orientation Not on file documented as of this encounter Miscellaneous Notes * [place] Conversion Note - Jimbo ProviderMD - 12/08/2020 4:12 AM CDT Patient Education Materials Follows: documented in this encounter Plan of Treatment Not on file documented as of this encounter Visit Diagnoses Not on filedocumented in this encounter
--- OUTSIDE RECORDS SUMMARY | 2024-10-20 01:54 | XMS_ITS | Encounter Summary ---
Author Organization [employer] ([place], [place], [place], [place]) Address [address] [place] [address] Care Team Providers Care Thermodynamics Teacher Name Role Phone Unavailable Primary Care Provider Unavailabl e Encounter Details Date Type Department Care Team (Late st Contact Info) Description 11/25/2020 Transcribed Document [facility] [place] [facility] [place] [address] ProviderJimbo MD [address] [place] [address] Social History Tobacco Use Types [...] Cerner Conversion Note - Jimbo ProviderMD - 11/25/2020 1:40 AM CDT Admission Data, OB Entered On: 11/25/2020 1:45 EDT Performed On: 11/25/2020 1:40 EDT by Sylwia Ba RN-PATIENT CARE BEDSIDE NON-EXEMPT Advance Directive Patient has Advance Directive *Q : No, patient refuses Advance Directive information Sylwia Ba RN-PATIENT CARE BEDSIDE NON-EXEMPT - 11/25/2020 1:40 EDT Height and Weight Height Source : Stated Height Entry Format : [place] Height, Feet : 5 ft(Converted to: 152 cm, 60 Inch) Clinical Height : 157.48 cm Height, Inches : 2 Inch(Converted to: 0 ft 2 Inch, 5.08 cm) Weight Source : Standing scale Weight Entry Format : [place] Weight, Pounds : 156 lb Clinical Dosing Weight : 70.91 kg Body Surface Area (BSA) : 1.72 m2 Body Mass Index : 28.6 kg/m2 (HI) [place] Body Weight (IBW) : 49.73 kg Sylwia Ba RN-PATIENT CARE [facility] NON-EXEMPT - 11/25/2020 1:40 EDT Health Histories Smoking Status : Former smoker, quit more than 30 days ago Smokeless Tobacco Status : Former smokeless tobacco user, quit more than 30 days ago Sylwia Ba RN-PATIENT CARE [facility] NON-EXEMPT - 11/25/2020 1:40 EDT Social History (As Of: 11/25/2020 01:45:41 EDT) Influenza Vaccine Asmt, Adult Previous Vaccines from Immunization Schedule : No qualifying data available. Influenza Immunization, Current Season : Outside of influenza season Sylwia Ba RN-PATIENT CARE [facility] NON-EXEMPT - 11/25/2020 1:40 EDT Pneumococcal Vaccine Previous Vaccines from Immunization Schedule : No qualifying data available. Pneumonia Immunization Received : No Pneumococcal Risk Assessment < Age 65 : None Sylwia Ba RN-PATIENT CARE [facility] NON-EXEMPT - 11/25/2020 1:40 EDT Order Details Transport Mode Order Detail : Ambulatory Isolation Precautions Order Detail : Standard Precautions Order Detail : 1 IV Order Detail : 0 Oxygen Order Detail : 0 Nurse Collect Order Detail : 1 Lift/Transfer : Independent Central Line Order Detail : No Room Service : Appropriate Arterial Line : No Patient Needs Meds Crushed/Liquid : No Sylwia Ba RN-PATIENT CARE [facility] NON-EXEMPT - 11/25/2020 1:40 EDT Vital Measurements Temperature Source : Oral Temperature Mode : Fahrenheit Temperature, Fahrenheit : 98.5 Deg F Clinical Temperature, C : 36.9 Deg C Pulse Method : Non-Invasive BP Device Peripheral Pulse Rate : 87 bpm Respiratory Rate : 20 Breaths/Min Blood Pressure Location : Arm, left upper Blood Pressure Position : Sitting Systolic Blood Pressure : 114 mmHg Diastolic Blood Pressure : 74 mmHg Sylwia Ba RN-PATIENT CARE [facility] NON-EXEMPT - 11/25/2020 1:40 EDT Infectious Disease History Does patient have symptoms of COVID-19? : No Has the Patient Been Tested for COVID-19 in the last 14 days? : No, Patient stated Does the Patient state known exposure to a COVID-19 positive case in the last 14 days? : No Patient Vaccinated for COVID-19 : Not vaccinated Does Patient want a COVID-19 Vaccine? : No Sylwia Ba RN-PATIENT CARE [facility] NON-EXEMPT - 11/25/2020 1:40 EDT Infectious Disease Risk Screening Grid Cough < 2 wks of unknown origin : NO Cough > 2 weeks : NO Blood in Sputum : NO Fever or self-reported Fever : NO Rash of unknown origin : NO Headache : NO Stiff neck : NO Night Sweats : NO Unexplained Weight Loss : NO Diarrhea (3 episode per day) : NO Sylwia Ba RN-PATIENT CARE [facility] NON-EXEMPT - 11/25/2020 1:40 EDT Physical contact outside [place] in the last 30 days : No Hospitalized in Foreign Country : No Infectious Disease History : None INF Disease TB Screening Calc : 0 INF Disease Recent Travel Calc : 0 Sylwia Ba RN-PATIENT CARE [facility] NON-EXEMPT - 11/25/2020 1:40 EDT [place] Suicide Severity Rating Scale (C-SSRS) CSSRS Past Month Wish to be : Yes CSSRS Past Month Suicidal Thoughts : Yes CSSRS Past Month Suicide Method : Yes CSSRS Past Month Idea, Intent No Plan : No CSSRS Past Month Suicide With Plan : No CSSRS Lifetime Suicide Behavior : Yes YES, was this within the past 3 months? : Yes Suicide Severity Rating Score : 16 Suicide Severity Rating : High Sylwia Ba RN-PATIENT CARE [facility] NON-EXEMPT - 11/25/2020 1:40 EDT documented in this encounter Plan of Treatment Not on file documented as of this encounter Visit Diagnoses Not on filedocumented in this encounter
--- OUTSIDE RECORDS SUMMARY | 2024-10-20 01:54 | XMS_ITS | Encounter Summary ---
Author Organization [employer] ([place], [place], [place], [place]) Address [address] [place] [address] Care Team Providers Care Continuous Improvement Facilitator Name Role Phone Unavailable Primary Care Provider Unavailabl e Encounter Details Date Type Department Care Team (Late st Contact Info) Description 08/03/2020 Transcribed Document [facility] [place] Family [place] [facility] [place] [address] ProviderJimbo MD [address] [place] [address] Social History Tobacco Use Types [...] Cerner Conversion Note - Jimbo ProviderMD - 08/03/2020 2:24 AM CDT Patient Education Materials Follows:and Gynecology Second Trimester of The second trimester is from week 14 through week 27 (month 4 through 6). This is often the time in that you feel your best. Often times, morning sickness has lessened or quit. You may have more energy, and you may get hungry more often. Your unborn baby is growing rapidly. At the end of the sixth month, he or she is about 9 inches long and weighs about 1? pounds. You will likely feel the baby move between 18 and 20 weeks of . Follow these instructions at home: Medicines ??? Take eoyv-vdu-sribipt and prescription medicines only as told by your doctor. Some medicines are safe and some medicines are not safe during . ??? Take a vitamin that contains at least 600 micrograms (mcg) of folic acid. ??? If you have trouble pooping (constipation), take medicine that will make your stool soft (stool softener) if your doctor approves. Eating and drinking ??? Eat regular, healthy meals. ??? Avoid raw meat and uncooked cheese. ??? If you get low calcium from the food you eat, talk to your doctor about taking a daily calcium supplement. ??? Avoid foods that are high in fat and sugars, such as fried and sweet foods. ??? If you feel sick to your stomach (nauseous) or throw up (vomit): ? Eat 4 or 5 small meals a day instead of 3 large meals. ? Try eating a few soda crackers. ? Drink liquids between meals instead of during meals. ??? To prevent constipation: ? Eat foods that are high in fiber, like fresh fruits and vegetables, whole grains, and beans. ? Drink enough fluids to keep your pee (urine) clear or pale yellow. Activity ??? Exercise only as told by your doctor. Stop exercising if you start to have cramps. ??? Do not exercise if it is too hot, too humid, or if you are in a place of great height (high altitude). ??? Avoid heavy lifting. ??? Wear low-heeled shoes. Sit and stand up straight. ??? You can continue to have sex unless your doctor tells you not to. Relieving pain and discomfort ??? Wear a good support bra if your breasts are tender. ??? Take warm water baths (sitz baths) to soothe pain or discomfort caused by hemorrhoids. Use hemorrhoid cream if your doctor approves. ??? Rest with your legs raised if you have leg cramps or low back pain. ??? If you develop puffy, bulging veins (varicose veins) in your legs: ? Wear support hose or compression stockings as told by your doctor. ? Raise (elevate) your feet for 15 minutes, 3?4 times a day. ? Limit salt in your food. care ??? Write down your questions. Take them to your visits. ??? Keep all your visits as told by your doctor. This is important. Safety ??? Wear your seat belt when driving. ??? Make a list of emergency phone numbers, including numbers for family, friends, the hospital, and police and fire departments. General instructions ??? Ask your doctor about the right foods to eat or for help finding a counselor, if you need these services. ??? Ask your doctor about local classes. Begin classes before month 6 of your . ??? Do not use hot tubs, steam rooms, or saunas. ??? Do not douche or use tampons or scented sanitary pads. ??? Do not cross your legs for long periods of time. ??? Visit your dentist if you have not done so. Use a soft toothbrush to brush your teeth. Floss gently. ??? Avoid all smoking, herbs, and alcohol. Avoid drugs that are not approved by your doctor. ??? Do not use any products that contain nicotine or tobacco, such as cigarettes and e-cigarettes. If you need help quitting, ask your doctor. ??? Avoid cat litter boxes and soil used by cats. These carry germs that can cause defects in the baby and can cause a loss of your baby (miscarriage) or stillbirth. Contact a doctor if: ??? You have mild cramps or pressure in your lower belly. ??? You have pain when you pee (urinate). ??? You have bad smelling fluid coming from your vagina. ??? You continue to feel sick to your stomach (nauseous), throw up (vomit), or have watery poop (diarrhea). ??? You have a nagging pain in your belly area. ??? You feel dizzy. Get help right away if: ??? You have a fever. ??? You are leaking fluid from your vagina. ??? You have spotting or bleeding from your vagina. ??? You have severe belly cramping or pain. ??? You lose or gain weight rapidly. ??? You have trouble catching your breath and have chest pain. ??? You notice sudden or extreme puffiness (swelling) of your face, hands, ankles, feet, or legs. ??? You have not felt the baby move in over an hour. ??? You have severe headaches that do not go away when you take medicine. ??? You have trouble seeing. Summary ??? The second trimester is from week 14 through week 27 (months 4 through 6). This is often the time in that you feel your best. ??? To take care of yourself and your unborn baby, you will need to eat healthy meals, take medicines only if your doctor tells you to do so, and do activities that are safe for you and your baby. ??? Call your doctor if you get sick or if you notice anything unusual about your . Also, call your doctor if you need help with the right food to eat, or if you want to know what activities are safe for you. This information is not intended to replace advice given to you by your health care provider. Make sure you discuss any questions you have with your health care provider. Document Revised: 06/27/2019 Document Reviewed: 04/10/2017 Client Outlook Patient Education ? 2020 [employer]. Electronically signed by Mark Tang Conversion Soft Work Wrapper Layer And Examiner Cerner at 07/03/2022 6:42 PM CDT documented in this encounter Plan of Treatment Not on file documented as of this encounter Visit Diagnoses Not on filedocumented in this encounter
--- OUTSIDE RECORDS SUMMARY | 2024-10-20 01:54 | XMS_ITS | Encounter Summary ---
Author Organization [employer] ([place], [place], [place], [place]) Address [address] [place] [address] Care Team Providers Care Collar Separator Name Role Phone Unavailable Primary Care Provider Unavailabl e Encounter Details Date Type Department Care Team (Late st Contact Info) Description 12/11/2020 Transcribed Document [facility] [place] [facility] [place] [address] ProviderJimbo MD [address] [place] [address] Social History Tobacco Use Types Packs/Day Years Used Date Smoking Tobacco: Never Assessed Comments Unknown Sex and Gender Information Value Date Recorded Sex Assigned at Female 09/13/2021 5:08 PM CDT Legal Sex Female 5:08 PM CDT Gender Identity Female 09/13/2021 5:08 PM CDT Sexual Orientation Not on file documented as of this encounter Miscellaneous Notes * Cerner Conversion Note - Jimbo Ruiz MD - 12/11/2020 1:34 PM CDT Patient Education Materials Follows:and Gynecology Care After Vaginal Delivery This sheet gives you information about how to care for yourself from the time you deliver your baby to up to 6?12 weeks after delivery ( period). Your health [...] For most women, lochia stops completely by 4?6 weeks after delivery. Vaginal bleeding can vary [...] are not , your period should return 6?8 weeks after delivery. If you are feeding [...] (hemorrhoids), try taking a warm sitz bath 2?3 times a day. A sitz bath is [...] work with your health care provider or salon sales consultant. ??? If you are not : [...] methods of control (contraception). Medicines ??? Take wpsi-tom-daweken and prescription medicines only as told by [...] provider for a checkup within the first 3?6 weeks after delivery. Contact a health care [...] right after you deliver your up to 6?12 weeks after delivery is called the period. [...] provider. Document Revised: 03/08/2018 Document Reviewed: 12/17/2017 ElseDriverdo Patient Education ? 2020 [employer] Baby Blues The period begins right after [...] usually go away on their own in 1?2 weeks. Social support is often all that [...] Avoid alcohol. ??? Ask for help with kit assembler, cooking, grocery shopping, or running errands. Do not try to do everything yourself. Consider hiring a diversional therapist's assistant to help. This is a professional who [...] things you are grateful for. ??? Take qfrg-mfn-avclila and prescription medicines only as told by [...] provider. Document Revised: 06/27/2019 Document Reviewed: 05/01/2017 Elsevier Patient Education ? 2020 [employer] and Mastitis Mastitis is inflammation of [...] Fever. ??? Rapid pulse. Symptoms usually last 2?5 days. Breast pain and redness are at [...] these instructions at home: Medicines ??? Take xedn-gsk-ldtzssf and prescription medicines only as told by [...] with your health care provider or specialist (salon sales consultant) for treatment. General instructions ??? Drink [...] provider. Document Revised: 01/13/2020 Document Reviewed: 01/13/2020 [employer] Patient Education ? 2020 [employer]. Choosing to breastfeed is one of the [...] are also at lower risk for sudden infant syndrome (SIDS). ??? Nutrients in breast milk are better able to meet your baby?s needs compared to infant formula. ??? Breast milk improves your baby's [...] well away from your nipple and your baby?s mouth. ??? Stroke your baby's lips gently [...] common for your baby to suck about 2?3 minutes in order to start the flow [...] outward (flanged). ??? Swallowing heard between every 3?4 sucks once your milk has started to [...] your finger into the corner of your baby?s mouth to break the suction and place [...] have increased in firmness, weight, and size 1?3 hours after feeding. ??? Breasts that are softer immediately after . ??? Increased milk volume, as well as a change in milk consistency and color by the fifth day of . ??? Nipples that are not sore, cracked, or bleeding. Signs that your baby is getting enough milk ??? Wetting at least 1?2 diapers during the first 24 hours after . ??? Wetting at least 5?6 diapers every 24 hours for the first week after . The urine should be clear or pale yellow by the age of 5 days. ??? Wetting 6?8 diapers every 24 hours as your baby [...] of life. ??? Average weight gain of 4?7 oz (113?198 g) per week after the age of [...] smacking lips, cooing, sighing, or squeaking. ??? Rbke-pu-jylll movements and sucking on fingers or hands. [...] of age or younger) may breastfeed every 1?3 hours. ??? Newborns should not go without [...] able to be present during feedings. Your salon sales consultant can help you find a method [...] (sports bras). ??? Air-dry your nipples for 3?4 minutes after each feeding. ??? Use only [...] tender to the touch. Engorgement peaks within 3?5 days after you give . The following [...] Leave the ice on for 20 minutes, 2?3 times a day. ??? Make sure that your baby is latched on and positioned properly while . If engorgement persists after 48 hours of following these recommendations, contact your health care provider or a salon sales consultant. Overall health care recommendations while ??? Eat 3 healthy meals and 3 snacks every day. Well-nourished mothers who are need an additional 450?500 calories a day. You can meet this [...] provider before taking any medicines. These include fwea-kpz-rmxvjwb and prescription medicines as well as vitamins [...] Summary ??? offers many health benefits for and mothers. ??? Try to breastfeed your when he or she shows early signs [...] Talk with your health care provider or salon sales consultant if you have questions or you face problems as you breastfeed. This information is not intended to replace advice given to you by your health care provider. Make sure you discuss any questions you have with your health care provider. Document Revised: 05/30/2018 Document Reviewed: 04/06/2017 ScrollMotion Patient Education ? 2020 [employer]. documented in this encounter Plan of Treatment Not on file documented as of this encounter Visit Diagnoses Not on filedocumented in this encounter
--- OUTSIDE RECORDS SUMMARY | 2024-10-20 01:54 | XMS_ITS | Encounter Summary ---
Author Organization [employer] ([place], [place], [place], [place]) Address [address] [place] [address] Care Team Providers Care Manager Learning Name Role Phone Unavailable Primary Care Provider Unavailabl e Encounter Details Date Type Department Care Team (Late st Contact Info) Description 08/03/2020 Transcribed Document [facility] [place] [address] ProviderJimbo MD [address] [place] [phone] Social History Tobacco Use Types Packs/Day Years [...] Conversion Note - Historical ProviderMD - 08/03/2020 2:47 AM CDT Nursing Discharge Summary Entered On: 08/03/2020 2:47 EDT Performed On: 08/03/2020 2:47 EDT by nAjelica Voss Discharge Documentation Discharge Date/Time : 08/03/2020 2:47 EDT Patient Disposition, General : Discharge Discharge To : Home with ambulatory/outpatient follow-up Mode Of Departure, General Discharge : Ambulatory Accompanied By, Discharge : Mother IV Discontinued : Not applicable Personal Belongings With Patient : No personal belongings to return Pt's Own Supply of Medications Returned : No patient supply of medications to return Prescriptions Given to Patient : No Medications Given to Patient : No Work/school Release Given : Yes Worker's Compensation Paperwork Completed : No Anjelica Voss - 08/03/2020 2:47 EDT Electronically signed by Clyde [facility] Conversion Reed Man Cerner at 07/03/2022 6:18 PM CDT documented in this encounter Plan of Treatment Not on file documented as of this encounter Visit Diagnoses Not on filedocumented in this encounter
--- OUTSIDE RECORDS SUMMARY | 2024-10-20 01:54 | XMS_ITS | Encounter Summary ---
Author Organization [employer] ([place], [place], [place], [place]) Address [address] [place] [address] Care Team Providers Care Independent Jeweler Name Role Phone Unavailable Primary Care Provider Unavailabl e Encounter Details Date Type Department Care Team (Late st Contact Info) Description 12/11/2020 Transcribed Document [facility] [place] [facility] [place] [address] ProviderJimbo MD [address] [place] [id number] Social History Tobacco Use Types Packs/Day Years [...] Conversion Note - Historical ProviderMD - 12/11/2020 1:34 PM CDT Stroke/Warfarin Instructions Entered On: 12/11/2020 13:34 EDT Performed On: 12/11/2020 13:34 EDT by MYRTLE ACOSTA Stroke/Warfarin Instructions Stroke/TIA Discharge Ins : N/A Warfarin Discharge Ins : N/A MYRTLE ACOSTA - 12/11/2020 13:34 EDT documented in this encounter Plan of Treatment Not on file documented as of this encounter Visit Diagnoses Not on filedocumented in this encounter
--- OUTSIDE RECORDS SUMMARY | 2024-10-20 01:54 | XMS_ITS | Encounter Summary ---
Author Organization [employer] ([place], [place], [place], [place]) Address [address] [place] [address] Care Team Providers Care Surgical Scheduler Name Role Phone Unavailable Primary Care Provider Unavailabl e Encounter Details Date Type Department Care Team (Late st Contact Info) Description 08/03/2020 Transcribed Document [facility] [place] Family [place] [facility] [place] [address] ProviderJimbo MD [address] [place] [address] Social History Tobacco Use Types [...] Conversion Note - Jimbo ProviderMD - 08/03/2020 2:48 AM CDT [place] [id number] GRACE ARDON :2005 Visit Time:08/03/2020 Your Visit Summary Your Care Team Admitting Physician - SULTANA DE ANDA DO Attending Physician - SULTANA DE ANDA DO Referring Physician - JESSENIA, SELF REFERRED Your Diagnosis Spotting during in second trimester 21 weeks gestation of Viable in second trimester Discharge Vitals Temperature 36.9 ??C Respiratory Rate 18 Blood Pressure 109/63 What to do next Instructions From Your Care Team Discharge Follow Up Instructions: Activity: Discharge Activity: Activity as tolerated Diet: Discharge Diet: Resume usual diet as tolerated Follow-Up Appointments Follow Up with DE ANDA, SULTANA, DO When Within 2 to 3 days Comments Call for follow up appointment Where: [address] [facility] [address] [place] [address]- Medications What How Much When Instructions Next [...] your retail pharmacy guidance. Allergies No Known Medication Allergies Immunizations This Visit No Immunizations Found Education Materials Second Trimester of The second trimester is [...] about 9 inches long and weighs about 1?? pounds. You will likely feel the baby move between 18 and 20 weeks of . Follow these instructions at home: Medicines ??? Take vjsw-qll-xmebxjc and prescription medicines only as told by [...] Raise (elevate) your feet for 15 minutes, 3???4 times [...] provider. Document Revised: 06/27/2019 Document Reviewed: 04/10/2017 [email or web address] Patient Education ?? 2020 [employer]. Emergency Awareness and Preventative Care STROKE is [...] Assistance with quitting is available by contacting 1-406-RKWH-NOW. This is a free resource providing counseling, [...] This Visit (last charted value for your 08/03/2020 visit) Urinalysis 08/03/2020 2:01 AM Ur RBC: 0-2 /HPF Urine Nitrite: Negative Urine Leukocyte Esterase: Small Urine Appearance: Clear Urine Glucose Dipstick: Negative Urine Blood Dipstick: Negative Urine Urobilinogen Dipstick: 1.0 EU/dL -- Normal range between ( 0.2 and 1.0 ) Urine Protein Dipstick: Negative Ur Bacteria: 1+ Ur Squamous Epithelial Cells: 2-5 /HPF Urine Color: Yellow Ur WBC: 2-5 /HPF Urine Ketones Dipstick: Negative Ur Mucous: Trace Urine pH Dipstick: 6.0 -- Normal range between ( 6.0 and 8.0 ) Urine Bilirubin Dipstick: Negative Urine Specific Killbuck: 1.018 -- Normal range between ( 1.005 and 1.030 ) Urine Type.: U CleanCatch Microbiology 08/03/2020 2:14 AM Specimen Type: Urine Toxicology 08/03/2020 2:01 AM UDS Amp: Negative UDS Shaniqua: Negative UDS Benzo: Negative UDS Taya: Negative UDS Meth: Negative UDS Opi: Negative UDS Oxy: Negative UDS PCP: Negative UDS TCA: Negative UDS THC: Negative Buprenorphine Screen, Urine: Negative Heroin Metab (6AM) by LC-MS/MS, Urine: Negative SpGravity, Urine: 1.016 Propoxyphene, Urine: Negative UDS pH: 6.5 UDS Creatinine, Toxicology: 72.9 mg/dL Patient Name:EVIE ARDONN ADDISON I have received and understand this information and was given the opportunity to ask questions. Patient/Chief Crew Scheduler Name: Patient/Chief Crew Scheduler Signature: Relationship to Patient: Clinician/Hospital Chief Crew Scheduler Signature: Date: Electronically signed by Clyde, [facility] Conversion Welder [employer] [place] at 07/03/2022 6:16 PM CDT documented in this encounter Plan of Treatment Not on file documented as of this encounter Visit Diagnoses Not on filedocumented in this encounter
--- OUTSIDE RECORDS SUMMARY | 2024-10-20 01:54 | XMS_ITS | Encounter Summary ---
Author Organization [employer] ([place], [place], [place], [place]) Address [address] [place] [address] Care Team Providers Care High School Mathematics Teacher Name Role Phone Unavailable Primary Care Provider Unavailabl e Encounter Details Date Type Department Care Team (Late st Contact Info) Description 08/03/2020 Transcribed Document [facility] [place] Medicine [facility] [place] [address] ProviderJimbo MD [address] [place] [address] Social History Tobacco Use Types [...] Conversion Note - Historical ProviderMD - 08/03/2020 2:48 AM CDT [address] [address] Visit Date/Time: 08/03/2020 02:48:44 GRACE ARDON The above patient was seen in the hospital today and needs to be excused from work/school until Return to Work/School Date: documented in this encounter Plan of Treatment Not on file documented as of this encounter Visit Diagnoses Not on filedocumented in this encounter
--- OUTSIDE RECORDS SUMMARY | 2024-10-20 01:54 | XMS_ITS | Encounter Summary ---
Author Organization [employer] ([place], [place], [place], [place]) Address [address] [place] [address] Care Team Providers Care Dairy Nutritionist Name Role Phone Unavailable Primary Care Provider Unavailabl e Encounter Details Date Type Department Care Team (Late st Contact Info) Description 11/25/2020 Transcribed Document [facility] [place] [facility] [place] [address] ProviderJimbo MD [address] [place] [phone] Social History Tobacco Use Types Packs/Day Years [...] Conversion Note - Jimbo ProviderMD - 11/25/2020 5:12 AM CDT Nursing Discharge Summary Entered On: 11/25/2020 5:13 EDT Performed On: 11/25/2020 5:12 EDT by Sylwia Ba RN-PATIENT CARE BEDSIDE NON-EXEMPT Discharge Documentation Discharge Date/Time : 11/25/2020 5:15 EDT Patient Disposition, General : Discharge Discharge To : Home with ambulatory/outpatient follow-up Mode Of Departure, General Discharge : Ambulatory, Private vehicle Accompanied By, Discharge : Significant other IV Discontinued : Not applicable Personal Belongings With Patient : Yes Pt's Own Supply of Medications Returned : No patient supply of medications to return Prescriptions Given to Patient : No Medications Given to Patient : No Discharge Instructions Reviewed With, Opportunity For Questions Given : Patient, Significant other Patient Education Completed : Yes Teaching Method : Explanation Teaching Evaluation : Verbalizes understanding Sylwia Ba RN-PATIENT CARE BEDSIDE NON-EXEMPT - 11/25/2020 5:12 EDT Electronically signed by Clyde [facility] Conversion Fumigator And Sterilizer Cerner at 07/03/2022 6:24 PM CDT documented in this encounter Plan of Treatment Not on file documented as of this encounter Visit Diagnoses Not on filedocumented in this encounter
--- OUTSIDE RECORDS SUMMARY | 2024-10-20 01:54 | XMS_ITS | Encounter Summary ---
Author Organization [employer] ([place], [place], [place], [place]) Address [address] [place] [address] Care Team Providers Care Rock Crusher Name Role Phone Unavailable Primary Care Provider Unavailabl e Encounter Details Date Type Department Care Team (Late st Contact Info) Description 12/08/2020 Transcribed Document [facility] Family Medicine [facility] [place] [address] ProviderJimbo MD [address] [place] [address] Social History Tobacco Use Types [...] Conversion Note - Historical ProviderMD - 12/08/2020 12:03 AM CDT Admission Data, OB Entered On: 12/08/2020 0:07 EDT Performed On: 12/08/2020 0:03 EDT by Cassia Nava Advance Directive Patient has Advance Directive *Q : No, patient refuses Advance Directive information Cassia Nava - 12/08/2020 0:03 EDT Height and Weight Height Source : Stated Height Entry Format : [place] Height, Feet : 5 ft(Converted to: 152 cm, 60 Inch) Clinical Height : 157.48 cm Height, Inches : 2 Inch(Converted to: 0 ft 2 Inch, 5.08 cm) Weight Source : Standing scale Weight Entry Format : [place] Weight, Pounds : 160 lb Clinical Dosing Weight : 72.73 kg Body Surface Area (BSA) : 1.74 m2 Body Mass Index : 29.3 kg/m2 (HI) [place] Body Weight (IBW) : 49.73 kg Cassia Nava 12/08/2020 0:03 EDT Health Histories Smoking Status : Never (less than 100 in lifetime; none in last 30 days) Smokeless Tobacco Status : Never Cassia Nava 12/08/2020 0:03 EDT Social History (As Of: 12/08/2020 00:07:54 EDT) Anemia Management Care Prior to 32 wks? : Prior to 32 wks Received Iron Transufsion : Unknown Cassia Nava 12/08/2020 0:03 EDT Gestational Age Gestational Age Person Gestational Age At : 39 weeks 6 days Method : Comment : Tetanus Immunization Status Previous Tetanus Immunizations : No qualifying data available. Tetanus Immunization : Less than 5 years Cassia Nava 12/08/2020 0:03 EDT Influenza Vaccine Asmt, Adult Previous Vaccines from Immunization Schedule : No qualifying data available. Influenza Immunization, Current Season : Outside of influenza season Cassia Nava 12/08/2020 0:03 EDT Pneumococcal Vaccine Previous Vaccines from Immunization Schedule : No qualifying data available. Pneumonia Immunization Received : No Pneumococcal Risk Assessment < Age 65 : None Cassia Nava 12/08/2020 0:03 EDT Order Details Transport Mode Order Detail : Ambulatory Isolation Precautions Order Detail : Standard Precautions Order Detail : 1 IV Order Detail : 0 Oxygen Order Detail : 0 Nurse Collect Order Detail : 1 Lift/Transfer : Independent Central Line Order Detail : No Room Service : Appropriate Arterial Line : No Patient Needs Meds Crushed/Liquid : No Cassia Nava 12/08/2020 0:03 EDT Vital Measurements Temperature Source : Oral Temperature Mode : Fahrenheit Temperature, Fahrenheit : 98.3 Deg F Clinical Temperature, C : 36.8 Deg C Pulse Method : Non-Invasive BP Device Peripheral Pulse Rate : 102 bpm (HI) Pulse Rhythm : Regular Respiratory Rate : 16 Breaths/Min Blood Pressure Location : Arm, right upper Blood Pressure Source : Non-Invasive BP Device Blood Pressure Position : Sitting Systolic Blood Pressure : 117 mmHg Diastolic Blood Pressure : 60 mmHg Cassia Nava 12/08/2020 0:03 EDT Infectious Disease History Does patient have symptoms of COVID-19? : No Has the Patient Been Tested for COVID-19 in the last 14 days? : No, Patient stated Does the Patient state known exposure to a COVID-19 positive case in the last 14 days? : No Patient Vaccinated for COVID-19 : Not vaccinated Does Patient want a COVID-19 Vaccine? : No Cassia Nava 12/08/2020 0:03 EDT Infectious Disease Risk Screening Grid Cough < 2 wks of unknown origin : NO Cough > 2 weeks : NO Blood in Sputum : NO Fever or self-reported Fever : NO Rash of unknown origin : NO Headache : NO Stiff neck : NO Night Sweats : NO Unexplained Weight Loss : NO Diarrhea (3 episode per day) : NO Cassia Nava 12/08/2020 0:03 EDT Patient Masked? : Yes Physical contact outside [place] in the last 30 days : No Hospitalized in Foreign Country : No Infectious Disease History : None INF Disease TB Screening Calc : 0 INF Disease Recent Travel Calc : 0 Cassia Nava 12/08/2020 0:03 EDT [place] Suicide Severity Rating Scale (C-SSRS) CSSRS Past Month Wish to be : No CSSRS Past Month Suicidal Thoughts : No CSSRS Lifetime Suicide Behavior : No Suicide Severity Rating Score : 0 Suicide Severity Rating : No Additional Care Required at this time Cassia Nava Lane 12/08/2020 0:03 EDT documented in this encounter Plan of Treatment Not on file documented as of this encounter Visit Diagnoses Not on filedocumented in this encounter
--- OUTSIDE RECORDS SUMMARY | 2024-10-20 01:54 | XMS_ITS | Encounter Summary ---
Author Organization [employer] ([place], [place], [place], [place]) Address [address] [place] [address] Care Team Providers Care Meter Reader Chief Name Role Phone Unavailable Primary Care Provider Unavailabl e Encounter Details Date Type Department Care Team (Late st Contact Info) Description 12/10/2020 Transcribed Document [facility] [place] [facility] [place] [facility] [place] [address] ProviderJimbo MD [address] [place] [address] Social History Tobacco Use Types [...] Conversion Note - Jimbo ProviderMD - 12/10/2020 10:05 AM CDT UM Authorization Entered On: 12/10/2020 10:05 EDT Performed On: 12/10/2020 10:05 EDT by RACHEAL SCHWARTZ RN-Utilization Review Primary Insurance Authorization Authorization and Policy Numbers : Insurance 1 Health Plan: [employer] Policy Number: [id number] Authorization Number: Insurance Primary Name : [place] Authorization Status-Primary : No action required Authorization Number-Primary : auto 2/4 Number of Days Authorized-Primary : 1 Day(s) Authorized Service Begin Date-Primary : 12/09/2020 EDT Authorized Service End Date-Primary : 12/10/2020 EDT Historical Authorization Comments-Primary : No Authorization Comments Found RACHEAL SCHWARTZ RN-Utilization Review - 12/10/2020 10:05 EDT documented in this encounter Plan of Treatment Not on file documented as of this encounter Visit Diagnoses Not on filedocumented in this encounter
--- OUTSIDE RECORDS SUMMARY | 2024-10-20 01:55 | XMS_ITS | Encounter Summary ---
Author Organization [employer] ([place], [place], [place], [place]) Address [address] [place] [address] Care Team Providers Care Creative Consultant Name Role Phone Unavailable Primary Care Provider Unavailabl e Encounter Details Date Type Department Care Team (Late st Contact Info) Description 11/27/2020 Transcribed Document [facility] Family [facility] [place] [address] ProviderJimbo MD [address] [place] [id number] Social History Tobacco Use Types Packs/Day Years Used Date Smoking Tobacco: Never Assessed Comments Unknown Sex and Gender Information Value Date Recorded Sex Assigned at Female 09/13/2021 5:08 PM CDT Legal Sex Female 5:08 PM CDT Gender Identity Female 09/13/2021 5:08 PM CDT Sexual Orientation Not on file documented as of this encounter Miscellaneous Notes * Cerner Conversion Note - Jimbo ProviderMD - 11/27/2020 11:59 PM CDT Nursing Discharge Summary Entered On: 11/28/2020 0:02 EDT Performed On: 11/27/2020 23:59 EDT by Bre Hinton RN Discharge Documentation Discharge Date/Time : 11/27/2020 0:05 EDT Patient Disposition, General : Discharge Discharge [...] Education Completed : Yes Teaching Method : Demonstration, Explanation Teaching Evaluation : Verbalizes understanding Bre Hinton RN - 11/27/2020 23:59 EDT documented in this encounter Plan of Treatment Not on file documented as of this encounter Visit Diagnoses Not on filedocumented in this encounter
--- OUTSIDE RECORDS SUMMARY | 2024-10-20 01:55 | XMS_ITS | Encounter Summary ---
Author Organization [employer] ([place], [place], [place], [place]) Address [address] [place] [address] Care Team Providers Care Rating Examiner Name Role Phone Unavailable Primary Care Provider Unavailabl e Encounter Details Date Type Department Care Team (Late st Contact Info) Description 11/27/2020 Transcribed Document [facility] Family Medicine [facility] [place] [address] ProviderJimbo MD [address] [place] [address] Social History Tobacco Use Types [...] Cerner Conversion Note - Historical ProviderMD - 11/27/2020 10:19 PM CDT Admission Data, OB Entered On: 11/27/2020 22:23 EDT Performed On: 11/27/2020 22:19 EDT by Bre Hinton RN Advance Directive Patient has Advance Directive *Q : No, patient refuses Advance Directive information Bre Hinton RN - 11/27/2020 22:19 EDT Height and Weight Height Source : Measured Height Entry Format : [place] Height, Feet : 5 ft(Converted to: 152 cm, 60 Inch) Clinical Height : 157.48 cm Height, Inches : 2 Inch(Converted to: 0 ft 2 Inch, 5.08 cm) Weight Source : Standing scale Weight Entry Format : [place] Weight, Pounds : 156 lb Clinical Dosing Weight : 70.91 kg Body Surface Area (BSA) : 1.72 m2 Body Mass Index : 28.6 kg/m2 (HI) [place] Body Weight (IBW) : 49.73 kg Bre Hinton RN - 11/27/2020 22:19 EDT Health Histories Smoking Status : Former smoker, quit more than 30 days ago Smokeless Tobacco Status : Never Bre Hinton RN - 11/27/2020 22:19 EDT Social History (As Of: 11/27/2020 22:23:10 EDT) Anemia Management Care Prior to 32 wks? : Prior to 32 wks Hct <30% at 24-32 wks gest : No Received Iron Transufsion : No Bre Hinton RN - 11/27/2020 22:19 EDT Gestational Age Gestational Age Person Gestational Age At : 38 weeks 2 days Method : Comment : Tetanus Immunization Status Previous Tetanus Immunizations : No qualifying data available. Tetanus Immunization : Less than 5 years Bre Hinton RN - 11/27/2020 22:19 EDT Influenza Vaccine Asmt, Adult Previous Vaccines from Immunization Schedule : No qualifying data available. Influenza Immunization, Current Season : Unknown Inactivated Flu Vaccine Contraindications : No contraindications to inactivated influenza vaccine Transplant Workup/Recent Transplant : No Order for Influenza Vaccine : Declined Vaccination Bre Hinton RN - 11/27/2020 22:19 EDT Pneumococcal Vaccine Previous Vaccines from Immunization Schedule : No qualifying data available. Pneumonia Immunization Received : No Pneumococcal Risk Assessment < Age 65 : None Bre Hinton RN - 11/27/2020 22:19 EDT Order Details Transport Mode Order Detail : Ambulatory Isolation Precautions Order Detail : Standard Precautions Order Detail : 1 IV Order Detail : 0 Oxygen Order Detail : 0 Nurse Collect Order Detail : 0 Lift/Transfer : Independent Central Line Order Detail : No Room Service : Appropriate Arterial Line : No Patient Needs Meds Crushed/Liquid : No Bre Hinton RN - 11/27/2020 22:19 EDT Vital Measurements Temperature Source : Oral Temperature Mode : Fahrenheit Temperature, Fahrenheit : 98.3 Deg F Clinical Temperature, C : 36.8 Deg C Pulse Method : Non-Invasive BP Device Pulse Source : Brachial, Left Peripheral Pulse Rate : 86 bpm Pulse Rhythm : Regular Respiratory Rate : 16 Breaths/Min Blood Pressure Location : Arm, left upper Blood Pressure Source : Non-Invasive BP Device Blood Pressure Position : Sitting Systolic Blood Pressure : 126 mmHg Diastolic Blood Pressure : 82 mmHg Oxygen Therapy Mode : Room air Bre Hinton RN - 11/27/2020 22:19 EDT Infectious Disease History Does patient have symptoms of COVID-19? : No Has the Patient Been Tested for COVID-19 in the last 14 days? : No, Patient stated Does the Patient state known exposure to a COVID-19 positive case in the last 14 days? : No Patient Vaccinated for COVID-19 : Not vaccinated Does Patient want a COVID-19 Vaccine? : No Bre Hinton RN - 11/27/2020 22:19 EDT Infectious Disease Risk Screening Grid Cough < 2 wks of unknown origin : NO Cough > 2 weeks : NO Blood in Sputum : NO Fever or self-reported Fever : NO Rash of unknown origin : NO Headache : NO Stiff neck : NO Night Sweats : NO Unexplained Weight Loss : NO Diarrhea (3 episode per day) : NO Bre Hinton RN - 11/27/2020 22:19 EDT Physical contact outside [place] in the last 30 days : No Hospitalized in Foreign Country : No Infectious Disease History : None INF Disease TB Screening Calc : 0 INF Disease Recent Travel Calc : 0 Bre Hinton RN - 11/27/2020 22:19 EDT [place] Suicide Severity Rating Scale (C-SSRS) CSSRS Past Month Wish to be : No CSSRS Past Month Suicidal Thoughts : No CSSRS Lifetime Suicide Behavior : No Suicide Severity Rating Score : 0 Suicide Severity Rating : No Additional Care Required at this time Bre Hinton RN - 11/27/2020 22:19 EDT documented in this encounter Plan of Treatment Not on file documented as of this encounter Visit Diagnoses Not on filedocumented in this encounter
--- OUTSIDE RECORDS SUMMARY | 2024-10-20 01:55 | XMS_ITS | Encounter Summary ---
Author Organization [employer] ([place], [place], [place], [place]) Address [address] [place] [address] Care Team Providers Care Fruit I Farmworker Name Role Phone Unavailable Primary Care Provider Unavailabl e Encounter Details Date Type Department Care Team (Late st Contact Info) Description 11/27/2020 Transcribed Document [facility] [place] [facility] [place] [address] ProviderJimbo MD [address] [place] [address] Social History Tobacco Use Types [...] Jimbo ProviderMD - 11/27/2020 11:59 PM CDT Patient Education Materials Follows:and Gynecology Third Trimester of The third trimester of is from week 28 through week 40 (months 7 through 9). This trimester is when your unborn baby (fetus) is growing very fast. At the end of the ninth month, the unborn baby is about 20 inches long. It weighs about 6?10 pounds. Body changes during your third trimester During the third trimester, your body will continue to go through many changes. The changes vary from woman to woman. Physical changes ??? Your weight will continue to increase. You may gain 25?35 pounds (11?16 kg) by the end of the . [...] these instructions at home: Medicines ??? Take kjdy-cvf-hidxogt and prescription medicines only as told by [...] your pee (urine) pale yellow. ? Take ubrl-pcd-cuugejp or prescription medicines. ? Eat foods that [...] ? Raise your feet for 15 minutes, 3?4 times [...] baby. Where to find more information ??? [place] Association: americanpregnancy.org Contact a doctor if: ??? [...] provider. Document Revised: 11/25/2019 Document Reviewed: 11/25/2019 [employer] Patient Education ? 2020 [employer] documented in this encounter Plan of Treatment Not on file documented as of this encounter Visit Diagnoses Not on filedocumented in this encounter
--- OUTSIDE RECORDS SUMMARY | 2024-10-20 01:55 | XMS_ITS | Encounter Summary ---
Author Organization [employer] ([place], [place], [place], [place]) Address [address] [place] [address] Care Team Providers Care Weed Sprayer Name Role Phone Unavailable Primary Care Provider Unavailabl e Encounter Details Date Type Department Care Team (Late st Contact Info) Description 11/25/2020 Transcribed Document [facility] [place] [facility] [place] [address] ProviderJimbo MD [address] [place], [place] [id number] Social History Tobacco Use Types Packs/Day Years [...] Jimbo ProviderMD - 11/25/2020 5:12 AM CDT Stroke/Warfarin Instructions Entered On: 11/25/2020 5:12 EDT Performed On: 11/25/2020 5:12 EDT by Sylwia Ba RN-PATIENT CARE BEDSIDE NON-EXEMPT Stroke/Warfarin Instructions Stroke/TIA Discharge Ins : N/A Warfarin Discharge Ins : N/A Sylwia Ba RN-PATIENT CARE BEDSIDE NON-EXEMPT - 11/25/2020 5:12 EDT Electronically signed by Mark Tang Conversion General Utility Machine Operator [place] at 07/03/2022 6:40 PM CDT documented in this encounter Plan of Treatment Not on file documented as of this encounter Visit Diagnoses Not on filedocumented in this encounter
--- OUTSIDE RECORDS SUMMARY | 2024-10-20 01:55 | XMS_ITS | Clinical Summary ---
Author Organization [employer] ([place], [place], [place], [place]) Address [address] [place] [address] Care Team Providers Care Senior Product Consultant Name Role Phone Unavailable Primary Care [...]
--- OUTSIDE RECORDS SUMMARY | 2024-10-20 01:55 | XMS_ITS | Encounter Summary ---
Author Organization [employer] ([place], [place], [place], [place]) Address [address] [place] [address] Care Team Providers Care Merchandising Director Name Role Phone Unavailable Primary Care Provider Unavailabl e Encounter Details Date Type Department Care Team (Late st Contact Info) Description 11/25/2020 Transcribed Document [facility] [place] [facility] [place] [address] ProviderJimbo MD [address] [place] [address] Social History Tobacco Use Types [...] Conversion Note - Jimbo ProviderMD - 11/25/2020 5:13 AM CDT [place] [id number] GRACE ARDON :2005 Visit Time:11/25/2020 Your Visit Summary Your Care Team Admitting Physician - SULTANA DE ANDA, DO Attending Physician - SULTANA DE ANDA, DO Referring Physician - JESSENIA, SELF REFERRED Your Diagnosis False labor after 37 weeks of gestation without delivery These Are Your Goals No qualifying data available. Discharge Vitals Temperature 36.9 ??C Respiratory Rate 20 Blood Pressure 114/74 What to do next Instructions From Your Care Team Discharge Activity: Discharge Activity: Activity as tolerated Diet: Discharge Diet: Resume usual diet as tolerated Follow-Up Appointments Follow Up with SULTANA DE ANDA When Within 3 to 5 days Where: [address] [facility] [place] [employer] [address] [place] [id number] [facility] (1) Medications What How Much When Instructions [...] these instructions at home: Medicines ??? Take ceez-ink-mgxvfoj and prescription medicines only as told by [...] your pee (urine) pale yellow. ? Take efnk-ofz-sglvfqp or prescription medicines. ? Eat foods that [...] baby. Where to find more information ??? [place]oc[place] Association: americanpregnancy.org Contact a doctor if: ??? [...] provider. Document Revised: 11/25/2019 Document Reviewed: 11/25/2019 [employer] Patient Education ?? 2020 [employer] Abdominal Pain During Belly (abdominal) pain is common during . There are many possible causes. Most of the time, it is not a serious problem. Other times, it can be a sign that something is wrong with the . Always tell your doctor if you have belly pain. Follow these instructions at home: ??? Do not have sex or put anything in your vagina until your pain goes away completely. ??? Get plenty of rest until your pain gets better. ??? Drink enough fluid to keep your pee (urine) pale yellow. ??? Take qina-fnd-nqflzvm and prescription medicines only as told by your doctor. ??? Keep all follow-up visits as told by your doctor. This is important. Contact a doctor if: ??? Your pain continues or gets worse after resting. ??? You have lower belly pain that: ? Comes and goes at regular times. ? Spreads to your back. ? Feels like menstrual cramps. ??? You have pain or burning when you pee (urinate). Get help right away if: ??? You have a fever or chills. ??? You have vaginal bleeding. ??? You are leaking fluid from your vagina. ??? You are passing tissue from your vagina. ??? You throw up (vomit) for more than 24 hours. ??? You have watery poop (diarrhea) for more than 24 hours. ??? Your baby is moving less than usual. ??? You feel very weak or faint. ??? You have shortness of breath. ??? You have very bad pain in your upper belly. Summary ??? Belly (abdominal) pain is common during . There are many possible causes. ??? If you have belly pain during , tell your doctor right away. ??? Keep all follow-up visits as told by your doctor. This is important. This information is not intended to replace advice given to you by your health care provider. Make sure you discuss any questions you have with your health care provider. Document Revised: 06/23/2019 Document Reviewed: 06/07/2017 Else[employer] Patient Education ?? 2020 Elsevier Inc. [...] Assistance with quitting is available by contacting 7-575-KQNFNOW. This is a free resource providing counseling, support, and referral. Or you may contact your personal physician. [place] Suicide Prevention Lifeline: The National Suicide Prevention [...] CPR? There are two easy steps: Call 11-17- if you see a teen or adult [...] This Visit (last charted value for your 11/25/2020 visit) Urinalysis 11/25/2020 2:13 AM Ur RBC: 0-2 /HPF Urine Nitrite: Negative Urine Leukocyte Esterase: Small Urine Appearance: Clear Urine Glucose Dipstick: Negative Urine Blood Dipstick: Small Urine Urobilinogen Dipstick: 1.0 EU/dL -- Normal range between ( 0.2 and 1.0 ) Urine Protein Dipstick: Negative Ur Amorph: Trace Ur Bacteria: 2+ Ur Squamous Epithelial Cells: 0-2 /HPF Urine Color: Yellow Ur WBC: 5-10 /HPF Urine Ketones Dipstick: Negative Ur Mucous: Trace Urine pH Dipstick: 6.0 -- Normal range between ( 6.0 and 8.0 ) Urine Bilirubin Dipstick: Negative Urine Specific [place]: *1.026 -- Normal range between ( 1.005 and 1.030 ) Urine Type.: U CleanCatch Toxicology 11/25/2020 2:13 AM UDS Amp: Negative UDS Shaniqua: Negative UDS Benzo: Negative UDS Taya: Negative UDS Meth: Negative UDS Opi: Negative UDS Oxy: Negative UDS PCP: Negative UDS TCA: Negative UDS THC: Negative Buprenorphine Screen, Urine: Negative Heroin Metab (6AM) by LC-MS/MS, Urine: Negative SpGravity, Urine: 1.023 Propoxyphene, Urine: Negative UDS pH: 6.7 UDS Creatinine, Toxicology: 126.4 mg/dL Patient Name:GRACE ARDON ADDISON I have received and understand this information and was given the opportunity to ask questions. Patient/Upper Lining Cementer Name: Patient/Upper Lining Cementer Signature: Relationship to Patient: Clinician/Hospital Upper Lining Cementer Signature: Date: documented in this encounter Plan of Treatment Not on file documented as of this encounter Visit Diagnoses Not on filedocumented in this encounter
--- OUTSIDE RECORDS SUMMARY | 2024-10-20 01:55 | XMS_ITS | Encounter Summary ---
Author Organization [employer] ([place], [place], [place], [place]) Address [address] [place] [address] Care Team Providers Care Trail Construction Worker Name Role Phone Unavailable Primary Care Provider Unavailabl e Encounter Details Date Type Department Care Team (Late st Contact Info) Description 11/25/2020 Transcribed Document [facility] [place] [facility] [place] [facility] [place] [address] ProviderJimbo MD [address] [place] [address] Social History Tobacco Use Types [...] Jimbo ProviderMD - 11/25/2020 5:12 AM CDT Patient Education Materials Follows:and Gynecology Third [...] these instructions at home: Medicines ??? Take hvrc-brh-gikedtq and prescription medicines only as told by [...] your pee (urine) pale yellow. ? Take qwdm-hpv-jogcwmf or prescription medicines. ? Eat foods that [...] baby. Where to find more information ??? [place] Association: americanpregnancy.org Contact a doctor if: ??? [...] provider. Document Revised: 11/25/2019 Document Reviewed: 11/25/2019 [employer] Patient Education ? 2020 [employer] Abdominal Pain During Belly (abdominal) pain [...] your pee (urine) pale yellow. ??? Take nxkx-zlw-fbppjkq and prescription medicines only as told by [...] provider. Document Revised: 06/23/2019 Document Reviewed: 06/07/2017 [employer] Patient Education ? 2020 [employer] documented in this encounter Plan of Treatment Not on file documented as of this encounter Visit Diagnoses Not on filedocumented in this encounter
--- OUTSIDE RECORDS SUMMARY | 2024-10-20 01:55 | XMS_ITS | Encounter Summary ---
Author Organization [employer] ([place], [place], [place], [place]) Address [address] [place] [address] Care Team Providers Care Assistant Grocery Name Role Phone Unavailable Primary Care Provider Unavailabl e Encounter Details Date Type Department Care Team (Late st Contact Info) Description 11/27/2020 Transcribed Document [facility] [place] [address] ProviderJimbo MD [address], [place] [id number] Social History Tobacco Use Types Packs/Day Years [...] Conversion Note - Historical ProviderMD - 11/27/2020 11:59 PM CDT Stroke/Warfarin Instructions Entered On: 11/27/2020 23:59 EDT Performed On: 11/27/2020 23:59 EDT by Bre Hinton RN Stroke/Warfarin Instructions Stroke/TIA Discharge Ins : N/A Warfarin Discharge Ins : N/A Bre Hinton RN - 11/27/2020 23:59 EDT documented in this encounter Plan of Treatment Not on file documented as of this encounter Visit Diagnoses Not on filedocumented in this encounter
[2024-10-20 01:57] VITALS: BP 120/82; PULSE 79; O2SAT 99
--- NOTE | 2024-10-20 01:57 | PC.NURSE ---
Full set of labs collected via 20G Left AC, Urinalysis obtained.
[2024-10-20] MEDS: ACETAMINOPHEN 500MG TAB 1000 MG PO (02:06)
[2024-10-20] MEDS: LACTATED RINGERS 1000ML 1,000 ML 999 ML IV (02:07)
[2024-10-20] MEDS: PROCHLORPERAZINE 10MG/2ML VIAL 10 MG IV (02:09)
[2024-10-20] MEDS: KETOROLAC 30MG/ML VIAL 30 MG IV (02:09)
[2024-10-20] MEDS: MAGNESIUM SULFATE IN WATER 2 GM/50 ML PIGGYBACK IV (02:11)
--- NOTE | 2024-10-20 02:11 | ED_ITS ---
Discharge Plan Disposition Patient Disposition: Home, Self-Care Prescriptions Prescriptions: No Action [id number] acid 1 EACH tablet,chewable 1 tab PO DAILY acetaminophen 500 mg tablet 500 mg PO Q6H PRN (Reason: fever or pain) Qty: 30 3RF ferrous sulfate 325 mg (65 mg iron) tablet,delayed release (DR/EC) 325 mg PO DAILY Qty: 30 3RF sennosides [Senna Lax] 8.6 mg Tablet 8.6 mg PO BIDP PRN (Reason: Constipation) Qty: 60 2RF ibuprofen 800 mg tablet 800 mg PO Q8H PRN (Reason: pain) Qty: 60 2RF oxycodone 5 mg tablet 5 mg PO Q8H PRN (Reason: pain) Qty: 20 0RF simethicone 125 mg tablet 125 mg PO DAILY PRN (Reason: abdominal distention) Qty: 60 2RF cefdinir 300 mg capsule 300 mg PO BID 7 Days Qty: 14 0RF Referrals Follow up/Referrals: Provider,Referral, MD [Primary Care Provider, Medical] - See instructions Activity Restrictions/Add. Instructions Additional Instructions/Restrictions: Please follow-up with your primary care provider. Please return to the emergency department if you develop any new or worsening symptoms or become concerned for your health. Clinical Impressions Clinical Impression: Migraine Qualifiers: Migraine type: unspecified Status migrainosus presence: with status migrainosus Intractability: not intractable Qualified Code(s): G43.901 - Migraine, unspecified, not intractable, with status migrainosus Print Language Print Language: Yi Discharge ED Provider: Yosvany Martínez Adult HPI General Chief complaint: Headache Stated complaint: migraine Time Seen by Provider: 10/20/24 01:42 Mode of Arrival: Ambulatory Source of Information: Patient Description of Symptoms (Recalled from ER Triage Doc. by RN): pt c/o migraine of unknown onset. pt c/o n/v along with dizziness and blurred vision. History of Present Illness HPI narrative: 19-year-old female with history of migraines presents for headache. She reports this headache has been ongoing for the last week but got worse tonight and is associated with some dizziness and blurred vision and nausea vomiting. She reports that it is worse than her normal headache. She denies any concern for , reports she is currently menstruating. Related Data Home Medications ?Medication ?Instructions ?Recorded ?Confirmed vitamins no.115-iron 29 1 tab PO DAILY prenat al 07/20/20 11/12/23 mg-folic acid 1 mg chewable tablet Previous Rx's ?Medication ?Instructions ?Recorded acetaminophen 500 mg tablet 500 mg PO Q6H PRN fever or pain 11/15/23 #30 tabs ferrous sulfate 325 mg (65 mg 325 mg PO DAILY #30 tabs 11/15/23 iron) tablet,delayed release ibuprofen 800 mg tablet 800 mg PO Q8H PRN pain #60 t abs 11/15/23 oxycodone 5 mg tablet 5 mg PO Q8H PRN pain #20 tab s 11/15/23 sennosides 8.6 mg tablet (Senna 8.6 mg PO BIDP PRN Con stipation 11/15/23 Lax) #60 tabs simethicone 125 mg tablet 125 mg PO DAILY PRN abdomina l 11/15/23 distention #60 tabs cefdinir 300 mg capsule 300 mg PO BID 7 days #14 cap s 06/09/24 Allergies Allergy/AdvReac Type Severity Reaction Status Date / Time No Known Allergies Allergy Verified 11/09/23 09:17 [facility] Disclaimer: The information contained in this section may have been updated after the patient was seen, as this information can be updated by other users. Medical History (Updated 10/20/24 @ 03:05 by Yosvany Martínez MD) Family history of ischemic heart disease (IHD) Abnormal electrocardiogram [ECG] [EKG] No significant past medical history Surgical History No history of previous surgery Family History Other No significant family history Social History Smoking Status: Never smoker second hand exposure: Yes alcohol intake: never substance use type: marijuana current occupational status: unemployed Travel in the last 8 weeks?: None household members: family housing: house Have you lived/traveled outside US in past 30 days?: No Contact w/someone who lives/traveled outside US past 30 days?: No Exposure to someone with infectious disease in past 14 days?: No Do you have a fever (greater than 100.4 F or 38 C)?: No Have you tested positive for COVID-19?: No Exposed to someone with COVID-19 in past 14 days?: No Do you have a sore throat?: No Do you have a cough?: No Do you have any weakness?: No Do you have any diarrhea?: No Are you experiencing any unusual bleeding?: No Do you have any muscle aches/pain?: No Do you have any abdominal pain?: No Are you experiencing loss of taste or smell?: No Other Medical History Have you received the Flu Vaccine for this season: No Have you received the Pneumonia Vaccine: No ROS Obtained: Yes All systems reviewed & no additional complaints except as documented Physical Exam General General appearance: alert and in no apparent distress Head Head exam: atraumatic and normocephalic Eye Eye exam: Present normal appearance, PERRL and EOMI ENT ENT exam: Present normal oropharynx and normal external ear exam Neck Neck exam: Present normal inspection and full ROM Chest Chest inspection: Present normal inspection and symmetric chest wall rise; Absent tenderness Respiratory Respiratory exam: Present normal lung sounds bilaterally; Absent respiratory distress Cardiovascular Cardiovascular exam: Present regular rate and normal rhythm Abdominal Exam Abdominal exam: Present soft; Absent distention, tenderness or guarding Extremities Exam Extremities exam: Present normal inspection; Absent edema or joint swelling Back Exam Back exam: Present normal inspection; Absent tenderness Neurological Exam Neurological exam: Present alert and oriented X3; Absent motor sensory deficit Psychiatric Psychiatric exam: Present normal affect and normal mood Skin Skin exam: Present warm, dry and normal color Lymphatic Lymphatic Findings: no adenopathy Medical Decision Making Medical Records Medical records reviewed: Yes I reviewed the patient's medical records. Screening: Per USPSTF and CDC recommendations, given the prevalence of disease in our region, it is our hospital?s policy to screen for HIV and viral Hepatitis for all patients aged 18 and over and those with ongoing risk factors. Corey Inquiry Pt receiving controlled substance: No Corey was queried for this patient: No Vital Signs: 10/20/24 01:50 10/20/24 01:57 10/20/24 02:15 Temperature 99.0 F Temperature Source Oral Pulse Rate 79 71 Pulse Rate [Left Radial] 91 H Respiratory Rate 16 Blood Pressure 120/82 125/75 Blood Pressure [Left Arm] 136/95 H Blood Pressure Mean [Left Arm] 108 Blood Pressure Source [Left Arm] Automatic Cuff Blood Pressure Position 02 Sat by Pulse Oximetry 99 99 99 Oxygen Delivery Method Room Air 10/20/24 02:30 10/20/24 03:12 Temperature 97.8 F Temperature Source Oral Pulse Rate 64 56 L Pulse Rate [Left Radial] Respiratory Rate 16 Blood Pressure 111/68 108/72 L Blood Pressure [Left Arm] Blood Pressure Mean [Left Arm] Blood Pressure Source [Left Arm] Blood Pressure Position Sitting 02 Sat by Pulse Oximetry 98 Oxygen Delivery Method Room Air Lab Data Lab results reviewed: Yes I reviewed the patient's lab results. Orders (Tests/Meds): ED MEDICATIONS Discontinued Medications Generic Name Dose Route Start Last Admin Trade Name Freq PRN Reason Stop Dose Admin Acetaminophen 1,000 mg 10/20/24 01:56 10/20/24 02:06 Acetaminophen 500mg Tab PO 10/20/24 01:57 1,000 mg ONCE ONE Administration Dexamethasone 8 mg 10/20/24 03:03 10/20/24 03:06 Dexamethasone 4mg Tablet PO 10/20/24 03:04 8 mg ONCE ONE Administration Lactated Ringer's 1,000 mls @ 999 mls/hr 10/20/24 02:00 10/20/24 02:07 Lactated Ringer's 1000 Ml Bag IV 10/20/24 03:00 999 mls/hr .Q1H1M SUSAN Administration Magnesium Sulfate 2 gm in 50 mls @ 150 mls/hr 10/20/24 01:56 10/20/24 02:11 Magnesium Sulfate 2gm/50ml Premix IV 10/20/24 02:15 150 mls/hr ONCE ONE Administration Ketorolac Tromethamine 30 mg 10/20/24 01:56 10/20/24 02:09 Ketorolac 30mg/Ml Vial IV 10/20/24 01:57 30 mg ONCE ONE Administration Prochlorperazine Edisylate 10 mg 10/20/24 01:56 10/20/24 02:09 Prochlorperazine 10mg/2ml Vial IV 10/20/24 01:57 10 mg ONCE ONE Administration Sodium Chloride 10 ml 10/20/24 01:57 Sodium Chloride 0.9% 10ml Flush Syringe IV 11/19/24 01:56 NEEDED PRN Maintain IV Site ORDERS Category Date Time Status HIV Combo Stat Lab 10/20/24 01:47 Received Hepatitis C Ab Qual. W/ RFX Stat Lab 10/20/24 01:47 Received Medical Decision Narrative: 19-year-old female with history of chronic headaches presents for headache worse than normal. History was obtained via interactive discussion with patient. On arrival, patient is [afebrile, hemodynamically stable, satting appropriately, alert, oriented x4, GCS 15], moving all extremities spontaneously. Full physical exam performed and significant for no significant physical exam abnormalities. Differential includes but is not limited to migraine headache, tension headache, intracranial mass, thrombus,. Patient was given Tylenol and Toradol mag lipase Compazine for symptomatic management and correction of underlying abnormalities. On re-evaluation, patient reports symptomatic resolution Blood work and CT imaging was considered, but deemed unnecessary due to chronicity of symptoms. Given patient history, exam and workup, patient's presentation most likely repr esents migraine headache. Patient was discharged in stable condition after dose of dexamethasone. Return precautions given.. Procedures Risk/Benefits of Procedure(s) Were Explained: Yes Critical Care Critical Care Time Critical Care Time: No
[2024-10-20 02:15] VITALS: BP 125/75; PULSE 71; O2SAT 99
[2024-10-20 02:30] VITALS: BP 111/68; PULSE 64; O2SAT 98
[2024-10-20] MEDS: DEXAMETHASONE 4MG TABLET 8 MG PO (03:06)
[2024-10-20 03:12] VITALS: BP 108/72; PULSE 56; RESP 16; TEMP 36.6; O2SAT 98
[2024-10-20 04:14] LABS: Hepatitis C Ab Qual. W/ RFX NEGATIVE (Negative)
== END 2024-10-20 03:13 | disposition home or self-care (01) ==
LOC: ER 01:52
PROVIDERS: Emergency Provider Emergency Medicine
DX: G43.909 Migraine, unspecified, not intractable, without status migrainosus (principal)
CPT/HCPCS: 86803; 87389; 96361; 96365; 96375; 99284; J0780; J1885; J3475; J7120; J8540

== ENCOUNTER 2024-12-17 01:10 | Emergency (ER) | payer OTHER, SELFPAY ==
--- NOTE | 2024-12-17 01:10 | ECG_ITS ---
APPROVED REPORT Exam: Resting ECG HR:102 bpm ECG Measurements Heart Rate 102 AXES ND 143 P 34 QRSd 88 QRS 80 QT 340 T -10 QTc 399 Conclusion SINUS TACHYCARDIA NONSPECIFIC T-WAVE ABNORMALITY ABNORMAL ECG UNCONFIRMED REPORT Electronically signed by : ANYI MORALES, 12/18/2024 23:04:18
[2024-12-17 01:11] VITALS: BP 130/82; PULSE 112; RESP 20; TEMP 36.8; O2SAT 100; BMI 24.7
--- NOTE | 2024-12-17 01:11 | XR_ITS ---
PROCEDURE INFORMATION: Exam: XR Chest Exam date and time: 12/17/2024 1:55 AM Age: 19 years old Clinical indication: Pain; Chest pressure; Additional info: Chest pain TECHNIQUE: Imaging protocol: Radiologic exam of the chest. Views: 1 view. COMPARISON: CR XR CHEST PORTABLE 07/28/2023 1:09 AM FINDINGS: Lungs: Unremarkable. No consolidation. Pleural spaces: Unremarkable. No pleural effusion. No pneumothorax. Heart/Mediastinum: Unremarkable. No cardiomegaly. Bones/joints: Unremarkable. IMPRESSION: No acute findings.
--- NOTE | 2024-12-17 01:14 | ED_ITS ---
Discharge Plan Disposition Patient Disposition: Home, Self-Care Prescriptions Prescriptions: New ondansetron HCl 4 mg tablet 4 mg PO Q8H PRN (Reason: nausea and vomiting) 5 Days Qty: 30 0RF No Action [id number] acid 1 EACH tablet,chewable 1 tab PO DAILY acetaminophen 500 mg tablet 500 mg PO Q6H PRN (Reason: fever or pain) Qty: 30 3RF ferrous sulfate 325 mg (65 mg iron) tablet,delayed release (DR/EC) 325 mg PO DAILY Qty: 30 3RF sennosides [Senna Lax] 8.6 mg Tablet 8.6 mg PO BIDP PRN (Reason: Constipation) Qty: 60 2RF ibuprofen 800 mg tablet 800 mg PO Q8H PRN (Reason: pain) Qty: 60 2RF oxycodone 5 mg tablet 5 mg PO Q8H PRN (Reason: pain) Qty: 20 0RF simethicone 125 mg tablet 125 mg PO DAILY PRN (Reason: abdominal distention) Qty: 60 2RF cefdinir 300 mg capsule 300 mg PO BID 7 Days Qty: 14 0RF Referrals Follow up/Referrals: Ventura Watson MD [Staff Physician, General Surgery] - See instructions Provider,MD Tru [Primary Care Provider, Medical] - See instructions Activity Restrictions/Add. Instructions Additional Instructions/Restrictions: Please follow-up with your primary care provider and consider following up with our general surgery team for reevaluation of your gallbladder. Please return to the emergency department if you develop any new or worsening symptoms or become concerned for your health. Recommend Maalox/Tums, consider taking Pepcid [id number] as well. Clinical Impressions Clinical Impression: Acute epigastric pain, Cholelithiasis Print Language Print Language: Slovenian Discharge ED Provider: Yosvany Martínez General Adult HPI General Chief complaint: Chest Pain Stated complaint: chest pain Time Seen by Provider: 12/17/24 01:14 History of Present Illness HPI narrative: 19-year-old female without significant past medical history presents for epigastric abdominal pain/chest pain. She reports that she had an episode of vomiting prior to arrival. She denies significant shortness of breath. She reports that she had some issues with her gallbladder during her last year but she still has her gallbladder. She took Tylenol without improvement. Related Data Home Medications ?Medication ?Instructions ?Recorded ?Confirmed vitamins no.115-iron 29 1 tab PO DAILY prenat al 07/20/20 11/12/23 mg-folic acid 1 mg chewable tablet Previous Rx's ?Medication ?Instructions ?Recorded acetaminophen 500 mg tablet 500 mg PO Q6H PRN fever or pain 11/15/23 #30 tabs ferrous sulfate 325 mg (65 mg 325 mg PO DAILY #30 tabs 11/15/23 iron) tablet,delayed release ibuprofen 800 mg tablet 800 mg PO Q8H PRN pain #60 t abs 11/15/23 oxycodone 5 mg tablet 5 mg PO Q8H PRN pain #20 tab s 11/15/23 sennosides 8.6 mg tablet (Senna 8.6 mg PO BIDP PRN Con stipation 11/15/23 Lax) #60 tabs simethicone 125 mg tablet 125 mg PO DAILY PRN abdomina l 11/15/23 distention #60 tabs cefdinir 300 mg capsule 300 mg PO BID 7 days #14 cap s 06/09/24 ondansetron HCl 4 mg tablet 4 mg PO Q8H PRN nausea and 12/17/24 vomiting 5 days #30 tabs Allergies Allergy/AdvReac Type Severity Reaction Status Date / Time No Known Allergies Allergy Verified 11/09/23 09:17 [facility] Disclaimer: The information contained in this section may have been updated after the patient was seen, as this information can be updated by other users. Medical History (Updated 12/17/24 @ 02:50 by Yosvany Martínez MD) Family history of ischemic heart disease (IHD) Abnormal electrocardiogram [ECG] [EKG] No significant past medical history Surgical History No history of previous surgery Family History Other No significant family history Social History Smoking Status: Former smoker tobacco type: cigarettes packs per day: 1 second hand exposure: Yes alcohol intake: never substance use type: marijuana current occupational status: unemployed Travel in the last 8 weeks?: None household members: family housing: house Other Medical History Have you received the Flu Vaccine for this season: No Have you received the Pneumonia Vaccine: No ROS Obtained: Yes All systems reviewed & no additional complaints except as documented Physical Exam General General appearance: alert and in no apparent distress Head Head exam: atraumatic and normocephalic Eye Eye exam: Present normal appearance, PERRL and EOMI ENT ENT exam: Present normal oropharynx and normal external ear exam Neck Neck exam: Present normal inspection and full ROM Chest Chest inspection: Present normal inspection and symmetric chest wall rise; Absent tenderness Respiratory Respiratory exam: Present normal lung sounds bilaterally; Absent respiratory distress Cardiovascular Cardiovascular exam: Present regular rate and normal rhythm Abdominal Exam Abdominal exam: Present soft and tenderness (Mild, epigastric); Absent distention or guarding Extremities Exam Extremities exam: Present normal inspection; Absent edema or joint swelling Back Exam Back exam: Present normal inspection; Absent tenderness Neurological Exam Neurological exam: Present alert and oriented X3; Absent motor sensory deficit Psychiatric Psychiatric exam: Present normal affect and normal mood Skin Skin exam: Present warm, dry and normal color Lymphatic Lymphatic Findings: no adenopathy Medical Decision Making Medical Records Medical records reviewed: Yes I reviewed the patient's medical records. Screening: Per USPSTF and CDC recommendations, given the prevalence of disease in our region, it is our hospital?s policy to screen for HIV and viral Hepatitis for all patients aged 18 and over and those with ongoing risk factors. Corey Inquiry Pt receiving controlled substance: No Corey was queried for this patient: No Vital Signs: 12/17/24 01:11 12/17/24 02:54 Temperature 98.2 F 98.2 F Temperature Source Oral Pulse Rate 83 Pulse Rate [Right] 112 H Respiratory Rate 20 20 Blood Pressure 128/77 Blood Pressure [Right Arm] 130/82 Blood Pressure Mean [Right Arm] 98 02 Sat by Pulse Oximetry 100 Oxygen Delivery Method Room Air Room Air Lab Data Lab results reviewed: Yes I reviewed the patient's lab results. Lab Results 12/17/24 01:14: WBC 10.6, RBC 4.37, Hgb 12.0 L, Hct 36.2 L, MCV 82.8, MCH 27.5, MCHC 33.1, RDW 13.7, Plt Count 231, MPV 12.2 H, Neut % (Auto) 49.7, Lymph % (Auto) 38.8, Smith % (Auto) 5.8, Eos % (Auto) 4.9, Baso % (Auto) 0.6, Neut # (Auto) 5.3, Lymph # (Auto) 4.1, Smith # (Auto) 0.6, Eos # (Auto) 0.5 H, Baso # (Auto) 0.1, D-Dimer 0.71 H, Sodium 140, Potassium 3.6, Chloride 102, Carbon Dioxide 25, Anion Gap 16.6 H, BUN 10, Creatinine 0.70, Estimated Creat Clear 123, Estimated GFR 106, Est GFR ( Amer) 128, Glucose 91, Calcium 9.9, Total Bilirubin 0.5, AST 50 H, ALT 40, Alkaline Phosphatase 83, Troponin I < 0.01, Total Protein 8.2, Albumin 4.9, Globulin 3.3 H, Albumin/Globulin Ratio 1.5, Lipase 85, Serum HCG, Qual Negative 12/17/24 01:14 12/17/24 01:14 Orders (Tests/Meds): ED MEDICATIONS Discontinued Medications Generic Name Dose Route Start Last Admin Trade Name Freq PRN Reason Stop Dose Admin Acetaminophen 1,000 mg 12/17/24 01:11 12/17/24 01:18 Acetaminophen 500mg Tab PO 12/17/24 01:12 1,000 mg ONCE ONE Administration Belladonna Alkaloids 60 ml 12/17/24 01:11 12/17/24 01:18 Belladonna Alkaloids 60 Ml Ml PO 12/17/24 01:12 60 ml ONCE ONE Administration Iopamidol 75 ml 12/17/24 02:40 12/17/24 02:41 Iopamidol-370 (76%);100ml Bottle IV 12/17/24 02:41 75 ml ONCE ONE Administration Ondansetron HCl 4 mg 12/17/24 01:11 12/17/24 01:18 Ondansetron 4mg/2ml Vial IV 12/17/24 01:12 4 mg ONCE ONE Administration Sodium Chloride 10 ml 12/17/24 02:40 12/17/24 02:41 Sodium Chloride 0.9% 10ml Syr (Rad Only) IV 01/16/25 02:39 10 ml NEEDED PRN Administration Maintain IV Site ORDERS Category Date Time Status CT abdomen pelvis w con Stat Cat Scan 12/17/24 02:13 Completed CXR --portable [XR chest portable] Stat Exams 12/17/24 01:11 Completed CBC w/Auto Diff [Complete Blood Count Auto Diff] Stat Lab 12/17/24 01:14 Completed CMP [Comprehensive Metabolic Panel] Stat Lab 12/17/24 01:14 Completed D-Dimer Stat Lab 12/17/24 01:14 Completed HCG Qualitative, Serum Stat Lab 12/17/24 01:14 Completed Lipase Stat Lab 12/17/24 01:14 Completed Troponin I Q3H Lab 12/17/24 01:14 Completed ECG Data Tracing #1: I reviewed this ECG and interpreted as documented below: ECG initial impression date: 12/17/24 ECG initial impression time: 01:10 ECG normal with no acute: arrhythmias, ischemia, conduction abnormalities, chamber hypertrophy Arrhythmias present: sinus tach HEART Score History (anamnesis): Slightly suspicious ECG: Normal Age: <45 years Risk factors: No known risk factors Troponin: </= normal limit HEART Score: 0 Medical Decision Narrative: 19-year-old female with history of migraines, GERD, sludge in her gallbladder during her , presents with epigastric pain, some vomiting, starting this afternoon. History was obtained via interactive discussion with patient, family, chart. On arrival, patient is [afebrile, hemodynamically stable, satting appropriately, alert, oriented x4, GCS 15], moving all extremities spontaneously. Full physical exam performed and significant for mild epigastric discomfort Differential includes but is not limited to pancreatitis, gastritis, gastroenteritis, cholecystitis, PE, pneumonia. Patient was given Tylenol, GI cocktail, Zofran for symptomatic management and correction of underlying abnormalities. Workup initiated including CBC CMP D- dimer lipase test chest x-ray CT abdomen pelvis with IV contrast On re-evaluation, patient reports that her symptoms have a GI cocktail. Laboratory workup independently interpreted by me and significant for negative D-dimer by years criteria, no significant leukocytosis, minimally elevation in AST. Imaging independently interpreted by me and significant for for lungs bilaterally, cholelithiasis without evidence of cholecystitis on CT. The small bowel does look thickened and a bit inflamed, likely consistent with enteritis.. See radiology read for full review of final results. CT PE was considered but deemed unnecessary given negative by years criteria. Given patient history, exam and workup, patient's presentation most likely represents gastroenteritis. These findings were communicated with patient and she was discharged in stable condition with return precautions. Encouraged to follow up with PCP/general surgery. Procedures Risk/Benefits of Procedure(s) Were Explained: Yes Critical Care Critical Care Time Critical Care Time: No
[2024-12-17] MEDS: ACETAMINOPHEN 500MG TAB 1000 MG PO (01:18)
[2024-12-17] MEDS: BELLADONNA ALKALOIDS 60 ML ML PO (01:18)
[2024-12-17] MEDS: ONDANSETRON 4MG/2ML VIAL 4 MG IV (01:18)
[2024-12-17 01:29] LABS: Hematocrit 36.2 % (37.0-47.0); Hemoglobin 12.0 g/dL (12.2-16.2); Immature Granulocytes % 0.2 %; Mean Corpuscular HGB Conc 33.1 g/dL (31.8-35.4); Mean Corpuscular Hemoglobin 27.5 pg (27.0-31.2); Mean Corpuscular Volume 82.8 fl (81-99); Nucleated Red Blood Cells % 0 %; Platelet Count 231 K/mm3 (142-424); Red Blood Count 4.37 M/mm3 (4.20-5.40); Red Cell Distribution Width-SD 41.1 fL; White Blood Count 10.6 K/mm3 (4.8-10.8)
--- OUTSIDE RECORDS SUMMARY | 2024-12-17 01:29 | XMS_ITS | Encounter Summary ---
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 Role Phone Unavailable Primary Care Provider Unavailabl e Encounter Details Date Type Department Care Team (Late st Contact Info) Description 08/03/2020 Transcribed Document [facility] [place] [facility] [place] [address] ProviderJimbo MD [address] [place] [phone] Social History Tobacco Use Types Packs/Day Years [...] EDT Performed On: 08/03/2020 2:47 EDT by Anjelica Voss Discharge Documentation Discharge Date/Time : 08/03/2020 [...] 08/03/2020 2:47 EDT Electronically signed by [facility] [employer] El[employer] Knitter Cerner at 07/03/2022 6:18 PM CDT documented in this encounter Plan of Treatment Not on file documented as of this encounter Visit Diagnoses Not on filedocumented in this encounter
--- OUTSIDE RECORDS SUMMARY | 2024-12-17 01:30 | XMS_ITS | Encounter Summary ---
Author Organization [employer] ([place], [place], [place], [place]) Address [address] [place] [address] Care Team Providers Care Tucking Machine Operator Name Role Phone Unavailable Primary Care Provider Unavailabl e Encounter Details Date Type Department Care Team (Late st Contact Info) Description 12/11/2020 Transcribed Document [facility] [place] [facility] [place] [address] ProviderJimbo MD [address] [place] [address] Social History Tobacco Use Types [...] work with your health care provider or device sales consultant. ??? If you are not [...] methods of control (contraception). Medicines ??? Take sfvd-qoc-vjdsxsa and prescription medicines only as told by [...] provider. Document Revised: 03/08/2018 Document Reviewed: 12/17/2017 ElseEdgeio Patient Education ? 2020 [employer]. Baby Blues The period begins right [...] Avoid alcohol. ??? Ask for help with vice president of development, cooking, grocery shopping, or running errands. Do not try to do everything yourself. Consider hiring a medical care administrator to help. This is a professional who [...] things you are grateful for. ??? Take azzm-vrp-hfduoqe and prescription medicines only as told by [...] Reviewed: 05/01/2017 Elsevier Patient Education ? 2020 [employer]. and Mastitis Mastitis is inflammation of [...] these instructions at home: Medicines ??? Take flbm-osf-ycktseb and prescription medicines only as told by [...] with your health care provider or specialist (device sales consultant) for treatment. General instructions ??? [...] provider. Document Revised: 01/13/2020 Document Reviewed: 01/13/2020 Spartoo Patient Education ? 2020 [employer]. Choosing to breastfeed is one of the [...] to meet your baby?s needs compared to formula. ??? Breast milk [...] smacking lips, cooing, sighing, or squeaking. ??? Jysk-ry-grlci movements and sucking on fingers or hands. [...] able to be present during feedings. Your device sales consultant can help you find a [...] contact your health care provider or a device sales consultant. Overall health care recommendations while [...] provider before taking any medicines. These include glck-jqg-fknrnov and prescription medicines as well as vitamins [...] Talk with your health care provider or device sales consultant if you have questions or you face problems as you breastfeed. This information is not intended to replace advice given to you by your health care provider. Make sure you discuss any questions you have with your health care provider. Document Revised: 05/30/2018 Document Reviewed: 04/06/2017 Spartoo Patient Education ? 2020 Pow[employer]on. documented in this encounter Plan of Treatment Not on file documented as of this encounter Visit Diagnoses Not on filedocumented in this encounter
--- OUTSIDE RECORDS SUMMARY | 2024-12-17 01:30 | XMS_ITS | Encounter Summary ---
Author Organization [employer] ([place], [place], [place], [place]) Address [address] [place] [address] Care Team Providers Care Utility Worker Roller Shop Name Role Phone Unavailable Primary Care Provider Unavailabl e Encounter Details Date Type Department Care Team (Late st Contact Info) Description 12/08/2020 Transcribed Document [facility] [place] [facility] [place] [address] ProviderJimbo MD [address] [place] [address] Social History Tobacco Use Types [...] Patient has follow-up office appointment today at [facility] with Dr. Rojas. Rx: r Second opinion recommendations: See [place] Progress Notes r BabyHugger Abdominal Support recommended Ending time: Total Isew-qb-Xmqz time: Signature: Procedure: NST Start time: End time: FM: good r reduced r none r Baseline:130 Variability:moderate Acceleration:to 170 Decelerationsnone Contractions:irregular Q 6-10-9 minutes : x Reactive NST ? Non-Reactive NST Category:__1_ Signature:Clovis Browne Electronically signed by Clyde [facility] Conversion Paleontology Teacher [place] at 07/03/2022 6:32 PM CDT documented in this encounter Plan of Treatment Not on file documented as of this encounter Visit Diagnoses Not on filedocumented in this encounter
--- OUTSIDE RECORDS SUMMARY | 2024-12-17 01:30 | XMS_ITS | Encounter Summary ---
Author Organization [employer] ([place], [place], [place], [place]) Address [address] [place] [address] Care Team Providers Care Material Lister Name Role Phone Unavailable Primary Care Provider Unavailabl e Encounter Details Date Type Department Care Team (Late st Contact Info) Description 12/08/2020 Transcribed Document [facility] [place] [facility] [place] [address] ProviderJimbo MD [address] [place] [address] Social History Tobacco Use Types [...] Source : Stated Height Entry Format : [place] Height, Feet : 5 ft(Converted to: 152 cm, 60 Inch) Clinical Height : 157.48 cm Height, Inches : 2 Inch(Converted to: 0 ft 2 Inch, 5.08 cm) Weight Source : Standing scale Weight Entry Format : [place] Weight, Pounds : 160 lb Clinical Dosing Weight : 72.73 kg Body Surface Area (BSA) : 1.74 m2 Body Mass Index : 29.3 kg/m2 (HI) [place] Body Weight (IBW) : 49.73 kg Cassia [...] : 0 Cassia Nava 12/08/2020 0:03 EDT [place] Suicide Severity Rating Scale (C-SSRS) CSSRS Past [...]
--- OUTSIDE RECORDS SUMMARY | 2024-12-17 01:30 | XMS_ITS | Encounter Summary ---
Author Organization [employer] ([place], [place], [place], [place]) Address [address] [place] [address] Care Team Providers Care Bridge Contractor Name Role Phone Unavailable Primary Care Provider Unavailabl e Encounter Details Date Type Department Care Team (Late st Contact Info) Description 12/10/2020 Transcribed Document [facility] [place] [facility] [place] [address] ProviderJimbo MD [address] [place] [address] Social History Tobacco Use Types [...] 1-Time, PRN Dermoplast 20% topical spray, 1 [place], Topical, Q4H, PRN ferrous sulfate, 325 mg= [...] 12/10/2020 04:00 EDT Electronically signed by Clyde, [facility] Conversion Char Filter Operator Cerner at 07/03/2022 6:24 PM CDT documented in this encounter Plan of Treatment Not on file documented as of this encounter Visit Diagnoses Not on filedocumented in this encounter
--- OUTSIDE RECORDS SUMMARY | 2024-12-17 01:30 | XMS_ITS | Encounter Summary ---
Author Organization [employer] ([place], [place], [place], [place]) Address [address] [place] [address] Care Team Providers Care Supervisor Channel Process Name Role Phone Unavailable Primary Care Provider Unavailabl e Encounter Details Date Type Department Care Team (Late st Contact Info) Description 11/28/2020 Transcribed Document [facility] [place] [address] ProviderJimbo MD [address] [place] [address] Social History Tobacco Use Types [...] Jimbo ProviderMD - 11/28/2020 12:02 AM CDT [place] [id number] GRACE ARDON :2005 Visit Time:11/27/2020 Your Visit [...] pain, fever or decreased movement. Where: [address] [id number]- [place] (1) Medications What How Much When Instructions [...] these instructions at home: Medicines ??? Take kbgv-ftk-zrhlbzh and prescription medicines only as told by [...] your pee (urine) pale yellow. ? Take uzyx-kwh-atdzggm or prescription medicines. ? Eat foods that [...] baby. Where to find more information ??? [place] Association: americanpregnancy.org Contact a doctor if: ??? [...] provider. Document Revised: 11/25/2019 Document Reviewed: 11/25/2019 ElseREEL Qualified Patient Education ?? 2020 allyve. Emergency Awareness and Preventative Care STROKE is [...] Assistance with quitting is available by contacting 1-936-FJYL-NOW. This is a free resource providing counseling, [...] ) Urine Bilirubin Dipstick: Negative Urine Specific [place]: 1.015 -- Normal range between ( 1.005 [...] was given the opportunity to ask questions. Patient/Front Desk Specialist Name: Patient/Front Desk Specialist Signature: Relationship to Patient: Clinician/Hospital Front Desk Specialist Signature: Date: Electronically signed by Clyde, [facility] Conversion Wheel Presser [place] at 07/03/2022 6:23 PM CDT documented in this encounter Plan of Treatment Not on file documented as of this encounter Visit Diagnoses Not on filedocumented in this encounter
--- OUTSIDE RECORDS SUMMARY | 2024-12-17 01:30 | XMS_ITS | Encounter Summary ---
Author Organization [employer] ([place], [place], [place], [place]) Address [address] [place] [address] Care Team Providers Care Pole Shaver Name Role Phone Unavailable Primary Care Provider Unavailabl e Encounter Details Date Type Department Care Team (Late st Contact Info) Description 12/11/2020 Transcribed Document [facility] [place] [facility] [place] [address] ProviderJimbo MD [address] [place], [place] [id number] Social History Tobacco Use Types Packs/Day Years [...] Pt reports she is currently residing with [facility] and his parents at this time at [address] [place] [address] [address] in [facility]. Prior to that she was living with her mother, Yeni, in [place]. She reports that she has been able [...]
--- OUTSIDE RECORDS SUMMARY | 2024-12-17 01:30 | XMS_ITS | Encounter Summary ---
Author Organization [employer] ([place], [place], [place], [place]) Address [address] [place] [address] Care Team Providers Care Crane Follower Name Role Phone Unavailable Primary Care Provider Unavailabl e Encounter Details Date Type Department Care Team (Late st Contact Info) Description 12/11/2020 Transcribed Document [facility] [place] [facility] [place] [address] ProviderJimbo MD [address] [place], [place] [id number] Social History Tobacco Use Types Packs/Day Years [...]
--- OUTSIDE RECORDS SUMMARY | 2024-12-17 01:30 | XMS_ITS | Encounter Summary ---
Author Organization [email or web address] ([place], [place], [place], [place]) Address [address] [place] [address] Care Team Providers Care Infectious Waste Technician Name Role Phone Unavailable Primary Care Provider Unavailabl e Encounter Details Date Type Department Care Team (Late st Contact Info) Description 11/25/2020 Transcribed Document [facility] [place] [facility] [place] [address] ProviderJimbo MD [address] [place] [id number] Social History Tobacco Use Types Packs/Day Years [...] 11/25/2020 5:12 EDT Electronically signed by Clyde [facility] Conversion Business Planner Cerner at 07/03/2022 6:24 PM CDT documented in this encounter Plan of Treatment Not on file documented as of this encounter Visit Diagnoses Not on filedocumented in this encounter
--- OUTSIDE RECORDS SUMMARY | 2024-12-17 01:30 | XMS_ITS | Encounter Summary ---
Author Organization [email or web address] ([place], [place], [place], [place]) Address [address] [place] [address] Care Team Providers Care Supplier Manager Name Role Phone Unavailable Primary Care Provider Unavailabl e Encounter Details Date Type Department Care Team (Late st Contact Info) Description 11/27/2020 Transcribed Document [facility] [place] [facility] [place] [address] ProviderJimbo MD [address] [place] [address] Social History Tobacco Use Types [...] Conversion Note - Jimbo ProviderMD - 11/27/2020 10:19 PM CDT Admission Data, OB Entered On: 11/27/2020 22:23 EDT Performed On: 11/27/2020 22:19 EDT by Bre Hinton RN Advance Directive Patient has Advance Directive *Q : No, patient refuses Advance Directive information Bre Hinton RN - 11/27/2020 22:19 EDT Height and Weight Height Source : Measured Height Entry Format : [place] Height, Feet : 5 ft(Converted to: 152 cm, 60 Inch) Clinical Height : 157.48 cm Height, Inches : 2 Inch(Converted to: 0 ft 2 Inch, 5.08 cm) Weight Source : Standing scale Weight Entry Format : [place] Weight, Pounds : 156 lb Clinical Dosing Weight : 70.91 kg Body Surface Area (BSA) : 1.72 m2 Body Mass Index : 28.6 kg/m2 (HI) [place] Body Weight (IBW) : 49.73 kg Bre [...] Bre Hinton RN - 11/27/2020 22:19 EDT [place] Suicide Severity Rating Scale (C-SSRS) CSSRS Past [...]
--- OUTSIDE RECORDS SUMMARY | 2024-12-17 01:30 | XMS_ITS | Encounter Summary ---
Author Organization [employer] ([place], [place], [place], [place]) Address [address] [place] [address] Care Team Providers Care Technical Support Consultant Name Role Phone Unavailable Primary Care Provider Unavailabl e Encounter Details Date Type Department Care Team (Late st Contact Info) Description 12/09/2020 Transcribed Document [facility] [place] [facility] [place] [address] ProviderJimbo MD [facility] [place] [address] Social History Tobacco Use Types [...] Source : Measured Height Entry Format : [place] Height, Feet : 5 ft(Converted to: 152 cm, 60 Inch) Clinical Height : 157.48 cm Height, Inches : 2 Inch(Converted to: 0 ft 2 Inch, 5.08 cm) Weight Source : Standing scale Weight Entry Format : [place] Weight, Pounds : 160 lb Clinical Dosing Weight : 72.73 kg Body Surface Area (BSA) : 1.74 m2 Body Mass Index : 29.3 kg/m2 (HI) [place] Body Weight (IBW) : 49.73 kg Rosi [...] Barnhart, Nurse RN - 12/09/2020 6:53 EDT [place] Suicide Severity Rating Scale (C-SSRS) CSSRS Past Month Wish to be : No CSSRS Past Month Suicidal Thoughts : No CSSRS Lifetime Suicide Behavior : No Suicide Severity Rating Score : 0 Suicide Severity Rating : No Additional Care Required at this time Rosi Barnhart Nurse RN - 12/09/2020 6:53 EDT Electronically signed by Eddie Tang Conversion Hospital Television Rental Clerk Cerner at 07/03/2022 6:41 PM CDT documented in this encounter Plan of Treatment Not on file documented as of this encounter Visit Diagnoses Not on filedocumented in this encounter
--- OUTSIDE RECORDS SUMMARY | 2024-12-17 01:30 | XMS_ITS | Clinical Summary ---
Author Organization [employer] ([place], [place], [place], [place]) Address [address] [place] [address] Care Team Providers Care Manager Culture Name Role Phone Unavailable Primary Care Provider [...]
--- OUTSIDE RECORDS SUMMARY | 2024-12-17 01:30 | XMS_ITS | Encounter Summary ---
Author Organization [employer] ([place], [place], [place], [place]) Address [address] [place] [address] Care Team Providers Care Auctioneer Tobacco Name Role Phone Unavailable Primary Care Provider Unavailabl e Encounter Details Date Type Department Care Team (Late st Contact Info) Description 12/09/2020 Transcribed Document [facility] [place] [facility] [address] ProviderJimbo MD [address] [place] [address] Social History Tobacco Use Types Packs/Day [...] of 8,9 at 1, 5 minutes respectively. Infant weight 3426 g. 2. An intact placenta [...] over an intact perineum. Apgars 8, 9. Infant weight 3426 g. Nuchal and body cord [...]
--- OUTSIDE RECORDS SUMMARY | 2024-12-17 01:30 | XMS_ITS | Encounter Summary ---
Author Organization [employer] ([place], [place], [place], [place]) Address [address] [place] [address] Care Team Providers Care Sizing Machine And Drier Operator Name Role Phone Unavailable Primary Care Provider Unavailabl e Encounter Details Date Type Department Care Team (Late st Contact Info) Description 12/11/2020 Transcribed Document [facility] [place] [facility] [place] [address] ProviderJimbo MD [address] [place] [id number] Social History Tobacco Use Types Packs/Day Years [...]
--- OUTSIDE RECORDS SUMMARY | 2024-12-17 01:30 | XMS_ITS | Encounter Summary ---
Author Organization [employer] ([place], [place], [place], [place]) Address [address] [place] [address] Care Team Providers Care Staff Submarine Warfare Officer Name Role Phone Unavailable Primary Care Provider Unavailabl e Encounter Details Date Type Department Care Team (Late st Contact Info) Description 11/27/2020 Transcribed Document [facility] [place] [facility] [place] [address] ProviderJimbo MD [address] [place] [id number] Social History Tobacco Use Types Packs/Day Years [...]
--- OUTSIDE RECORDS SUMMARY | 2024-12-17 01:30 | XMS_ITS | Encounter Summary ---
Author Organization [employer] ([place], [place], [place], [place]) Address [address] [place] [address] Care Team Providers Care User Experience Researcher Name Role Phone Unavailable Primary Care Provider Unavailabl e Encounter Details Date Type Department Care Team (Late st Contact Info) Description 12/10/2020 Transcribed Document [facility] [place] [facility] [place] [address] ProviderJimbo MD [address] [place], [place] [id number] Social History Tobacco Use Types Packs/Day Years [...] 1 Health Plan: ANTHEM HMOPPO Policy Number: [id number] Authorization Number: Insurance Primary Name : [place] Authorization Status-Primary : No action required Authorization [...]
--- OUTSIDE RECORDS SUMMARY | 2024-12-17 01:30 | XMS_ITS | Encounter Summary ---
Author Organization [employer] ([place], [place], [place], [place]) Address [address] [place] [address] Care Team Providers Care Park Services Specialist Name Role Phone Unavailable Primary Care Provider Unavailabl e Encounter Details Date Type Department Care Team (Late st Contact Info) Description 11/25/2020 Transcribed Document [facility] [place] [facility] [place] [address] ProviderJimbo MD [address] [place], [place] [address] Social History Tobacco Use Types Packs/Day Years [...] N/A Warfarin Discharge Ins : N/A Sylwia aB RN-PATIENT CARE BEDSIDE NON-EXEMPT - 11/25/2020 5:12 EDT documented in this encounter Plan of Treatment Not on file documented as of this encounter Visit Diagnoses Not on filedocumented in this encounter
--- OUTSIDE RECORDS SUMMARY | 2024-12-17 01:30 | XMS_ITS | Encounter Summary ---
Author Organization [employer] ([place], [place], [place], [place]) Address [address] [place] [address] Care Team Providers Care Foreign Languages Professor Name Role Phone Unavailable Primary Care Provider Unavailabl e Encounter Details Date Type Department Care Team (Late st Contact Info) Description 12/08/2020 Transcribed Document [facility] [place] [facility] [place] [address] ProviderJimbo MD [address] [place] [address] Social History Tobacco Use Types Packs/Day [...] 12/08/2020 4:12 EDT Electronically signed by Clyde [facility] Conversion Lumber Scaler Cerner at 07/03/2022 6:38 PM CDT documented in this encounter Plan of Treatment Not on file documented as of this encounter Visit Diagnoses Not on filedocumented in this encounter
--- OUTSIDE RECORDS SUMMARY | 2024-12-17 01:30 | XMS_ITS | Referral Summary ---
Author Organization [employer] ([place], [place], [place], [place]) Address [address] [place] [address] Care Team Providers Care Entertainment Dancer Name Role Phone Unavailable Primary Care Provider [...]
--- OUTSIDE RECORDS SUMMARY | 2024-12-17 01:30 | XMS_ITS | Encounter Summary ---
Author Organization [employer] ([place], [place], [place], [place]) Address [address] [place] [address] Care Team Providers Care Sticker Operator Name Role Phone Unavailable Primary Care Provider Unavailabl e Encounter Details Date Type Department Care Team (Late st Contact Info) Description 11/25/2020 Transcribed Document [facility] Family [facility] [place] [address] ProviderJimbo MD [address] [place] [address] Social History Tobacco Use Types [...] Jimbo ProviderMD - 11/25/2020 5:13 AM CDT [place] [id number] GRACE ARDON :2005 Visit Time:11/25/2020 Your Visit [...] Within 3 to 5 days Where: [address] [facility] [employer] [address] [place] [id number] [facility] (1) Medications What How Much [...] these instructions at home: Medicines ??? Take uwnr-mtr-srreeuu and prescription medicines only as told by [...] your pee (urine) pale yellow. ? Take zlmo-zla-slhjvjh or prescription medicines. ? Eat foods that [...] baby. Where to find more information ??? [place] Association: americanpregnancy.org Contact a doctor if: ??? [...] provider. Document Revised: 11/25/2019 Document Reviewed: 11/25/2019 Elsee[employer]ul[employer] Patient Education ?? 2020 [employer] Inc. Abdominal Pain During Belly (abdominal) pain [...] your pee (urine) pale yellow. ??? Take lypu-rms-hmzhlpc and prescription medicines only as told by [...] Assistance with quitting is available by contacting 4-473-SCLXNOW. This is a free resource providing counseling, support, and referral. Or you may contact your personal physician. [employer] Suicide Prevention Lifeline: The National Suicide Prevention [...] ) Urine Bilirubin Dipstick: Negative Urine Specific [place]: *1.026 -- Normal range between ( 1.005 [...] was given the opportunity to ask questions. Patient/Veneer Puller Name: Patient/Veneer Puller Signature: Relationship to Patient: Clinician/Hospital Veneer Puller Signature: Date: documented in this encounter Plan of Treatment Not on file documented as of this encounter Visit Diagnoses Not on filedocumented in this encounter
--- OUTSIDE RECORDS SUMMARY | 2024-12-17 01:30 | XMS_ITS | Encounter Summary ---
Author Organization [employer] ([place], [place], [place], [place]) Address [address] [place] [address] Care Team Providers Care Ladler Name Role Phone Unavailable Primary Care Provider Unavailabl e Encounter Details Date Type Department Care Team (Late st Contact Info) Description 11/27/2020 Transcribed Document [facility] [place] [facility] [place] [address] ProviderJimbo MD [address] [place] [address] Social History Tobacco Use Types [...] these instructions at home: Medicines ??? Take figs-kju-deefswr and prescription medicines only as told by [...] your pee (urine) pale yellow. ? Take faww-mfe-dgqgrel or prescription medicines. ? Eat foods that [...] baby. Where to find more information ??? Thai Association: americanpregnancy.org Contact a doctor if: ??? [...] provider. Document Revised: 11/25/2019 Document Reviewed: 11/25/2019 [employer] Solutions Patient Education ? 2020 [employer] Inc. documented in this encounter Plan of Treatment Not on file documented as of this encounter Visit Diagnoses Not on filedocumented in this encounter
--- OUTSIDE RECORDS SUMMARY | 2024-12-17 01:30 | XMS_ITS | Encounter Summary ---
Author Organization [employer] ([place], [place], [place], [place]) Address [address] [place] [address] Care Team Providers Care Transmission Worker Name Role Phone Unavailable Primary Care Provider Unavailabl e Encounter Details Date Type Department Care Team (Late st Contact Info) Description 08/03/2020 Transcribed Document [facility] [place] [facility] [place] [address] ProviderJimbo MD [address] [place] [address] Social History Tobacco Use Types [...] these instructions at home: Medicines ??? Take kudj-hkd-daxkxmh and prescription medicines only as told by [...] provider. Document Revised: 06/27/2019 Document Reviewed: 04/10/2017 [employer] Patient Education ? 2020 [employer]anta Inc. documented in this encounter Plan of Treatment Not on file documented as of this encounter Visit Diagnoses Not on filedocumented in this encounter
--- OUTSIDE RECORDS SUMMARY | 2024-12-17 01:30 | XMS_ITS | Encounter Summary ---
Author Organization [employer] ([place], [place], [place], [place]) Address [address] [place] [address] Care Team Providers Care Rn Informatics Name Role Phone Unavailable Primary Care Provider Unavailabl e Encounter Details Date Type Department Care Team (Late st Contact Info) Description 11/27/2020 Transcribed Document [facility] [place] [facility] [place] [address] ProviderJimbo MD [address] [place], [place] [id number] Social History Tobacco Use Types Packs/Day Years [...] Jimbo ProviderMD - 11/27/2020 11:59 PM CDT Stroke/Warfarin [...]
--- OUTSIDE RECORDS SUMMARY | 2024-12-17 01:30 | XMS_ITS | Encounter Summary ---
Author Organization [employer] ([place], [place], [place], [place]) Address [address] [place] [address] Care Team Providers Care Document Control Manager Name Role Phone Unavailable Primary Care Provider Unavailabl e Encounter Details Date Type Department Care Team (Late st Contact Info) Description 12/08/2020 Transcribed Document [facility] [place] [facility] [place] [address] ProviderJimbo MD [address] [place] [address] Social History Tobacco Use Types [...] Jimbo ProviderMD - 12/08/2020 4:15 AM CDT [place] [id number] GRACE ARDON :2005 Visit Time:12/07/2020 Your Visit [...] pain, fever or decreased movement. Where: [address] [facility] (1) Medications What How Much [...] with bowel movements. ??? Having practice contractions (Johan Carr contractions) that occur at irregular (unevenly [...] provider. Document Revised: 12/03/2017 Document Reviewed: 08/10/2017 [employer] Patient Education ?? 2020 [employer]. Emergency Awareness and Preventative Care STROKE is [...] Assistance with quitting is available by contacting 2-219-YNHT-NOW. This is a free resource providing counseling, [...] was given the opportunity to ask questions. Patient/Site Project Manager Name: Patient/Site Project Manager Signature: Relationship to Patient: Clinician/Hospital Site Project Manager Signature: Date: documented in this encounter Plan of Treatment Not on file documented as of this encounter Visit Diagnoses Not on filedocumented in this encounter
--- OUTSIDE RECORDS SUMMARY | 2024-12-17 01:30 | XMS_ITS | Encounter Summary ---
Author Organization [employer] ([place], [place], [place], [place]) Address [address] [place] [address] Care Team Providers Care Lineman Name Role Phone Unavailable Primary Care Provider Unavailabl e Encounter Details Date Type Department Care Team (Late st Contact Info) Description 12/08/2020 Transcribed Document [facility] [place] [facility] [place] [address] ProviderJimbo MD [address] [place] [id number] Social History Tobacco Use Types Packs/Day Years [...]
--- OUTSIDE RECORDS SUMMARY | 2024-12-17 01:30 | XMS_ITS | Encounter Summary ---
Author Organization [employer] ([place], [place], [place], [place]) Address [address] [place] [address] Care Team Providers Care Chemistry Intern Name Role Phone Unavailable Primary Care Provider Unavailabl e Encounter Details Date Type Department Care Team (Late st Contact Info) Description 12/09/2020 Transcribed Document [facility] [place] [address] ProviderJimbo [place] [address] Social History Tobacco Use Types [...] 2005 Associated Diagnoses: None Author: LAURITA SMART MD-RESAW OPERATOR Preprocedure diagnosis: 1. 15-year-old 1 at 40-0/7 weeks gestational age in active spontaneous labor 2. Teenage Postprocedure diagnosis: Same Procedure: nonstress test Findings: 120/reactive/no decels/moderate variability [place]: Contractions every 2-5 minutes Plan: Admit for labor documented in this encounter Plan of Treatment Not on file documented as of this encounter Visit Diagnoses Not on filedocumented in this encounter
--- OUTSIDE RECORDS SUMMARY | 2024-12-17 01:30 | XMS_ITS | Encounter Summary ---
Author Organization [employer] ([place], [place], [place], [place]) Address [address] [place] [address] Care Team Providers Care Ear Mold Laboratory Technician Name Role Phone Unavailable Primary Care Provider Unavailabl e Encounter Details Date Type Department Care Team (Late st Contact Info) Description 08/03/2020 Transcribed Document [facility] [place] [facility] [place] [address] ProviderJimbo MD [address] [place] [address] Social History Tobacco Use Types [...] Historical ProviderMD - 08/03/2020 2:48 AM CDT [address] [address] Visit Date/Time: 08/03/2020 02:48:44 GRACE ARDON The above patient was seen in the hospital today and needs to be excused from work/school until Return to Work/School Date: Electronically signed by Mark Tang Conversion Fiction And Nonfiction Prose Writer Charlotte at 07/03/2022 6:20 PM CDT documented in this encounter Plan of Treatment Not on file documented as of this encounter Visit Diagnoses Not on filedocumented in this encounter
--- OUTSIDE RECORDS SUMMARY | 2024-12-17 01:30 | XMS_ITS | Encounter Summary ---
Author Organization [employer] ([place], [place], [place], [place]) Address [address] [place] [address] Care Team Providers Care Lumber Handler Name Role Phone Unavailable Primary Care Provider Unavailabl e Encounter Details Date Type Department Care Team (Late st Contact Info) Description 12/11/2020 Transcribed Document [facility] [place] [facility] [place] [address] ProviderJimbo MD [address] [place] [address] Social History Tobacco Use Types [...] Jimbo ProviderMD - 12/11/2020 1:36 PM CDT [place] [id number] GRACE ARDON :2005 Visit Time:12/09/2020 Your Visit Summary Your Care Team Admitting Physician - SULTANA DE ANDA DO Attending Physician - SULTANA DE ANDA, Primary Care Physician - BETHANY RUELAS DR Referring Physician - JESSENIA, SELF REFERRED Your Diagnosis 40 weeks gestation of Depression during in third trimester High risk teen in third trimester (spontaneous vaginal delivery) These Are Your Goals Patient Discharge Goal Patient Discharge Goal: Home What to do next Instructions From Your Care Team You have an appointment at [facility] for counseling on Sunday, December 15 at 1:00 pm. Please arrive 30 minutes early to complete new patient paperwork. Address is in [facility] at [address] [facility] [facility], [place], [place]. Phone number is to change appointment or for 24 hour crisis line. Follow-Up Appointments Follow Up with SULTANA DE ANDA When Within 6 weeks Where: [address] [facility] [employer] [address] [place] [address]- Business (1) Medications What How Much When [...] work with your health care provider or contact center consultant. ??? If you are not : [...] methods of control (contraception). Medicines ??? Take mwha-raq-lwqulfn and prescription medicines only as told by [...] provider. Document Revised: 03/08/2018 Document Reviewed: 12/17/2017 ElseMeshify Patient Education ?? 2020 Ingen Technologies. Baby Blues The period begins right after [...] Avoid alcohol. ??? Ask for help with branch manager trainee, cooking, grocery shopping, or running errands. Do not try to do everything yourself. Consider hiring a corrosion engineer to help. This is a professional who [...] things you are grateful for. ??? Take cklt-nqg-tciqtmi and prescription medicines only as told by [...] provider. Document Revised: 06/27/2019 Document Reviewed: 05/01/2017 [employer] Patient Education ?? 2020 [employer]. and Mastitis Mastitis is inflammation of [...] these instructions at home: Medicines ??? Take qbze-fyf-rslbtmm and prescription medicines only as told by [...] with your health care provider or specialist (contact center consultant) for treatment. General instructions ??? Drink [...] provider. Document Revised: 01/13/2020 Document Reviewed: 01/13/2020 [employer] Patient Education ?? 2020 [employer]. Choosing to breastfeed is one of the [...] smacking lips, cooing, sighing, or squeaking. ??? Jmmw-mh-aetqe movements and sucking on fingers or hands. [...] able to be present during feedings. Your contact center consultant can help you find a method [...] contact your health care provider or a contact center consultant. Overall health care recommendations while ??? [...] provider before taking any medicines. These include yaqm-dmb-btfgpsx and prescription medicines as well as vitamins [...] Talk with your health care provider or contact center consultant if you have questions or you [...] Assistance with quitting is available by contacting 1-353-GJIP-NOW. This is a free resource providing counseling, support, and referral. Or you may contact your personal physician. [place] Suicide Prevention Lifeline: The National Suicide Prevention [...] range between ( 1.0 and 7.0 ) [place] #: 0.58 K/uL -- Normal range between ( 0.24 and 0.82 ) [place] #: 0.22 K/uL -- Normal range between ( 0.04 and 0.54 ) [place] %: 5.1 % -- Normal range between [...] ) Urine Bilirubin Dipstick: Negative Urine Specific [place]: 1.024 -- Normal range between ( 1.005 [...] was given the opportunity to ask questions. Patient/Procedure Analyst Name: Patient/Procedure Analyst Signature: Relationship to Patient: Clinician/Hospital Procedure Analyst Signature: Date: documented in this encounter Plan of Treatment Not on file documented as of this encounter Visit Diagnoses Not on filedocumented in this encounter
--- OUTSIDE RECORDS SUMMARY | 2024-12-17 01:30 | XMS_ITS | Encounter Summary ---
Author Organization [employer] ([place], [place], [place], [place]) Address [address] [place] [address] Care Team Providers Care Wire Machine Cutter Name Role Phone Unavailable Primary Care Provider Unavailabl e Encounter Details Date Type Department Care Team (Late st Contact Info) Description 08/03/2020 Transcribed Document [facility] [place] [facility] [place] [address] ProviderJimbo MD [address] [place] [address] Social History Tobacco Use Types [...] History none Social History Document (if any) Cultural/Restoration beliefs that would affect medical care: single, lives with mother Family History [place] Paper Stripper History negative Transfusion History none Lab Results [...] Protein Dipstick: NEGATIVE2 (08/03/20 02:01:00) Urine Specific [place]: 1.018 (08/03/20 02:01:00) Urine Type.: U CleanCatch (08/03/20 02:01:00) Urine Urobilinogen Dipstick: 1.0 (08/03/20 02:01:00) Electronic Monitoring FHR 140 by doppler documented in this encounter Plan of Treatment Not on file documented as of this encounter Visit Diagnoses Not on filedocumented in this encounter
--- OUTSIDE RECORDS SUMMARY | 2024-12-17 01:30 | XMS_ITS | Encounter Summary ---
Author Organization [employer] ([place], [place], [place], [place]) Address [address] [place] [address] Care Team Providers Care Room Attendants Name Role Phone Unavailable Primary Care Provider Unavailabl e Encounter Details Date Type Department Care Team (Late st Contact Info) Description 12/08/2020 Transcribed Document [facility] [place] [address] ProviderJimbo MD [address] [place] [address] Social History Tobacco Use Types [...]
--- OUTSIDE RECORDS SUMMARY | 2024-12-17 01:30 | XMS_ITS | Encounter Summary ---
Author Organization [employer] ([place], [place], [place], [place]) Address [address] [place] [address] Care Team Providers Care Domestic Travel Consultant Name Role Phone Unavailable Primary Care Provider Unavailabl e Encounter Details Date Type Department Care Team (Late st Contact Info) Description 12/11/2020 Transcribed Document [facility] [place] [address] ProviderJimbo MD [address] [place] [address] Social History Tobacco Use Types Packs/Day [...]
--- OUTSIDE RECORDS SUMMARY | 2024-12-17 01:30 | XMS_ITS | Encounter Summary ---
Author Organization [employer] ([place], [place], [place], [place]) Address [address] [place] [address] Care Team Providers Care Gift Officer Name Role Phone Unavailable Primary Care Provider Unavailabl e Encounter Details Date Type Department Care Team (Late st Contact Info) Description 11/25/2020 Transcribed Document [facility] [place] [facility] [place] [address] ProviderJimbo MD [address] [place] [address] Social History Tobacco Use Types [...] Source : Stated Height Entry Format : [place] Height, Feet : 5 ft(Converted to: 152 cm, 60 Inch) Clinical Height : 157.48 cm Height, Inches : 2 Inch(Converted to: 0 ft 2 Inch, 5.08 cm) Weight Source : Standing scale Weight Entry Format : [place] Weight, Pounds : 156 lb Clinical Dosing Weight : 70.91 kg Body Surface Area (BSA) : 1.72 m2 Body Mass Index : 28.6 kg/m2 (HI) [place] Body Weight (IBW) : 49.73 kg Sylwia Ba RN-PATIENT CARE [facility] NON-EXEMPT - 11/25/2020 1:40 EDT Health Histories Smoking Status : Former smoker, quit more than 30 days ago Smokeless Tobacco Status : Former smokeless tobacco user, quit more than 30 days ago Sylwia Ba RN-PATIENT CARE [facility] NON-EXEMPT - 11/25/2020 1:40 EDT Social History (As Of: 11/25/2020 01:45:41 EDT) Influenza Vaccine Asmt, Adult Previous Vaccines from Immunization Schedule : No qualifying data available. Influenza Immunization, Current Season : Outside of influenza season Sylwia Ba RN-PATIENT CARE [facility] NON-EXEMPT - 11/25/2020 1:40 EDT Pneumococcal Vaccine Previous Vaccines from Immunization Schedule : No qualifying data available. Pneumonia Immunization Received : No Pneumococcal Risk Assessment < Age 65 : None Sylwia Ba RN-PATIENT CARE [facility] NON-EXEMPT - 11/25/2020 1:40 EDT Order Details [...] Crushed/Liquid : No Sylwia Ba RN-PATIENT CARE [facility]-EXEMPT - 11/25/2020 1:40 EDT Vital Measurements [...] : 74 mmHg Sylwia Ba RN-PATIENT CARE [facility] NON-EXEMPT - 11/25/2020 1:40 EDT Infectious Disease [...] Vaccine? : No Sylwia Ba RN-PATIENT CARE [facility] NON-EXEMPT - 11/25/2020 1:40 EDT Infectious Disease [...] day) : NO Sylwia Ba RN-PATIENT CARE [facility] NON-EXEMPT - 11/25/2020 1:40 EDT Physical contact outside [place] in the last 30 days : No Hospitalized in Foreign Country : No Infectious Disease History : None INF Disease TB Screening Calc : 0 INF Disease Recent Travel Calc : 0 Sylwia Ba RN-PATIENT CARE [facility] NON-EXEMPT - 11/25/2020 1:40 EDT [place] Suicide Severity Rating Scale (C-SSRS) CSSRS Past [...] Rating : High Sylwia Ba RN-PATIENT CARE [facility] NON-EXEMPT - 11/25/2020 1:40 EDT documented in this encounter Plan of Treatment Not on file documented as of this encounter Visit Diagnoses Not on filedocumented in this encounter
--- OUTSIDE RECORDS SUMMARY | 2024-12-17 01:30 | XMS_ITS | Encounter Summary ---
Author Organization [employer] ([place], [place], [place], [place]) Address [address] [place] [address] Care Team Providers Care Thermometer Tester Name Role Phone Unavailable Primary Care Provider Unavailabl e Encounter Details Date Type Department Care Team (Late st Contact Info) Description 11/25/2020 Transcribed Document [facility] [place] [facility] [place] [address] ProviderJimbo MD [address] [place] [address] Social History Tobacco Use Types [...] these instructions at home: Medicines ??? Take prxn-vyg-ajgtore and prescription medicines only as told by [...] your pee (urine) pale yellow. ? Take yaww-trq-kgpsudh or prescription medicines. ? Eat foods that [...] baby. Where to find more information ??? [place] Association: americanpregnancy.org Contact a doctor if: ??? [...] provider. Document Revised: 11/25/2019 Document Reviewed: 11/25/2019 angelMD Patient Education ? 2020 angelMD Inc. Abdominal Pain During Belly (abdominal) pain [...] your pee (urine) pale yellow. ??? Take tqye-gsd-thpkqyk and prescription medicines only as told by [...] provider. Document Revised: 06/23/2019 Document Reviewed: 06/07/2017 ElseRadial Network Patient Education ? 2020 angelMD Inc. documented in this encounter Plan of Treatment Not on file documented as of this encounter Visit Diagnoses Not on filedocumented in this encounter
--- OUTSIDE RECORDS SUMMARY | 2024-12-17 01:30 | XMS_ITS | Encounter Summary ---
Author Organization [employer] ([place], [place], [place], [place]) Address [address] [place] [address] Care Team Providers Care Hand Screen Printer Name Role Phone Unavailable Primary Care Provider Unavailabl e Encounter Details Date Type Department Care Team (Late st Contact Info) Description 08/03/2020 Transcribed Document [facility] [place] [facility] [address] ProviderJimbo MD [address] [place] [address] Social History Tobacco Use Types [...] Jimbo ProviderMD - 08/03/2020 2:48 AM CDT [place] [id number] GRACE ARDON :2005 Visit Time:08/03/2020 Your Visit [...] Call for follow up appointment Where: [address] [facility] [address] [place] [address]- Medications What How Much When Instructions Next [...] these instructions at home: Medicines ??? Take ewbm-huo-ngujwti and prescription medicines only as told by [...] provider. Document Revised: 06/27/2019 Document Reviewed: 04/10/2017 [employer] Patient Education ?? 2020 [employer]. Emergency Awareness and Preventative Care STROKE is [...] Assistance with quitting is available by contacting 1-411-THZB-NOW. This is a free resource providing counseling, [...] ) Urine Bilirubin Dipstick: Negative Urine Specific [place]: 1.018 -- Normal range between ( 1.005 [...] was given the opportunity to ask questions. Patient/Sales Service Representative Name: Patient/Sales Service Representative Signature: Relationship to Patient: Clinician/Hospital Sales Service Representative Signature: Date: Electronically signed by Clyde, [facility] Conversion Master Ship Charlotte at 07/03/2022 6:16 PM CDT documented in this encounter Plan of Treatment Not on file documented as of this encounter Visit Diagnoses Not on filedocumented in this encounter
--- OUTSIDE RECORDS SUMMARY | 2024-12-17 01:30 | XMS_ITS | Encounter Summary ---
Author Organization [employer] ([place], [place], [place], [place]) Address [address] [place] [address] Care Team Providers Care Preventive Medicine Officer Name Role Phone Unavailable Primary Care Provider Unavailabl e Encounter Details Date Type Department Care Team (Late st Contact Info) Description 12/09/2020 Transcribed Document [facility] [place] [facility] [place] [address] ProviderJimbo MD [address] [place] [address] Social History Tobacco Use Types Packs/Day [...] - 12/09/2020 9:20 AM CDT Patient: GRACE CHILDRESS Age: 15 [...] Management from this point as per primary CANDLEMAKING LABORER. High risk teen in third trimester Orders: [...] Appearance CLEAR2 12/09/2020 07:40 EDT Urine Specific [place] 1.024 12/09/2020 07:40 EDT Urine pH Dipstick [...] UDS Amp AUNEG 12/09/2020 07:40 EDT UDS Shaniqua AUNEG 12/09/2020 07:40 EDT UDS Benzo AUNEG [...]
--- OUTSIDE RECORDS SUMMARY | 2024-12-17 01:30 | XMS_ITS | Encounter Summary ---
Author Organization [employer] ([place], [place], [place], [place]) Address [address] [place] [address] Care Team Providers Care Workers' Compensation Commissioner Name Role Phone Unavailable Primary Care Provider Unavailabl e Encounter Details Date Type Department Care Team (Late st Contact Info) Description 08/03/2020 Transcribed Document [facility] [place] [facility] [place] [address] ProviderJimbo MD [facility] [address] Social History Tobacco Use Types [...] Source : Stated Height Entry Format : [place] Height, Feet : 5 ft(Converted to: 152 cm, 60 Inch) Clinical Height : 157.48 cm Height, Inches : 2 Inch(Converted to: 0 ft 2 Inch, 5.08 cm) Weight Source : Stated [place] Body Weight (IBW) : 49.73 kg Anjelica Voss - 08/03/2020 1:25 EDT Health Histories Smoking Status : Never (less than 100 in lifetime; none in last 30 days) Smokeless Tobacco Status : Former smokeless tobacco user, quit more than 30 days ago Anjelica Voss 08/03/2020 1:25 EDT Social History (As Of: 08/03/2020 01:43:45 EDT) Estimated Weight Type of Weight Measurement Est : [place] Weight, est lb : 127 lb(Converted to: [...] None Anjelica V[address] Lane 08/03/2020 1:25 EDT [place] Suicide Severity Rating Scale (C-SSRS) CSSRS Past [...]
[2024-12-17 01:39] LABS: Alanine Aminotransferase 40 U/L (12-78); Albumin Level 4.9 g/dl (3.5-5.0); Albumin/Globulin Ratio 1.5 (1.1-1.8); Alkaline Phosphatase 83 U/L (38-126); Anion Gap 16.6 mEq/L (5-15); Aspartate Amino Transferase 50 U/L (14-36); Bilirubin,Total 0.5 mg/dl (0.2-1.3); Blood Urea Nitrogen 10 mg/dl (7-17); Calcium 9.9 mg/dl (8.4-10.2); Carbon Dioxide 25 mmol/L (22.0-30.0); Chloride 102 mmol/L (98-107); Creatinine Clearance Estimated 123 mL/min (50-200); Creatinine,Serum 0.70 mg/dl (0.52-1.04); Estimated Glomerular Filt Rate 106 ml/min (>60); GFR (African American) 128 ML/MIN (>60); Globulin 3.3 g/dL (1.3-3.2); Glucose 91 mg/dl (74-100); Lipase 85 U/L (23-300); Potassium 3.6 mmoL/L (3.5-5.1); Sodium 140 mmol/L (136-145); Total Protein,Serum 8.2 g/dl (6.3-8.2)
[2024-12-17 01:42] LABS: HCG Qualitative, Serum Negative (Negative)
[2024-12-17 01:43] LABS: D-Dimer 0.71 ug/mL (0.0-0.5)
[2024-12-17 01:54] LABS: Troponin I < 0.01 ng/ml (0.00-0.034)
--- NOTE | 2024-12-17 02:13 | CT_ITS ---
PROCEDURE INFORMATION: Exam: CT Abdomen And Pelvis With Contrast Exam date and time: 12/17/2024 2:35 AM Age: 19 years old Clinical indication: Abdominal pain; Epigastric; Additional info: Epigastric pain, pocus ruq non-diagnostic TECHNIQUE: Imaging protocol: Computed tomography of the abdomen and pelvis with contrast. Radiation optimization: All CT scans at this facility use at least one of these dose optimization techniques: automated exposure control; mA and/or kV adjustment per patient size (includes targeted exams where dose is matched to clinical indication); or iterative reconstruction. Contrast material: ISOVUE; Contrast volume: 75 ml; Contrast route: IV; COMPARISON: CT ABDOMEN PELVIS W CON 11/27/2021 12:41 AM FINDINGS: Liver: Normal. No mass. Gallbladder and biliary ducts: Cholelithiasis. Pancreas: Normal. No ductal dilation. Spleen: Normal. No splenomegaly. Adrenal glands: Normal. No mass. Kidneys and ureters: Normal. No hydronephrosis. Stomach and bowel: Unremarkable. No obstruction. No mucosal thickening. Appendix: No evidence of appendicitis. Intraperitoneal space: Unremarkable. No free air. No significant fluid collection. Vasculature: Unremarkable. No abdominal aortic aneurysm. Lymph nodes: Unremarkable. No enlarged lymph nodes. Urinary bladder: Unremarkable as visualized. Reproductive: Unremarkable as visualized. Bones/joints: Unremarkable. No acute fracture. Soft tissues: Unremarkable. IMPRESSION: Cholelithiasis. No overt signs of cholecystitis.
[2024-12-17] MEDS: SODIUM CHLORIDE 0.9% 10ML SYR (RAD ONLY) 10 ML IV (02:41)
[2024-12-17] MEDS: IOPAMIDOL-370 (76%);100ML BOTTLE 75 ML IV (02:41)
[2024-12-17 02:54] VITALS: BP 128/77; PULSE 83; RESP 20; TEMP 36.8; O2SAT 98
== END 2024-12-17 03:01 | disposition home or self-care (01) ==
PROVIDERS: Emergency Provider Emergency Medicine
DX: R10.13 Epigastric pain (principal); R07.9 Chest pain, unspecified; R00.0 Tachycardia, unspecified; K80.20 Calculus of gallbladder without cholecystitis without obstruction; K52.9 Noninfective gastroenteritis and colitis, unspecified; R11.2 Nausea with vomiting, unspecified
CPT/HCPCS: 71045; 74177; 80053; 83690; 84484; 84703; 85025; 85378; 93005; 96374; 99284; 99285; J2405; Q9967